=== PATIENT | female | born 1935 | race Caucasian/White ===

== ENCOUNTER 2017-11-14 17:11 | Emergency (ER) | payer OTHER ==
[~2017-11-14] VITALS: Ht 152.4 cm; Wt 61.7 kg
[~2017-11-14 17:11] MED LIST: ACETAMINOPHEN325 M1 PO; AMBIEN 5 MG TABL5 M1 PO; AMLODIPINE; ANTACID650 MG PO; BAYER CHEWABLE81 MG PO; CALCIUM PO; CARAFATE; CARAFATE 1 GM TA1 G1 PO; CIPROFLOXACIN500 M1 PO; COLACE100 MG PO; DOCUSATE SODIU100 MG PO; DYRENIUM100 MG; FLAGYL 250 MG250 MG OR; FLEXERIL PO; GLUCOPHAGE500 MG PO; HYDRALAZINE 2525 MG PO; HYDROCODON-ACE1 EACH PO; HYDROCODONE-AP1 EAC6 PO; IRON PO; IRON325 PO; LIPITOR10 MG PO; LISINOPRIL20 MG PO; METFORMIN; NORCO 5-325 TA1 EACH PO; NORVASC10 MG PO; ONDANSETRON HCL4 M2 PO; PERCOCET PO; PHENERGAN; PHENERGAN 25 MG25 M1 PO; PROTONIX; PROTONIX40 M2 PO; RESTORIL15 MG PO; SENNA PO; TEMAZEPAM; TRIAMTERENE-HC1 EAC1 PO; TYLENOL325 MG PO; VERAPAMIL HCL360 MG PO; VITAMIN D1000 UNI1 PO; ZOFRAN ODT4 MG PO; ZOFRAN4 MG PO
[2017-11-14 17:44] VITALS: BP 128/51
[2017-11-14 20:00] LABS: ABSOLUTE NEUTROPHILS 9.1 thou/uL (1.4-8.2); BASOPHILS 0.4 % (0.0-2.0); EOSINOPHILS 1.4 % (0.0-3.0); HEMATOCRIT 37.8 % (37.0-47.0); HEMOGLOBIN 12.8 gm/dL (12.0-15.0); LYMPHOCYTES 8.3 % (24.0-44.0); MCH 29.3 pg (26.0-34.0); MCHC 33.8 g/dL (28.0-37.0); MCV 86.5 fL (80.0-100.0); MONOCYTES 3.5 % (1.0-8.0); PLATELET COUNT 269 thou/uL (150-400); POLYS 86.4 % (36.0-66.0); RBC 4.37 mil/uL (4.20-5.00); RDW 13.9 % (10.5-14.5); WBC 10.6 thou/uL (4.0-11.0)
[2017-11-14 20:12] LABS: CALCIUM 9.4 mg/dL (8.5-10.1); CREATININE 1.2 mg/dL (0.6-1.0); POTASSIUM 4.1 mmol/L (3.5-5.1)
[2017-11-14 20:17] LABS: ALBUMIN 3.6 g/dL (3.4-5.0); TOTAL BILIRUBIN 1.1 mg/dL (<0.1-1.0); TOTAL PROTEIN 7.8 g/dL (6.4-8.2)
[2017-11-14] MEDS ORDERED: NORCO 10-325 T1 EACH PO (22:35)
[2017-11-14] MEDS ORDERED: LIPITOR10 MG PO (22:35)
[2017-11-14] MEDS ORDERED: MULTIVITAMINS1 EAC6 PO (22:35)
[2017-11-14 23:04] LABS: URINE BILIRUBIN NEGATIVE (Negative); URINE BLOOD TRACE (Negative); URINE CLARITY CLEAR; URINE GLUCOSE-RANDOM* NEGATIVE (Negative); URINE KETONES NEGATIVE (Negative); URINE NITRITE-REFLEX NEGATIVE (Negative); URINE PROTEIN (DIPSTICK) NEGATIVE (Negative); URINE SPECIFIC GRAVITY <= 1.005 (1.005-1.035)
[2017-11-14 23:11] LABS: URINE COLOR YELLOW; URINE LEUKOCYTES-REFLEX 2+ (Negative)
[2017-11-14 23:12] LABS: CASTS None Seen /LPF (None Seen); MUCUS None Seen strn/LPF (None Seen); SQUAMOUS 0-3 Few /LPF (0-3)
[2017-11-14 23:13] LABS: BACTERIA-REFLEX 1-9 Few /HPF (None Seen); CRYSTALS None Seen /LPF (None Seen); URINE RBC 0-2 Rare /HPF (0-2); WBC CLUMPS Occasional (None Seen)
[2017-11-15 01:00] VITALS: BP 102/46
[2017-11-15 04:00] VITALS: BP 106/52
[2017-11-15 05:41] LABS: ANION GAP 9 mmol/L (7-16); BUN 18 mg/dL (7-18); CALCIUM 8.6 mg/dL (8.5-10.1); CHLORIDE 104 mmol/L (98-107); CHOLESTEROL 94 mg/dL (<200); CO2 26 mmol/L (21-32); CREATININE 0.9 mg/dL (0.6-1.0); GLUCOSE 93 mg/dL (74-106); HDL CHOLESTEROL 50 mg/dL (>40); LDL CHOLESTEROL 36 mg/dL (<100); SODIUM 139 mmol/L (136-145); TC:HDL 1.9 Ratio (Not establshd); TRIGLYCERIDE 40 mg/dL (<150); VLDL 8 mg/dL (<40)
[2017-11-15 05:48] LABS: SERUM ASSESSMENT Clear
[2017-11-15 11:12] LABS: ALBUMIN 2.9 g/dL (3.4-5.0); DIRECT BILIRUBIN 0.3 mg/dL (<0.1-0.3); TOTAL BILIRUBIN 0.5 mg/dL (<0.1-1.0); TOTAL PROTEIN 5.9 g/dL (6.4-8.2)
[2017-11-15] MEDS ORDERED: CEFUROXIME250 MG PO (11:16)
[2017-11-15 11:31] VITALS: BP 127/64
[2017-11-15 12:00] VITALS: BP 127/64
[2017-11-15 14:10] LABS: HAV IgM AB (ANTI-HAV IgM) Negative (Negative); HEPATITIS B SURFACE AG Negative (Negative); HEPATITIS C VIRUS AB 0.2 (0.0-0.9)
== END 2017-11-15 12:01 | disposition still patient (30) ==
LOC: ER 17:11 → EROBS 23:12
PROVIDERS: Hospitalist; Nurse Practitioner Family; Physician Assistant
DX: K83.8 Other specified diseases of biliary tract (principal); R74.0 Nonspecific elevation of levels of transaminase and lactic acid dehydrogenase [LDH]; R11.2 Nausea with vomiting, unspecified; I10 Essential (primary) hypertension; E11.9 Type 2 diabetes mellitus without complications; E78.00 Pure hypercholesterolemia, unspecified; K21.9 Gastro-esophageal reflux disease without esophagitis; Z79.899 Other long term (current) drug therapy; Z79.82 Long term (current) use of aspirin

== ENCOUNTER → 2018-02-06 | Outpatient (CLI) | payer OTHER ==
[~2018-02-06] VITALS: Ht 152.4 cm; Wt 62.1 kg
[~2018-02-06] MED LIST changes: +CEFUROXIME250 MG PO; +MULTIVITAMINS1 EAC6 PO; +NORCO 10-325 T1 EACH PO; +TOLTERODINE TART4 MG PO
--- NOTE | ~2018-02-06 | P ---
[facility] [place] [address] PROCEDURE REPORT Name: BAILEY LEIVA [facility] [id number] Admission: 02/06/18 Attend Phys: Gurmeet Carlisle Discharge: Date of : 34 Report #: [id number] THIS REPORT FOR: //name// CC: Gurmeet Gooden MD DATE OF SERVICE: 02/06/2018 PROCEDURE PERFORMED: Upper endoscopy with esophageal dilation. HISTORY OF PRESENT ILLNESS: The patient is an 82-year-old female with history of gastroesophageal reflux disease with severe grade D erosive esophagitis on her last upper endoscopy. This was despite being on Protonix b.i.d. and Carafate twice a day. She is now on Protonix b.i.d. and Carafate 4 times a day, continues to have dysphagia. I did not proceed with dilation last time due to severe esophagitis. Biopsies of the esophagus were negative for intestinal metaplasia or dysplasia. Plan is for repeat upper endoscopy. DESCRIPTION OF PROCEDURE: The risks and benefits of the procedure were explained to the patient, those risks including but not limited to bleeding, perforation, the risk of sedation. She understood these risks and gave informed consent. Sedation was given using propofol per anesthesia. Next, using a standard Olympus upper endoscope, the scope was placed in the patient's mouth and advanced under direct vision through the esophagus, stomach and into the second portion of the duodenum. The upper esophagus was normal. Again, in the mid to distal esophagus severe grade D erosive esophagitis with ulcerations were noted. There was a stricture at the GE junction again noted. Upon entering the stomach, a small to medium sized hiatal hernia was again noted. Overall, the gastric mucosa was normal. 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 No evidence of bleeding. The pylorus was normal and patent. The duodenal bulb, first and second portion were all normal. The scope was then brought back up into the distal esophagus and I proceeded with balloon dilation of the stricture at the GE junction initially using a 12-13-15 balloon and then a 15-16-17 balloon. There was a small amount of bleeding after the 17 mm balloon was held in place for a minute. This bleeding spontaneously stopped. At this point, the scope was then withdrawn and the procedure terminated. The patient tolerated the procedure well. IMPRESSION: 1. Severe grade D erosive esophagitis despite being on b.i.d. proton pump inhibitor therapy and Carafate 4 times a day. This is similar to previous appearance. 2. Strictured gastroesophageal junction, status post balloon dilation. 3. Hiatal hernia. [address] [address] PROCEDURE REPORT Name: ABBIEBAILEY Room #: REG VAN Sood#: [id number] Admission: 02/06/18 Attend Phys: Gurmeet Carlisle Discharge: Date of : 34 Report #: [id number] RECOMMENDATIONS: 1. Observe the patient post procedure. 2. Continue current medical regimen. 3. As we have discussed in the past, options at this point are limited, but would consider Heron fundoplication. With her age and other medical problems she is an increased risk obviously. Could consider promotility agent, but there are potential side effects with Reglan and erythromycin. We will again discuss with the patient and her family. Thank you for allowing me to participate in her care. <ELECTRONICALLY SIGNED> By: Gurmeet Daniel MD 02/07/18 1139 [id number] 1110 Gurmeet Daniel MD /nt
== END | disposition home or self-care (01) ==
LOC: GI 06:17
DX: K22.10 Ulcer of esophagus without bleeding (principal); K22.2 Esophageal obstruction; K44.9 Diaphragmatic hernia without obstruction or gangrene; I10 Essential (primary) hypertension; E78.5 Hyperlipidemia, unspecified; D64.9 Anemia, unspecified; K21.9 Gastro-esophageal reflux disease without esophagitis; Z96.611 Presence of right artificial shoulder joint; Z90.49 Acquired absence of other specified parts of digestive tract; Z85.3 Personal history of malignant neoplasm of breast; Z90.5 Acquired absence of kidney; Z98.890 Other specified postprocedural states; Z79.899 Other long term (current) drug therapy; Z79.82 Long term (current) use of aspirin
CPT/HCPCS: 62110; 62900

== ENCOUNTER → 2019-02-09 | Outpatient (CLI) | payer OTHER ==
[~2019-02-09] VITALS: Ht 152.4 cm; Wt 65.8 kg
[~2019-02-09] MED LIST changes: +FEOSOL45 M1 PO; +TUMS X-STR300 MG PO
--- NOTE | 2019-02-14 08:11 | P ---
[facility] [place] [address] PROCEDURE REPORT Name: BAILEY LEIVA Room #: [facility] [id number] Admission: 02/09/19 Attend Phys: Gurmeet Carlisle Discharge: Date of : 34 Report #: [id number] THIS REPORT FOR: //name// CC: Gurmeet Gooden MD DATE OF SERVICE: 02/09/2019 PROCEDURE PERFORMED: Upper endoscopy with esophageal dilation. HISTORY OF PRESENT ILLNESS: The patient is an 83-year-old female, who is well known to me, who has recurrent dysphagia. She has gastroesophageal reflux disease with a history of severe grade D erosive esophagitis. This is despite being on b.i.d. Protonix and Carafate 4 times a day. We have discussed other possibilities including promotility agents and possible surgery in the past, but she has declined those. Last upper endoscopy was performed on 02/06/2018. Again, severe esophagitis was noted as well as a stricture at the GE junction. This was balloon dilated to a maximum of 17 mm. She did get significant improvement in her dysphagia, which lasted until recently, now having dysphagia again. Her weight has been stable. DESCRIPTION OF PROCEDURE: The risks and benefits of the procedure were explained to the patient, those risks including but not limited to bleeding, perforation and the risk of sedation. She understood these risks and gave informed consent. Sedation was given using propofol per anesthesia. Next, using a standard Olympus upper endoscope, the scope was placed in the patient's mouth and advanced under direct vision through the esophagus, stomach and into the second portion of the duodenum. Once again severe grade D erosive esophagitis was noted throughout the mid and distal esophagus, a stricture was once again noted at the GE junction. There was a similar appearance to 1 year ago. There was active reflux of liquid and semi-liquid material throughout the procedure today. Once I advanced the scope into the stomach, I decompressed and aspirated away all the liquid that was possible. She again has a medium to larger size hiatal hernia. The gastric mucosa was overall normal. Gastric antrum was normal. The pylorus was normal and patent. The duodenal bulb, first and second portion were all normal. The scope was then brought back up into the patient's distal esophagus and I proceeded with balloon dilation of the stricture at the GE junction, initially started with a 15, 16, 17 balloon and went up to 17 and this was held in place for one minute. Next ,an 18 balloon catheter was placed and I held this in place for one minute. No further dilations were performed after 18 mm. At this point, the scope was then withdrawn and the procedure was terminated. The patient tolerated the procedure well. IMPRESSION: [facility] [address] [place] [address] PROCEDURE REPORT Name: ABBIEBAILEY Room #: REG CLI Indigo#: [id number] Admission: 02/09/19 Attend Phys: Gurmeet Carlisle Discharge: Date of : 34 Report #: [id number] 1. Once again severe grade D erosive esophagitis with ulcerations. 2. Stricture gastroesophageal junction, status post balloon dilation. 3. Medium size hiatal hernia. RECOMMENDATIONS: 1. Observe the patient post-procedure. 2. We once again discuss with the patient and her family the potential options of adding Reglan or erythromycin, explained the potential for side effects or consider surgery or simply continue her current regimen and repeating dilation on a p.r.n. basis due to her age and other medical problems. Thank you for allowing me to participate in her care. <ELECTRONICALLY SIGNED> By: Gurmeet Daniel MD 02/14/19 0811 0946 1619 Gurmeet Daniel MD /nt
== END | disposition home or self-care (01) ==
LOC: GI 07:21
DX: K22.10 Ulcer of esophagus without bleeding (principal); K22.2 Esophageal obstruction; K44.9 Diaphragmatic hernia without obstruction or gangrene; K21.9 Gastro-esophageal reflux disease without esophagitis; I10 Essential (primary) hypertension; E78.00 Pure hypercholesterolemia, unspecified; D64.9 Anemia, unspecified; Z98.890 Other specified postprocedural states; Z79.899 Other long term (current) drug therapy; Z98.41 Cataract extraction status, right eye; Z90.49 Acquired absence of other specified parts of digestive tract; Z85.3 Personal history of malignant neoplasm of breast; Z98.42 Cataract extraction status, left eye; Z79.82 Long term (current) use of aspirin; Z90.5 Acquired absence of kidney
CPT/HCPCS: 62110; 62900

== ENCOUNTER 2019-03-03 11:11 | Inpatient (IN) | payer OTHER ==
[~2019-03-03] VITALS: Ht 152.4 cm; Wt 64.8 kg
[2019-03-03 11:12] VITALS: BP 128/67
[2019-03-03] MEDS ORDERED: HYDROXYZINE HCL10 M2 PO (11:52)
[2019-03-03] MEDS ORDERED: METOCLOPRAMIDE10 MG PO (11:52)
[2019-03-03 12:08] LABS: ABSOLUTE NEUTROPHILS 10.6 thou/uL (1.4-8.2); BASOPHILS 0.2 % (0.0-2.0); EOSINOPHILS 0.2 % (0.0-3.0); HEMATOCRIT 37.9 % (37.0-47.0); HEMOGLOBIN 12.4 gm/dL (12.0-15.0); LYMPHOCYTES 6.7 % (24.0-44.0); MCH 29.4 pg (26.0-34.0); MCHC 32.8 g/dL (28.0-37.0); MCV 89.7 fL (80.0-100.0); MONOCYTES 4.9 % (1.0-8.0); PLATELET COUNT 320 thou/uL (150-400); RBC 4.22 mil/uL (4.20-5.00); RDW 13.8 % (10.5-14.5); WBC 12.1 thou/uL (4.0-11.0)
[2019-03-03 12:27] LABS: ANION GAP 9 mmol/L (7-16); BUN 26 mg/dL (7-18); CALCIUM 8.6 mg/dL (8.5-10.1); CHLORIDE 100 mmol/L (98-107); CO2 23 mmol/L (21-32); CREATININE 1.2 mg/dL (0.6-1.0); GLUCOSE 120 mg/dL (74-106); POTASSIUM 4.1 mmol/L (3.5-5.1); SODIUM 132 mmol/L (136-145)
[2019-03-03 12:37] LABS: DIRECT BILIRUBIN 0.2 mg/dL (<0.1-0.2); LIPASE 44 U/L (73-393); SGOT 44 U/L (15-37); SGPT 49 U/L (30-65); TOTAL BILIRUBIN 0.5 mg/dL (<0.1-1.0); TOTAL PROTEIN 6.5 g/dL (6.4-8.2); TROPONIN-I <0.06 ng/mL (<0.06)
[2019-03-03 12:42] LABS: URINE BILIRUBIN NEGATIVE (Negative); URINE BLOOD NEGATIVE (Negative); URINE CLARITY CLEAR; URINE COLOR YELLOW; URINE GLUCOSE-RANDOM* NEGATIVE (Negative); URINE KETONES NEGATIVE (Negative); URINE NITRITE-REFLEX NEGATIVE (Negative); URINE PROTEIN (DIPSTICK) NEGATIVE (Negative); URINE SPECIFIC GRAVITY 1.015 (1.005-1.035); URINE UROBILINOGEN 0.2 E.U./dl (0.2-1.0)
[2019-03-03 12:46] LABS: URINE LEUKOCYTES-REFLEX 1+ (Negative)
[2019-03-03 12:57] LABS: BACTERIA-REFLEX >30 Many /HPF (None Seen); CASTS None Seen /LPF (None Seen); CRYSTALS None Seen /LPF (None Seen); SQUAMOUS 4-10 Moderate /LPF (0-3); URINE RBC None Seen /HPF (0-2); URINE WBC-REFLEX 6-15 Few /HPF (0-5)
[2019-03-03 14:39] VITALS: BP 114/54
[2019-03-03 15:26] VITALS: BP 110/45; BP 120/59
--- NOTE | 2019-03-03 15:32 | NUR ---
PATIENT ARRIVED VIA CART ESCORTED BY ED LIBRARIAN HEAD. PATIENT AOX4, CONSENTS SIGNED, ADMISSION EDUCATION PROVIDED. PT VERBALIZES ACCURATE UNDERSTANDING. PT REQUESTED TO URINATE, STATES SHE IS UNABLE TO GET OUT OF BED R/T WEAKNESS. ASSISTED PT WITH BED WELLS. ADMISSION COMPLETE WITH EXCEPTION OF ASSESSMENT AND PICTURES OF SKIN. REPORT TO BE GIVEN TO ONCOMING RN. FALL PRECAUTIONS IN PLACE, CALL LIGHT IN REACH.
[2019-03-03 19:00] VITALS: BP 119/48
[2019-03-04 04:34] LABS: HEMATOCRIT 32.5 % (37.0-47.0); HEMOGLOBIN 10.6 gm/dL (12.0-15.0); MCH 29.4 pg (26.0-34.0); MCHC 32.6 g/dL (28.0-37.0); RBC 3.61 mil/uL (4.20-5.00); RDW 13.5 % (10.5-14.5)
[2019-03-04 04:53] LABS: CALCIUM 8.4 mg/dL (8.5-10.1); POTASSIUM 3.7 mmol/L (3.5-5.1)
--- NOTE | 2019-03-04 05:02 | NUR ---
Pt. rested quietly at intervals during the night when checked on during frequent rounds. Pt. does have a rash on her buttocks and reports that she has had it for awhile. She reports that she has seen a Dr. about it, but does not seem to know what is causing it. Pt. also informs this nurse that it does itch. Noted to have like speratic tiny skin breakdown from scratching at it and it is red with inflammation. Consult put in for wound care nurse. She has been up to the bedside comode with one assist and gait belt. Pt. offers no c/o pain. Bed alarm is on.
[2019-03-04 08:28] VITALS: BP 153/65
--- NOTE | 2019-03-04 11:40 | EKG ---
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 : 1935 Requested By: Harris Casper Order Number: [id number] MD: Gerardo Renee Measurements Intervals [place] Rate: 96 P: 13 VT: 210 QRS: -64 QRSD: 117 T: 23 QT: 385 QTc: 487 Interpretive Statements Sinus rhythm Borderline prolonged VT interval Incomplete right bundle branch block Left anterior hemiblock Baseline wander in lead(s) V1,V6 Compared to ECG 02/05/2015 03:51:25 No significant change was found Electronically Signed On 03-04-2019 11:40:03 INVESTIGATION MANAGER by Gerardo Renee [email or web address] <ELECTRONICALLY SIGNED> By: Gerardo Renee MD, [facility] 03/04/19 1140 1215 1215 Gerardo Renee MD, [facility] /EPI
[2019-03-04 14:59] VITALS: BP 138/62
--- NOTE | 2019-03-04 17:04 | NUR ---
Assumed patient care at 0715. Vital signs have been stable. Dr Enciso here this am, he discontinued IV fluids. Patient continues on IV ABT therapy with no adverse reactions. Dr Enciso phoned this evening about lab report of "positive blood culture, gram cocci in chains." Awaiting Dr Enciso's return phone call. Dr Caraballo here this am per patient's bilateral knee pain. He is to give patient Steroid Injection in each knee tomorrow. Everything needed for this except Lidocaine is in patient's bin. Dr Viera here this evening. She gave orders for Vancomycin Pharmacy dose, after this nurse informed her of latest lab results. Will inform on-coming nurse and continue to monitor.
[2019-03-04 21:15] VITALS: BP 136/62
--- NOTE | 2019-03-05 04:48 | NUR ---
Pt. rested quietly at intervals during the night when checked on during frequent rounds. She has been voiding frequently and is currently being treated for urinary tract infection. Bed alarm is on.
[2019-03-05 08:00] VITALS: BP 161/66
--- NOTE | 2019-03-05 08:50 | NUR ---
WOUND CONSULT; RE; BILATERAL BUTTOCKS RASH. ERYTHEMA WITH SKIN SLOUGHING. PT STATES "ITS ITCHY" THE RIGHT ELBOW HAS FLAKY ITCHY SKIN WELL. tHE PRESENTATION IS SUSPICIOUS OF A FUNGAL RASH. PT ALERT AND ORIENTED AND CAN TURN HERSELF EASILY. RECOMMENDATION; ANTIFUNGAL BARRIER CREAM TO THE BUTTOCKS BILATERALLY AND THE RIGHT ELBOW, BID RN PRESENT
[2019-03-05] MEDS ORDERED: HYDROCODON-ACE1 EAC7 PO (09:52)
[2019-03-05] MEDS ORDERED: KEFLEX500 M1 PO (09:52)
--- NOTE | 2019-03-05 14:02 | NUR ---
PT ADMITTED RELATED TO UTI, WEAKNESS, BILAT KNEE OSTEOARTHRITIS. CM REVIEWED CHART AND SPOKE WITH CARE TEAM. CM MET WITH PT AT BEDSIDE THIS DAY. PT IS A&O X4. CM ROLE INTRODUCED. PT INDICATED SHE LIVES IN A HOUSE WITH HER TWO SONS AND DTR. SHE INDICATED THERE AREN'T ANY STEPS TO ENTER BUT 10 INSIDE. PT INDICATED SHE HAS TWO WALKERS FOR USE AT HOME ONE ON EACH LEVEL OF THE HOUSE. PT INDICATED SHE HAD BEEN TO A SNF IN [place] IN THE PAST BUT DIDN'T THINK SHE HAD HH. PT INDICATED SHE HOPES TO BE ABLE TO RETURN HOME ONCE MEDICALLY STABLE. CM CALLED AND LEFT FOR PT'S SON. PT HAD INJECTIONS IN BL KNEES THIS MORNING. AWAITING PT AND OT TO SEE PT. CM TO FOLLOW INDICATED WITH DC PLANNING.
[2019-03-05 15:00] VITALS: BP 164/75
--- NOTE | 2019-03-05 15:55 | NUR ---
DISCHARGE PLANNING. DISCHARGE PLANNED FOR TOMORROW. POST ACUTE RECOMMENDED AT DISCHARGE. PATIENT REFERRAL FAXED TO [facility] PER REQUEST. CALL PLACED TO [facility] ADMISSIONS, TO NOTIFY. LANDON TO REVIEW AND NOTIFY. FOLLOWING.
[2019-03-05 19:20] VITALS: BP 133/76
--- NOTE | 2019-03-05 20:04 | NUR ---
Assumed pt care this am , BP was slightly elevated this am, informed md, new medications ordered. Wound care done by wound care nurse to the buttocks and right elbow. Bilateral knees were injecteed by Dr. Caraballo for the pain and swelling. Pt is able to turn from side to side and sit and transfer to the recliner with min help. POC followed, no signs or verbalizations of distress have been noted. IV line was out from endorsement, IV team called and was replaced. When IV for the late pm abx, IV infiltrated, endorsed to the night nurse.
--- NOTE | 2019-03-06 02:28 | NUR ---
PT IS A/O X4.PT IS UP WITH X1 ASSIST WITH WALKER TO BATHROOM OR BSC.PT HAS RASHES ON ELBOW AND BUTTOCKS AND HAS FUNGI CREAM TO APPLY ON.PT IV IS ON THE RFA.PT HAS A LT LIMB ALERT DUE TO MASTECTOMY.PT HAD A LARGE LOSS BM LAST NIGHT .PT DENIED PAIN .WILL CONTINUE TO MONITOR POC
[2019-03-06 07:25] VITALS: BP 142/71
--- NOTE | 2019-03-06 13:22 | NUR ---
ASSUMED CARE OF PT AT APPROX 0700. PT IS ALERT AND ORIENTED X4. DENIES PAIN AND SOA ANDIS ABLE TO MAINTAIN 02 SAT >90 ON RA. EVEN NON LABORED BREATHING. PT STATES THAT SHE IS FEELING SO MUCH BETTER AND IS READY TO GO HOME TO HET KIDS. PT WAS UPDATED ON POC. ASSESSMENT CHARTED. PT DENIES ANY CONCERNS OR QUESTIONS CURRENTLY. NAD NOTED. WILL CONTINUE TO MONITOR.
[2019-03-06 15:30] VITALS: BP 137/68
--- NOTE | 2019-03-08 10:45 | HC ---
[facility] [place] [address] CONSULTATION Name: BAILEY LEIVA Room #: 451-P [facility] IN M.R.#: [id number] Admission: 03/03/19 Attend Phys: Jovanny Enciso MD Discharge: 03/06/19 Date of : 34 Report #: [id number] THIS REPORT FOR: //name// CC: Jovanny Gooden HISTORY OF PRESENT ILLNESS: This frail, confused 83-year-old female lives at home with family assistance. She has had chronic progressive bilateral knee pain in the past, noting some medical and injection management at some point in the past with limited benefit. She is admitted now because of generalized weakness combined with progressive bilateral knee pain making ambulation difficult. At the time of my evaluation, she is somewhat confused. She does note chronic bilateral knee pain making ambulation difficult. She notes she has had some injections at some point in the past with limited benefit. She has been on pain medication in the past, also with some benefit. Objectively both knees demonstrate significant crepitus and mild swelling consistent with severe degenerative arthritis. There is moderate laxity with varus and valgus stress and with manipulation of the patella consistent with severe 3 compartment degenerative arthritis. There is no redness or warmth and no sign of infection. Neurologic status seems to be intact. X-rays of both knees were obtained and hip reveal severe end-stage degenerative arthritis involving all three compartments of both the right and left knee. IMPRESSION: I have discussed this at some length with the patient. She prefers to be very conservative. She notes that she would not be inclined to consider any surgery. She has had some benefit with oral medications directed by her primary care physician. She notes she had temporary improvement with the injection in the past and would like to try that option once again. I would suggest going ahead with bilateral knee injections using 80 mg of Depo-Medrol. We can proceed with discharge and family care at home. We are certainly happy to see her in the office for followup visit and repeat injections in the future if these are helpful. <ELECTRONICALLY SIGNED> By: Audi Caraballo MD 03/08/19 1045 1038 1223 Audi Caraballo MD /nt
== END 2019-03-06 17:45 | DRG 690 ==
LOC: ER 11:11 → EROBS 13:33 → 4W 13:33
PROVIDERS: Emergency Medicine; ADMIT Hospitalist
PROC: 3E0U33Z Introduction of Anti-inflammatory into Joints, Percutaneous Approach (ICD-10-PCS; principal; 2019-03-04)
DX: N39.0 Urinary tract infection, site not specified (principal); M17.0 Bilateral primary osteoarthritis of knee; R06.02 Shortness of breath; R05 Cough; R21 Rash and other nonspecific skin eruption; I35.0 Nonrheumatic aortic (valve) stenosis; E55.9 Vitamin D deficiency, unspecified; E78.00 Pure hypercholesterolemia, unspecified; K44.9 Diaphragmatic hernia without obstruction or gangrene; E11.9 Type 2 diabetes mellitus without complications; I10 Essential (primary) hypertension; K21.9 Gastro-esophageal reflux disease without esophagitis; Z90.12 Acquired absence of left breast and nipple; Z90.5 Acquired absence of kidney; Z90.49 Acquired absence of other specified parts of digestive tract; Z90.89 Acquired absence of other organs; Z98.42 Cataract extraction status, left eye; Z98.41 Cataract extraction status, right eye; Z79.82 Long term (current) use of aspirin; Z79.899 Other long term (current) drug therapy
CPT/HCPCS: 10047

== ENCOUNTER 2019-03-15 21:16 | Emergency (ER) | payer OTHER ==
[~2019-03-15] VITALS: Ht 162.6 cm; Wt 74.8 kg
[~2019-03-15 21:16] MED LIST changes: +HYDROCODON-ACE1 EAC7 PO; +HYDROXYZINE HCL10 M2 PO; +KEFLEX500 M1 PO; +METOCLOPRAMIDE10 MG PO
[2019-03-15 22:35] LABS: HEMATOCRIT 32.7 % (37.0-47.0); HEMOGLOBIN 10.3 gm/dL (12.0-15.0); MCH 28.2 pg (26.0-34.0); MCHC 31.7 g/dL (28.0-37.0); MCV 89.1 fL (80.0-100.0); PLATELET COUNT 312 thou/uL (150-400); RBC 3.67 mil/uL (4.20-5.00); RDW 13.5 % (10.5-14.5); WBC 23.4 thou/uL (4.0-11.0)
[2019-03-15 22:36] LABS: ANION GAP 13 mmol/L (7-16); BUN 32 mg/dL (7-18); CALCIUM 8.3 mg/dL (8.5-10.1); CHLORIDE 99 mmol/L (98-107); CO2 23 mmol/L (21-32); CREATININE 1.4 mg/dL (0.6-1.0); GLUCOSE 133 mg/dL (74-106); POTASSIUM 4.2 mmol/L (3.5-5.1); SODIUM 135 mmol/L (136-145)
[2019-03-15 22:47] LABS: ALBUMIN 2.9 g/dL (3.4-5.0); MAGNESIUM 1.2 mg/dL (1.8-2.4); SGOT 38 U/L (15-37); SGPT 38 U/L (30-65); TOTAL BILIRUBIN 0.6 mg/dL (<0.1-1.0); TOTAL PROTEIN 6.4 g/dL (6.4-8.2); TROPONIN-I <0.06 ng/mL (<0.06)
[2019-03-15 23:18] LABS: URINE BILIRUBIN NEGATIVE (Negative); URINE BLOOD NEGATIVE (Negative); URINE CLARITY CLEAR; URINE COLOR YELLOW; URINE GLUCOSE-RANDOM* NEGATIVE (Negative); URINE KETONES NEGATIVE (Negative); URINE LEUKOCYTES-REFLEX NEGATIVE (Negative); URINE NITRITE-REFLEX NEGATIVE (Negative); URINE PROTEIN (DIPSTICK) NEGATIVE (Negative); URINE SPECIFIC GRAVITY 1.025 (1.005-1.035); URINE UROBILINOGEN 0.2 E.U./dl (0.2-1.0)
[2019-03-15 23:22] LABS: ABSOLUTE NEUTROPHILS 22.2 thou/uL (1.4-8.2); PLATELET ESTIMATE NORMAL
[2019-03-16] MEDS ORDERED: TAMIFLU75 MG PO (02:43)
[2019-03-16 04:42] VITALS: BP 100/44
--- NOTE | 2019-03-16 13:54 | EKG ---
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
== END 2019-03-16 04:45 | disposition home or self-care (01) ==
LOC: ER 21:16
PROVIDERS: Emergency Medicine
DX: D72.829 Elevated white blood cell count, unspecified (principal); D64.9 Anemia, unspecified; N18.9 Chronic kidney disease, unspecified; J10.1 Influenza due to other identified influenza virus with other respiratory manifestations; E83.42 Hypomagnesemia; I10 Essential (primary) hypertension

== ENCOUNTER 2019-03-21 23:41 | Inpatient (IN) | payer OTHER ==
[~2019-03-21] VITALS: Ht 152.4 cm; Wt 84.6 kg
[~2019-03-21 23:41] MED LIST changes: +TAMIFLU75 MG PO
[2019-03-21 23:43] VITALS: BP 77/36
[2019-03-22] VITALS (81 sets, daily range): BP systolic 73–154; BP diastolic 19–58
[2019-03-22 00:29] LABS: BE(vivo) -11.4 mmol/L (-2 to +3); PCO2 VENOUS 30.2 mmHg (41.0-51.0)
[2019-03-22 00:31] LABS: HEMATOCRIT 31.4 % (37.0-47.0); HEMOGLOBIN 10.2 gm/dL (12.0-15.0); MCH 28.4 pg (26.0-34.0); MCHC 32.4 g/dL (28.0-37.0); MCV 87.6 fL (80.0-100.0); PLATELET COUNT 542 thou/uL (150-400); RBC 3.58 mil/uL (4.20-5.00); RDW 13.4 % (10.5-14.5); WBC 26.6 thou/uL (4.0-11.0)
[2019-03-22 00:38] LABS: CALCIUM 8.1 mg/dL (8.5-10.1); CREATININE 2.9 mg/dL (0.6-1.0); POTASSIUM 3.2 mmol/L (3.5-5.1)
[2019-03-22 00:44] LABS: ALBUMIN 2.1 g/dL (3.4-5.0); DIRECT BILIRUBIN 0.2 mg/dL (<0.1-0.2); TOTAL BILIRUBIN 0.3 mg/dL (<0.1-1.0); TOTAL PROTEIN 5.8 g/dL (6.4-8.2)
[2019-03-22 01:29] LABS: URINE BILIRUBIN NEGATIVE (Negative); URINE BLOOD NEGATIVE (Negative); URINE CLARITY CLEAR; URINE COLOR YELLOW; URINE GLUCOSE-RANDOM* NEGATIVE (Negative); URINE KETONES NEGATIVE (Negative); URINE LEUKOCYTES-REFLEX NEGATIVE (Negative); URINE NITRITE-REFLEX NEGATIVE (Negative); URINE PROTEIN (DIPSTICK) NEGATIVE (Negative); URINE SPECIFIC GRAVITY >= 1.030 (1.005-1.035); URINE UROBILINOGEN 0.2 E.U./dl (0.2-1.0)
[2019-03-22 01:31] LABS: ABSOLUTE NEUTROPHILS 24.5 thou/uL (1.4-8.2); LARGE PLATELETS FEW; PLATELET ESTIMATE INCREASED
--- NOTE | 2019-03-22 03:10 | NUR ---
Pt arrived ICU. She is being admit for Leucocytosis, hypotension and Acute renal Failure. She appears to be drowsy, follow simple commands. Denies of any pain upon arrival. NSR on monitor, BP is low. NS bolus is in progress. Skin in cj areas and buttocks are very excoriation with several stages [address] Fecal management system regarding of above. No s/sx of any complication indicates. Temp 95.7 upon arrival, warming blankets applied. Hx obtained from her NH record, continue working toward goals.
--- NOTE | 2019-03-22 11:03 | NUR ---
CONSULTED TO PLACE A PICC FOR A PATIENT NEEDING ACCESS FOR SEPSIS. ORDER AND CONSENT NOTED. THE PROCEDURE WELL RISKS AND BENIFITS DISCUSSED WITH THE PATIENT AND SHE VERBALIZED UNDERSTANDING. THE RIGHT JUGULAR WAS WIDLEY PATENT. A #6F TRIPLE LUMEN POWER INJCETABLE CENTRAL LINE WAS PLACED PER HOSPITAL POLICY AFTER A BEDSIDE TIMEOUT WAS COMPLETED. LINE LENTH WAS 25CM AND ADVANCED TO 7CM EXTERNAL. A STAT CHEST XRAY CONFIRMED BY THE RADIOLOGIST LINE IS IN GOOD POSITION IN THE LOWER SVC. LINE RELAESED FOR USE
--- NOTE | 2019-03-22 13:08 | NUR ---
WOUND CARE CONSULT; THE PATIENT HAS WOUNDS(S) RE; INCONTINENT DERMATITIS, MOSTLY ON THE BUTTOCKS AND PERINEAL AREAS. ALL THE BUTTOCKS AND SACRUM AREAS HAVE ERYTHEMA THAT ARE BLANCHABLE. RECOMMEDNATIONS; 1-2% LIDOCAINE MIXED WITH SILVADINE,COVER WITH A SACRAL FOAM, APPLY BID/PRN RN PRESENT
[2019-03-22 13:09] LABS: CALCIUM 7.1 mg/dL (8.5-10.1); CREATININE 2.2 mg/dL (0.6-1.0); MAGNESIUM 2.7 mg/dL (1.8-2.4); POTASSIUM 3.5 mmol/L (3.5-5.1)
--- NOTE | 2019-03-22 15:41 | NUR ---
CM ASSESSMENT: CASE OPENED FOR DC PLANNING. CLINICAL INFO REVIEWED. PT ADMITS FROM SK[facility] AT [facility] ADMIT WITH LEUKOCYTOSIS, DIARRHEA HYPOTENSION. C. DIFF IS PENDING. INFO OBTAINED FROM PT AND ON PHONE CALL WITH HER SON SYDNEY LEIVA. PT LIVES IN HOUSE WITH 2 SONS AND DTR. USES WALKER AT HOME. NO PREVIIOUS HH. RECENT [facility] ADMIT AND DC TO [place] [place] [facility]. PT AND SON BOTH STATE GOAL TO RETURN TO SKILLED REHAB AT [facility] ONCE MEDICALLY STABLE. SPOKE WITH LANDON IN ADMISSIONS AT FACILITY AND REQUESTED DC PROMOTIONS PRODUCER FAX H&P TO LANDON. LANDON REQUESTS UPDATED ON C. DIFF STATUS WHEN KNOWN.
[2019-03-22 16:17] LABS: POTASSIUM 3.4 mmol/L (3.5-5.1)
--- NOTE | 2019-03-22 16:18 | NUR ---
PT RESIDES AT [facility] FAXED CLINICAL UPDATE SPOKE WITH LANDON IN ADM SHE RECEIVED UPDATE. DP TO FOLLOW.
--- NOTE | 2019-03-22 17:47 | NUR ---
Assumed care at 0700. PT appears asleep and is difficult to rouse. PT is oriented to person, place, and time however she cannot remember why she was brought to the hospital and does not remember earlier conversations. PT worked with therapy this afternoon and appeared more alert afterwards. PT appears anxious and frequently asks staff why she is here and what the treatment plan is. PT has been educated several times but reinforcement is required. PT continued to use a whistle that was around her neck on a string several times in addition to pressing her call light. PT was educated that it was not safe wrapped around her neck and was not allowed in the ICU environment as the noise is disruptive to other patients and family members. PT was tearful and finally moved her whistle after much education from nursing staff. The whistle was placed in the bag with her other belongings. Dr. Champion ordered PT to be transferred [facility] of [facility] with tele. catastrophe claims supervisor and charge nurse are aware. PT's mother and daughter were educated earlier that this could be a possibility. They were agreeable to transfer if it occurred. Fall precautions in place. Call light is within reach. Nurse will continue to monitor.
--- NOTE | 2019-03-22 18:34 | NUR ---
Assumed care at 0700. PT appears drowsy and is oriented x4. Wound care was present to see PT and applied cream and dressing to her buttocks wound. Dr. Estrada on unit to see PT. He initiated sepsis protocol after nurse notified him that PT met sepsis criteria. PT currently has levophed gtt running at 6 mcgs/min. She is on room air. FMS and zeng catheter are patent and intact. Dr. Miller and Dr. Thomas were consulted per sepsis protocol. Providers were contacted. Fall precautions in place. PT is encouraged to drink ensure shakes frequently. PT obliges sometimes and seems to tolerate them well. PO medications were held because PT stated she could "not swallow those." Call light is within reach. PT appears to be resting comfortably. Nurse will continue to monitor.
[2019-03-22 21:47] LABS: CALCIUM 7.1 mg/dL (8.5-10.1); CREATININE 1.9 mg/dL (0.6-1.0)
[2019-03-23] VITALS (48 sets, daily range): BP systolic 89–132; BP diastolic 34–111
[2019-03-23 05:32] LABS: HEMATOCRIT 31.4 % (37.0-47.0); HEMOGLOBIN 10.2 gm/dL (12.0-15.0); MCH 28.6 pg (26.0-34.0); MCHC 32.4 g/dL (28.0-37.0); MCV 88.2 fL (80.0-100.0); RBC 3.55 mil/uL (4.20-5.00); RDW 14.3 % (10.5-14.5)
[2019-03-23 05:33] LABS: WBC 40.7 thou/uL (4.0-11.0)
[2019-03-23 05:49] LABS: % SATURATION 14 % (20-39); IRON 12 ug/dL (50-170); TIBC 85 ug/dL (250-450)
[2019-03-23 05:57] LABS: ALBUMIN 1.5 g/dL (3.4-5.0); CALCIUM 7.1 mg/dL (8.5-10.1); CREATININE 1.7 mg/dL (0.6-1.0); MAGNESIUM 2.3 mg/dL (1.8-2.4); POTASSIUM 3.6 mmol/L (3.5-5.1); TOTAL BILIRUBIN 0.2 mg/dL (<0.1-1.0); TOTAL PROTEIN 4.5 g/dL (6.4-8.2)
[2019-03-23 06:01] LABS: BE(vivo) -13.6 mmol/L (-2 to +3); HCO3 10.8 mmol/L (22.0-26.0); PO2 74.2 mmHg (80.0-100.0)
[2019-03-23 06:02] LABS: PCO2 22.4 mmHg (35.0-45.0); pH 7.303 (7.360-7.450)
--- NOTE | 2019-03-23 07:54 | NUR ---
Progressing toward goals. At beginning of shift levophed titrated up to 12 mcg/min to keep MAP >/= 65. By 0200 able to titrate levophed down to 10 mcg/min, MAP remains > 65. Urine output still marginal at 20-30 cc/hr toward end of shift. Pt had total of 350 cc urine for 12 hours. FMS still patent, 200 cc green-brown liquid stool. Buttocks and cj-area still very excoriated, sacral border drsg intact, surrounding area covered with Z-guard mixed with 2% lidocaine jelly for protection and to ease discomfort.
--- NOTE | 2019-03-23 16:13 | NUR ---
NOTIFIED LANDON IN ADMISSIONS AT [facility] OF PT'S C. DIFF POSITIVE STATUS. NO W/E DC PLANNED.
--- NOTE | 2019-03-23 17:58 | NUR ---
PT appears more disoriented this afternoon. She can correctly identify the year and where she is however she was observed trying to pick at her central line dressing. PT was educated that it should not be pulled out or picked out as this can cause injury and infection. PT verbalized understanding. Nurse changed the dressing on the central line using sterile technique. PT tolerated procedure well. PT is currently sitting in bed. She has refused her ensures. Education was provided. Nurse will continue to encourage supplements. Call light is within reach. Fall precautions in place. Nurse will continue to monitor.
[2019-03-24] VITALS (81 sets, daily range): BP systolic 87–173; BP diastolic 41–154
--- NOTE | 2019-03-24 04:07 | NUR ---
NO OVERNIGHT EVENTS. PT. DROWSY AND SLEEPY THROUGH MOST OF SHIFT. RESPONDS TO NAME, AND FOLLOWS COMMANDS. ONLY ORIENTED TO SELF. SMALL AMOUNT OF ORAL INTAKE THROUGHOUT THE NIGHT. ASSESSMENTS AND VITAL SIGNS CHARTED. MEDICATION TITRATION CHARTED. PT. NOT CURRENTLY PROGRESSING TOWARDS GOALS. CONTINUE TO FOLLOW POC. WILL CONTINUE TO MONITOR.
[2019-03-24 05:09] LABS: HEMOGLOBIN 10.1 gm/dL (12.0-15.0)
[2019-03-24 05:12] LABS: HEMATOCRIT 31.7 % (37.0-47.0); MCH 27.9 pg (26.0-34.0); MCHC 31.8 g/dL (28.0-37.0); MCV 87.7 fL (80.0-100.0); PLATELET COUNT 321 thou/uL (150-400); RBC 3.62 mil/uL (4.20-5.00); RDW 14.3 % (10.5-14.5)
[2019-03-24 05:28] LABS: WBC 41.9 thou/uL (4.0-11.0)
[2019-03-24 05:41] LABS: ALBUMIN 1.4 g/dL (3.4-5.0); CALCIUM 6.7 mg/dL (8.5-10.1); CREATININE 1.3 mg/dL (0.6-1.0); POTASSIUM 3.4 mmol/L (3.5-5.1); TOTAL BILIRUBIN 0.2 mg/dL (<0.1-1.0); TOTAL PROTEIN 4.1 g/dL (6.4-8.2)
[2019-03-24 10:13] LABS: ABSOLUTE NEUTROPHILS 39.8 thou/uL (1.4-8.2)
[2019-03-24 10:14] LABS: TOXIC GRANULATION 1+
[2019-03-24 10:20] LABS: ANISOCYTOSIS 1+; BURR CELLS 2+
--- NOTE | 2019-03-24 12:34 | NUR ---
NURSE TALKED WITH DR. UMANA AND UPDATED HIM IN REGARDS TO PATIENTS URINE OUTPUT 20-30ML/HOUR. BLOOD PRESSURE AND ABILITY TO LOWER RATE OF LEVOPHED. PATIENT WEAKNESS AND INABILITY TO STAND TO GET TO CHAIR. PT/OT EVALUATED PATIENT TODAY. PATIENT COUGHED AFTER SIPPING ON COFFEE, WHICH WAS INFORMED TO DR. UMANA. PLAN TO LET PATIENT REST AT THIS TIME AND GIVE A FLUID BOLUS.
[2019-03-24 12:36] LABS: PHOSPHORUS 3.3 mg/dL (2.5-4.9)
--- NOTE | 2019-03-24 18:34 | NUR ---
report received from hipolito rn at 1300. pt care assumed. ST, titrating levophed to keep map >65, ns bolus infusing 250cc/hr x 4 hrs. bilateral arms edematous, right arm greater than left. fecal management system remains patent.
[2019-03-25] VITALS (71 sets, daily range): BP systolic 91–134; BP diastolic 40–76
--- NOTE | 2019-03-25 04:14 | NUR ---
NO OVERNIGHT EVENTS. PT. REMAINS DROWSY THIS SHIFT, BUT IS MORE VOCAL. SPEECH IS STILL SLURRED. ONLY OREINTED TO SELF. ONETIME LASIX GIVEN, HELPED WITH URINARY OUTPUT. ASSESSMENTS AND VITAL SIGNS CHARTED. MEDICATION TITRATION CHARTED. PT. SLOWLY PROGRESSING TOWARDS GOALS. CONTINUE TO FOLLOW POC. WILL CONTINUE TO MONITOR.
[2019-03-25 05:32] LABS: ALBUMIN 1.3 g/dL (3.4-5.0); CALCIUM 6.8 mg/dL (8.5-10.1); CREATININE 1.1 mg/dL (0.6-1.0); POTASSIUM 3.2 mmol/L (3.5-5.1); TOTAL BILIRUBIN 0.2 mg/dL (<0.1-1.0)
[2019-03-25 05:35] LABS: PHOSPHORUS 2.7 mg/dL (2.5-4.9)
[2019-03-25 06:35] LABS: HEMOGLOBIN 9.3 gm/dL (12.0-15.0); MCH 28.3 pg (26.0-34.0); MCHC 32.3 g/dL (28.0-37.0); MCV 87.9 fL (80.0-100.0); RBC 3.3 mil/uL (4.20-5.00); RDW 14.7 % (10.5-14.5)
--- NOTE | 2019-03-25 19:30 | NUR ---
LEVOPHED TITRATED OFF. ST, ALERT/ORIENTED X 2, C/O DISCOMFORT WITH FENTANYL ADMINISTED X 1, WHEN PT TAKING A DRINK ON HER OWN, DRINKING A SMALL AMOUNT OF COFFEE, PT COUGHED AND SPUTTERED, THEN NOTED RESP RATE INCREASED INTO UPPER 20'S TO LOW 30'S. RR IMPROVED SPONTANEOUSLY BACK INTO 20'S. PT COUGHED UP THICK LEZAMA CHUNK OF SPUTUM. BROOKS WITH ADEQUATE URINE OUTPUT. PT SLOWLY PROGRESSING.
[2019-03-26] VITALS (29 sets, daily range): BP systolic 108–148; BP diastolic 54–80
--- NOTE | 2019-03-26 04:40 | NUR ---
NO OVERNIGHT EVENTS. PT. DID NOT SLEEP WELL THROUGHOUT THE NIGHT. WATCHED TV FOR MOST OF NIGHT. PT. AT TIMES HAS MORE LABORED BREATHING AND CONTIUES TO BREATH IN THE UPPER 20'S. HEART RATE CONSISTENTLY IN THE 120'S. ASSESSMENT AND VITAL SIGNS CHARTED. MEDICATION TITRATION CHARTED. PT. WILL GET SWALLOW STUDY DONE TODAY. CAN HANDLE SWALLOWING VANC IN SMALL AMOUNTS. PT. SLOWLY PROGRESSING TOWARDS GOALS. CONTINUE TO FOLLOW POC. WILL CONTINUE TO MONITOR.
[2019-03-26 05:37] LABS: CALCIUM 7.2 mg/dL (8.5-10.1); CREATININE 1.1 mg/dL (0.6-1.0); MAGNESIUM 1.9 mg/dL (1.8-2.4); PHOSPHORUS 2.4 mg/dL (2.5-4.9); POTASSIUM 3.7 mmol/L (3.5-5.1)
[2019-03-26 08:35] LABS: BE(vivo) -9.9 mmol/L (-2 to +3); HCO3 14.2 mmol/L (22.0-26.0); PCO2 25.1 mmHg (35.0-45.0); PO2 83.2 mmHg (80.0-100.0); pH 7.369 (7.360-7.450); sO2 96.2 % (92.0-98.0)
--- NOTE | 2019-03-26 10:21 | 2DMMODE ---
[facility] [place] [address] 2 D/M-MODE ECHOCARDIOGRAM Name: BAILEY LEIVA Room #: 242-P ADM IN M.R.#: [id number] Admission: 03/22/19 Attend Phys: Yvette Conde Discharge: Date of : 34 Report #: [id number] THIS REPORT FOR: //name// APPROVED REPORT Study performed: 03/26/2019 09:31:57 EXAM: Comprehensive 2D, Doppler, and color-flow Echocardiogram Patient Location: ICU Room #: 242 Status: routine BSA: 1.75 HR: 124 bpm BP: 142/63 mmHg Rhythm: Tachycardia Other Information Study Quality: Technically DifficultTechnically Limited Indications Diabetes Hypertension/HDD 2D Dimensions LVOT Diam: 20.18 (18-24mm) IVC: 21.00 mm Aortic Valve AoV Peak Robert.: 3.65 m/s AO Peak Gr.: 53.36 mmHg LVOT Max P.22 mmHg AO Mean Gr.: 29.75 mmHg LVOT Mean P.57 mmHg AO V2 Mean: 2.51 m/s LVOT Max V: 1.43 m/s AO V2 VTI: 72.56 cm LVOT Mean V: 0.98 m/s KOBY (VTI): 1.35 cm2 LVOT V1 VTI: 30.54 cm KOBY Vmax: 1.25 cm2 SV (LVOT): 97.68 mL Pulmonary Valve PV Peak Robert.: 1.32 m/s PV Peak Gr.: 6.92 mmHg Tricuspid Valve TR Peak Robert.: 3.14 m/s TR Peak Gr.: 39.38 mmHg PA Pressure: 49.00 mmHg [facility] [address] [place] [address] 2 D/M-MODE ECHOCARDIOGRAM Name: BAILEY LEIVA Room #: 242-[facility].#: [id number] Admission: 03/22/19 Attend Phys: Yvette Conde Discharge: Date of : 34 Report #: [id number] Left Ventricle The left ventricle is normal size. There is normal LV segmental wall motion. There is normal left ventricular wall thickness. Left ventricular systolic function is hyperdynamic. LVEF is 65-70%. This study is not technically sufficient to allow evaluation of the LV diastolic function. Right Ventricle The right ventricle is normal size. The right ventricular systolic function is normal. Atria Left atrium is at the upper limits of normal. Right atrium is at the upper limits of normal. Aortic Valve Aortic valve is calcified. Trace aortic regurgitation. Moderate aortic stenosis. Calculated aortic valve area is 1.3 cm2 with maximum pressure gradient of 53 mmHg and mean pressure gradient of 30 mmHg. Mitral Valve The mitral valve is normal in structure. Mild mitral regurgitation. No evidence of mitral valve stenosis. Tricuspid Valve The tricuspid valve is normal in structure. There is mild tricuspid regurgitation. Estimated PAP 50 mmHg. Pulmonic Valve The pulmonary valve is normal in structure. There is no pulmonic valvular regurgitation. Great Vessels The aortic root is normal in size. IVC is dilated and collapses <50% with inspiration. Pericardium There is no pericardial effusion. <Conclusion> Left ventricular systolic function is hyperdynamic. There is normal LV segmental wall motion. LVEF is 65-70%. Aortic valve is calcified. Moderate aortic stenosis. Trace [facility] [place] [address] [place] [address] 2 D/M-MODE ECHOCARDIOGRAM Name: BAILEY LEIVA Room #: 242-P ADM IN M.R.#: [id number] Admission: 03/22/19 Attend Phys: Yvette Conde Discharge: Date of : 34 Report #: [id number] Calculated aortic valve area is 1.3 cm2 with maximum pressure gradient of 53 mmHg and mean pressure gradient of 30 mmHg. The mitral valve is normal in structure. Mild mitral regurgitation. There is mild tricuspid regurgitation. Estimated pulmonary artery pressur of 50 mmHg. There is no pericardial effusion. <ELECTRONICALLY SIGNED> By: Gerardo Renee MD, [facility] 03/26/19 1020 1020 1020 Gerardo Renee MD, FACC /INF
[2019-03-26 10:40] LABS: HEMATOCRIT 24.8 % (37.0-47.0); HEMOGLOBIN 8.1 gm/dL (12.0-15.0); MCH 28.3 pg (26.0-34.0); MCHC 32.7 g/dL (28.0-37.0); MCV 86.8 fL (80.0-100.0); RBC 2.86 mil/uL (4.20-5.00); RDW 14.3 % (10.5-14.5)
--- NOTE | 2019-03-26 18:31 | HC ---
[facility] [address] [place] [address] CONSULTATION Name: BAILEY LEIVA Room #: 242-P [facility] IN M.R.#: [id number] Admission: 03/22/19 Attend Phys: Jefe Viera MD Discharge: Date of : 34 Report #: [id number] THIS REPORT FOR: //name// CC: Jefe Viera Jojo Rod DATE OF SERVICE: 03/22/2019 INFECTIOUS DISEASE CONSULTATION REASON FOR CONSULTATION: I was asked to evaluate concerning septic shock and diarrhea. HISTORY OF PRESENT ILLNESS: The patient is an 83-year-old who presents with acute onset of diarrhea, abdominal discomfort, hypotension, septic shock, brought in through the Emergency Room from a residential. She was hospitalized last week with influenza B and treated for group B Streptococcus urinary tract infection. The patient has no prior history of colitis or C. difficile infection. She was lethargic, but able to give a reasonable history regarding her abdominal discomfort. She was placed on fluids and has received 6 liters so far. Now on vasopressors, Levophed drip. Urine output has begun to warp picker. She still has liquid stool. There has been no vomiting. She has had no chest pain. Cough has diminished. She is on room air with oxygen saturation at 98%. She has had no headaches. She has been lethargic. REVIEW OF SYSTEMS: A 10-point review of systems was negative other than what has been described above. PAST MEDICAL HISTORY: Diabetes, left breast cancer, status post mastectomy, hypertension, gastroesophageal reflux, left nephrectomy, aortic stenosis, anemia, esophageal stricture, carotid artery stenosis, hiatal hernia, right abdominal wall ventral hernia, cholecystectomy, right total shoulder surgery, right humeral fracture with repair, right thyroid lobectomy, bilateral cataract surgery. ALLERGIES: None. MEDICATIONS: As noted on her MAR, now on meropenem, vancomycin and metronidazole. Previously on Tamiflu, finished a course of cephalexin. FAMILY HISTORY: Noncontributory. SOCIAL HISTORY: [facility] resident, nonsmoker, no significant alcohol intake. PHYSICAL EXAMINATION: [facility] [address] [place] [address] CONSULTATION Name: BAILEY LEIVA Room #: 242-P [facility] IN M.R.#: [id number] Admission: 03/22/19 Attend Phys: Jefe Viera MD Discharge: Date of : 34 Report #: [id number] VITAL SIGNS: She was afebrile. Pulse was 107, blood pressure 119/40 on Levophed drip. Right IJ central venous catheter in place. SKIN: With dermatitis to her buttock and perineal region. No palpable adenopathy. HEENT: Eyes: Without scleral icterus. Mouth: Dentition in poor repair. Mild mucositis. NECK: Supple. LUNGS: Clear. HEART: Tachycardic and regular. No appreciable murmur, gallop or rub. ABDOMEN: Mildly distended, tender in the lower abdomen, mostly on the left, she had a ventral hernia, right upper quadrant. This was reducible. No other masses or hepatosplenomegaly. GENITOURINARY: External genitalia without lesion. Indwelling Pelaez catheter. RECTAL: Not performed. EXTREMITIES: Without clubbing, cyanosis or edema. NEUROLOGIC: Cranial nerves were intact. Strength in the upper and lower extremities diffusely weak, but able to move all extremities. Sensation to touch was symmetric and within normal limits. Mood was depressed. BACK: Nontender. LABORATORY STUDIES: Reviewed. Chest x-ray reviewed. CT scan of the abdomen reviewed. Cultures reviewed. IMPRESSION: An 83-year-old, recent diagnosis of group B streptococcal urinary tract infection, influenza B with underlying diabetes, presents now with pseudomembranous colitis due to Clostridium difficile infection. She has acute on chronic kidney disease, likely due to acute tubular necrosis. Septic shock from her colitis. Encephalopathy from her sepsis. RECOMMENDATIONS: We will continue combination therapy with metronidazole intravenously and high dose oral vancomycin. Discontinue meropenem. Continue IV fluids and vasopressors as necessary to maintain appropriate MAP. Serial laboratory studies. Control blood glucose. I have discussed with nursing staff regarding overall plan of care. <ELECTRONICALLY SIGNED> By: Oz Miller MD 03/26/19 1831 56 0027 Oz Miller MD /nt
--- NOTE | 2019-03-26 19:48 | NUR ---
SPEECH THERAPY EVALUATED PT THIS MORNING FOR PO MEDS. UNABLE TO TOLERATE WELL. NEEDS FREQUENT REMINDERS, REDIRECTION, AND ADMINISTRATION IN SMALL AMOUNTS. PT REMAINS FORGETFUL AND CONFUSED. PT PAIN MANAGED WITH MEDICATION ORDERED. NG TUBE PLACED THIS SHIFT. AWAITING CONFIRMATION OF PLACEMENT WITH KUB AT SHIFT CHANGE, PREVIOUS XRAY SHOWED NEED FOR ADVANCEMENT PRIOR TO USE. FECAL MANAGEMENT SYSTEM IN PLACE, PATIENT TOLERATING WELL, MINIMAL FLUID LEAK AROUND SYSTEM. PT SACRAL AREA DRESSING REMAINED CLEAN, DRY, & INTACT THIS SHIFT. DRESSING CHANGE PERFORMED PER ORDERS. PT TOLERATING TURNS FAIRLY, PT ABLE TO VISIBLY RELAX WITH EYES CLOSED AFTER REPOSITIONING COMPLETED. PT IV FLUIDS INFUSING, REMAINS NPO, ACCUCHECKS PERFORMED. PT DID NOT NEED MEDICATION MANAGEMENT THIS SHIFT. FALL PRECAUTIONS IN PLACE, PT RESTLESS BUT NOT IMPULSIVE TO GET OUT OF BED.
[2019-03-27] VITALS (15 sets, daily range): BP systolic 98–136; BP diastolic 39–74
[2019-03-27 06:16] LABS: HEMATOCRIT 25.2 % (37.0-47.0); HEMOGLOBIN 8.1 gm/dL (12.0-15.0); MCH 28.4 pg (26.0-34.0); MCHC 32.1 g/dL (28.0-37.0); MCV 88.3 fL (80.0-100.0); RBC 2.86 mil/uL (4.20-5.00); RDW 14.8 % (10.5-14.5); WBC 9.7 thou/uL (4.0-11.0)
[2019-03-27 06:43] LABS: ALBUMIN 1.9 g/dL (3.4-5.0); CALCIUM 7.2 mg/dL (8.5-10.1); CREATININE 0.8 mg/dL (0.6-1.0); MAGNESIUM 1.6 mg/dL (1.8-2.4); PHOSPHORUS 2.7 mg/dL (2.5-4.9); POTASSIUM 3.4 mmol/L (3.5-5.1); TOTAL BILIRUBIN 0.2 mg/dL (<0.1-1.0); TOTAL PROTEIN 4.1 g/dL (6.4-8.2)
--- NOTE | 2019-03-27 07:35 | NUR ---
pt oriented to self and obeys commands. Multiple attempts of repositioning and retaping the NG tube throughout the shift. New NG tube was placed around midnight which was 68@ right nare. During the insertion of NG tube, pt had small bleeding from right nare and back of the throat. pt pulled out the second NG tube around 4:30am. Pt refused and cried in pain to have another NG inserted. Pt had only 50ml greenish output from NG tube. Abdomen soft to palpation this am. Skin- lidocaine applied, turned pt facing the buttock to the fan. Pain meds helped with tachycardia. pt not progressing towards goals. chart check. report given to JERRY BUENO.
--- NOTE | 2019-03-27 10:23 | NUR ---
WOUND CARE F/U; THE AREA(S) ARE IMPROVED TODAY. PHARMACY WILL ADD SILVADINE TO LIDOCAINE 1%. THE AREAS ARE NOT ANGRY RED AND THE PATIENT IS MUCH MORE COMFORTABLE TODAY. THE PT IS NPO AWAITING A GI STUDY.. RECOMMENDATIONS CONTINUE CURRENT ORDERS. RN PRESENT
--- NOTE | 2019-03-27 11:08 | NUR ---
ASSUMED PATIENT CARE AT 0700. ALERT SELF. ABLE TO KNOW NEEDS. FLOEY AND FMS IN PLACE. PATIENT HR 118 AND RR 22-25. PHYSICIAN AWARE.PATIENT NPO NOW WILL HAVE EGD AT NOON TIME. REPLACED K+ AND MG+. TRANSFER PATIENT TO 200 NOW.
--- NOTE | 2019-03-27 13:14 | NUR ---
CARE TEAM INDICATED THAT PT IS MEDICALLY STABLE TO TRANSFER OUT OF ICU TO CCU THIS DAY. PT TRANSFERED TO RM 200. PT TO HAVE EGD THIS DAY. UPDATE [place] [facility] [place] TO THE FACILITY SKILLED REHAB ONCE MEDICALLY STABLE. CM TO FOLLOW INDICATED WITH DC PLANNING.
[2019-03-27 16:18] LABS: MAGNESIUM 1.7 mg/dL (1.8-2.4); POTASSIUM 3.8 mmol/L (3.5-5.1)
--- NOTE | 2019-03-27 19:56 | NUR ---
PATIENT TRANSFERED FROM ICU. ALERT X2, ABLE TO CONVERSE WITH HER SONS, SPEACH IS SLURRED. NPO AT TIME OF ARRIVAL. COMPLETED EGD, DIET ADVANCE TO CLEAR LIQUID DIET. PATIENT TOLERATED SMALL DRINKS WITH MIN THROAT CLEARING. ST IN THE 120'S ON TELE. NOTIFIED DR CARPIO WITH ORDERS TO GIVE 250 BOLUS. BOLUS STARTED. DENIES SOB, DENIES CHEST PAIN. CREAM FOR BUTTOCKS BEDSIDE. STAFF TO ANTICIPATE NEEDS. CALL LIGHT IN REACH. FALL PRECATIONS IN PLACE.
--- NOTE | 2019-03-27 20:55 | NUR ---
PT WAS TRASFERRED FROM ICU AND STILL HAD MEDICATIONS ORDERED UNDER ICU PROTOCOL. CALLED [facility] SPECIAL EFFECTS PERSON METAL EXPEDITER AND MEDS D/C PER SPECIAL EFFECTS PERSON.
[2019-03-28 03:19] VITALS: BP 120/68
--- NOTE | 2019-03-28 05:21 | NUR ---
ASSUMED CARE OF PT AT 2200HRS. PT IS ALERT BUT ONLY ORIENTED TO PERSON. FALL PRECAUTION IN PLACE. BROOKS AND FMS IN PLACE AND PATIENT. ABX TREATMENT CONTINUED. PT IS ON SINUS TACH WUTH BBB. PT WAS ABLE TO GET COMFORTABLE AND SLEEP PART OF THE SHIFT. VSS AND NO S/S OF ACUTE DISTRESS. WILL CONTINUE TO MONITOR.
--- NOTE | 2019-03-28 06:06 | NUR ---
ASSUMED CARE AROUND 1914. AXOX1. KEPT UPRIGHT FOR FLUID INGESTION. ISO FOR ACTIVE C.DIFF. FLOEY,FECAL MNGT SYSTEM INTACT. NO S/S ACUTE DISTRESS NOTED OR REPORT. REPORT GIVEN TO INCOMING RN AT AROUND 2200.
[2019-03-28 07:20] VITALS: BP 123/71
[2019-03-28 07:27] LABS: CALCIUM 7.5 mg/dL (8.5-10.1); CREATININE 0.9 mg/dL (0.6-1.0); PHOSPHORUS 3.1 mg/dL (2.5-4.9); POTASSIUM 3.8 mmol/L (3.5-5.1)
--- NOTE | 2019-03-28 09:44 | NUR ---
Recommend reduce final goal rate of tpn to 65ml/hr.
[2019-03-28 10:57] VITALS: BP 120/63
--- NOTE | 2019-03-28 14:49 | NUR ---
WOUND CARE /RE-CONSULT; I WAS RE-CONSULTED RELATED TO THE PERINEAL RASH. ABSENT OF GENERALZED ERYTHMA. PIMPLE OR RAISED AREAS NOTED. WE HAVE BEEN USING INTERDRY. RECOMMENDAIONS; THE ONLY RECOMMENDATION I CAN ADD IS A FUNGAL BARRIER CREAM. I WILL F/U TOMORROW. RN PRESENT
[2019-03-28 15:42] VITALS: BP 133/69
--- NOTE | 2019-03-28 18:35 | NUR ---
ASSUMED CARE 0700. ALERT TO SELF AND PLACE. DYSPHAGIC/APHAGIC, PLACED BACK ON NPO STATUS. PATIENT SPIT UP MODERATE AMOUNT OF THICK PHLEMM. ORALCARE PROVIDED PHYSICIAN NOTIFIED. REPOSITIONED TOELRATED. DENIES CHEST PAIN. DENIES SOB. DR CARPIO NOTIFIED OF LOW FEVER. MINIMAL STOOL IN FECAL MANAGEMENT BAG. CONTINUES ON FLUIDS AND ANTIBIOTICS. FALL PRECAUTIONS IN PLACE. SOFT CALL LIGHT IN REACH AND DEMONSTRATES USE.
[2019-03-28 21:20] VITALS: BP 131/65
--- NOTE | 2019-03-29 04:56 | NUR ---
PT REPOSITIONED Q 2 HRS AND NEEDED, BROOKS AND FMS REMAIN INTACT, EXTREMITIES ELEVATED, TPN STARTED AT 40ML PER HOUR, NO C/O PAIN, REMAINS ALERT TO SELF, WILL CON'T TO MONITOR PER PPOC.
[2019-03-29 06:22] VITALS: BP 142/80
[2019-03-29 07:15] VITALS: BP 119/62
[2019-03-29 07:19] LABS: CALCIUM 7.6 mg/dL (8.5-10.1); CREATININE 0.9 mg/dL (0.6-1.0); MAGNESIUM 1.8 mg/dL (1.8-2.4); PHOSPHORUS 3.2 mg/dL (2.5-4.9); POTASSIUM 3.5 mmol/L (3.5-5.1); TOTAL BILIRUBIN 0.5 mg/dL (<0.1-1.0); TOTAL PROTEIN 4.5 g/dL (6.4-8.2)
--- NOTE | 2019-03-29 10:50 | NUR ---
VASCULAR ACCESS NURSE ROUNDING- PATIENT CONTINUES ON TPN AND CONTINUES TO NEED CENTRAL ACCESS.
[2019-03-29 11:35] VITALS: BP 116/68
[2019-03-29 13:00] LABS: HEMATOCRIT 27.4 % (37.0-47.0); HEMOGLOBIN 8.9 gm/dL (12.0-15.0); MCH 28.8 pg (26.0-34.0); MCHC 32.5 g/dL (28.0-37.0); MCV 88.6 fL (80.0-100.0); PLATELET COUNT 315 thou/uL (150-400)
[2019-03-29 13:40] LABS: ABSOLUTE NEUTROPHILS 8.6 thou/uL (1.4-8.2); ANISOCYTOSIS 1+
[2019-03-29 13:41] LABS: POLYCHROMASIA OCCASIONAL
--- NOTE | 2019-03-29 14:27 | NUR ---
Case discussed with the care team. Pt getting NG placed and CT today. Possible transfer back to ICU. Pt is on TPN due to severe cdiff colitis. [facility] updated. Dc timeframe is uncertain. PT/OT following for return to SNF rehab at pr.
[2019-03-29 15:15] VITALS: BP 128/79
--- NOTE | 2019-03-29 16:29 | NUR ---
ASSUMED CARE 0700. ALERT TO SELF, TO PLACE, TO SITUATION, COMPLAINT WITH CARES, DENIES SOB, PAIN MANAGED WITH MEDICATIONS AND REPOSTIONING. REMAINS NPO, ICE CHIPS OKAY MUST FOLLOW ASPIRATION PROTOCOL, EDUCATED PT FOR NEED OF NG PLACEMENT DUE TO NPO STATUS . NEW GRAD RN LEFT NARE #68. BROOKS AND FECAL TUBE IN PLACE. WORKED WITH THERAPY. CALL LIGHT IN REACH.
[2019-03-29 19:23] VITALS: BP 131/77
[2019-03-30 00:21] VITALS: BP 131/73
[2019-03-30 04:15] VITALS: BP 134/67
--- NOTE | 2019-03-30 06:25 | NUR ---
PATIENT CARES WERE ASSUMED AT SHIFT CHANGE. PATIENT WAS ASSESSED AND MEDS WERE PASSED. ON HOURLY ROUNDS ORAL CARE WAS GIVEN IN HOPE TO CLEAN HER MOUTH. NG RESIDUALS WERE CHECKED AT 0000 AND 0600. NO RESIDULE. PO MEDS WERE GIVEN IN THE NG AND FLUSHED WITH 60CC OF WATER. HOURLY ROUNDS WERE DONE AND THE BED IS IN A LOW AND LOCKED POSITION
[2019-03-30 07:20] VITALS: BP 130/71
[2019-03-30 07:31] LABS: HEMATOCRIT 25.9 % (37.0-47.0); HEMOGLOBIN 8.3 gm/dL (12.0-15.0); MCV 87.6 fL (80.0-100.0); RBC 2.96 mil/uL (4.20-5.00); RDW 15.3 % (10.5-14.5); WBC 7.7 thou/uL (4.0-11.0)
[2019-03-30 07:40] LABS: ALBUMIN 1.8 g/dL (3.4-5.0); ANION GAP 8 mmol/L (7-16); BUN 15 mg/dL (7-18); CALCIUM 7.4 mg/dL (8.5-10.1); CHLORIDE 116 mmol/L (98-107); CO2 21 mmol/L (21-32); CREATININE 0.8 mg/dL (0.6-1.0); GLUCOSE 154 mg/dL (74-106); MAGNESIUM 1.5 mg/dL (1.8-2.4); PHOSPHORUS 3.1 mg/dL (2.5-4.9); POTASSIUM 3.3 mmol/L (3.5-5.1); SGOT 14 U/L (15-37); SGPT 10 U/L (30-65); SODIUM 145 mmol/L (136-145); TOTAL BILIRUBIN < 0.1 mg/dL (<0.1-1.0); TOTAL PROTEIN 4.3 g/dL (6.4-8.2)
--- NOTE | 2019-03-30 10:50 | NUR ---
Pt's sons here this am and asking for cm. No family here at this time. Message left for son Papo with my contact number.
[2019-03-30 11:10] VITALS: BP 130/78
--- NOTE | 2019-03-30 11:38 | P ---
[facility] [address] [place] [address] PROCEDURE REPORT Name: BAILEY LEIVA Room #: 200-I ADM IN M.R.#: [id number] Admission: 03/22/19 Attend Phys: Jefe Viera MD Discharge: Date of : 34 Report #: [id number] THIS REPORT FOR: //name// CC: Jefe Viera MD [facility] DATE OF SERVICE: 03/27/2019 PROCEDURE PERFORMED: Upper endoscopy. HISTORY OF PRESENT ILLNESS: The patient is an 83-year-old female who is well known to me with a history of severe gastroesophageal reflux disease, previous history of esophagitis despite being on b.i.d. PPI therapy, actually underwent her last upper endoscopy by myself in 02/09 of last year. She was noted to once again have grade D erosive esophagitis with ulceration, stricture at the gastroesophageal junction, status post balloon dilation at that time, medium size hiatal hernia. The patient unfortunately is here with severe Clostridium difficile colitis, was in the ICU until today. A CT scan of the chest, abdomen and pelvis was performed for further evaluation of her C. diff and the chest portion noticed esophagus somewhat dilated with debris filling the esophagus to the upper esophagus. The patient has been somewhat confused recently. She has not been taking her p.o. vancomycin easily. We therefore discussed a possible upper GI; however, concerned that if she has a food impaction, this may be cause an aspiration. We therefore decided to proceed with an upper endoscopy. DESCRIPTION OF PROCEDURE: The risks and benefits of the procedure were explained to the patient's son, those risks including but not limited to bleeding, perforation and the risk of sedation. He understood these risks and gave informed consent. The procedure was performed under general anesthesia. Once the patient was intubated and sedated, I then proceeded with a standard Olympus upper endoscope. The scope was placed in the patient's mouth and advanced under direct vision through the esophagus, stomach and into the second portion of the duodenum. In the esophagus, there was a moderate amount of thick secretions. It took several minutes, but I was able to clear this both with suction and with flushing. Eventually, the esophagus was clear There was no food or pills or debris otherwise noted. The patient has a grade B erosive esophagitis actually much improved in her last scope in January. The esophagus is somewhat dilated. There is no stricture at this time. Again, she does have a medium-sized hiatal hernia. There was no significant food residual or liquid in her stomach. The gastric mucosa overall was normal. The pylorus was normal and patent. The duodenal bulb, first and second portion were all normal. At this point, the scope was then withdrawn and the procedure terminated. The patient tolerated the procedure well. IMPRESSION: [facility] [address] [place] [address] PROCEDURE REPORT Name: BAILEY LEIVA Room #: 200-I [facility] IN M.R.#: [id number] Admission: 03/22/19 Attend Phys: Jefe Viera MD Discharge: Date of : 34 Report #: [id number] 1. Thick secretions within the esophagus cleared as described above. 2. Grade B erosive esophagitis/this is actually improved. 3. Medium size hiatal hernia again noted. 4. Otherwise, normal upper endoscopy. RECOMMENDATIONS: We will start clear liquids as tolerated. If the patient is having difficulty, may require speech pathology evaluation at that point. Thank you for allowing me to participate in her care. <ELECTRONICALLY SIGNED> By: Gurmeet Daniel MD 03/30/19 1138 [id number] Gurmeet Daniel MD /nt
[2019-03-30 15:45] VITALS: BP 130/73
[2019-03-30 15:50] LABS: POTASSIUM 3.9 mmol/L (3.5-5.1)
--- NOTE | 2019-03-30 19:08 | NUR ---
ASSUMMED PT CARE AT APPROXIMATELY 0700. PT AWAKE AND ORIENTED TO PERSON, PLACE, AND SITUATION. FREQUENT REORITENTATION PROVIDED. PT DENIES HAVING CHEST PAIN. PT DENIES HAVING SOB. PT STATED HER LEGS FELT UNCOMFORTABLE. REPOSITIONED. PT STATED LEGS WERE IN A MORE COMFORTABLE POSITION. ELECTROLYTE PROTOCOL FOLLOWED. PT TRIED HAVING THICKENED LIQUIDS. PT BECAME NAUSEATED. GAVE PT ANTI-EMETIC. PT STATED NAUSEA RESOLVED. NOTICED R ARM AND R HAND EDEMA. NOTIFIED DR. ROQUE ORDERED VENOUS ULTRASOUND. AWAITING RESULTS. VITAL SIGNS STABLE. BLOOD SUGARS STABLE. PT COMFORTABLE IN BED. PT DENIES HAVING FURTHER CONCERNS.
[2019-03-30 19:19] VITALS: BP 122/68
[2019-03-31 03:10] VITALS: BP 109/43
--- NOTE | 2019-03-31 04:58 | NUR ---
ASSUMED PT CARE AT 1900. PT IS LAYING IN BED WITH NO SIGN OF DISTRESS NOTED IN PT. BROOKS CATH, FECAL MANAGEMENT SYSTEM IS IN PLACE. PT IS ALERT. NO FAMILY AT BEDSIDE. FALL PRECAUTION IN PLACE. ASSESSMENT COMPLETED AND DOCUMENTED. SCHEDULED MEDS ADMINISTERED TO PT VIA NGT. PT IS STABLE. CONTINUE TO MONITOR PT. DENIES ANY PAIN, NO FURTHER NEEDS AT THIS TIME.
[2019-03-31 06:52] LABS: MAGNESIUM 1.7 mg/dL (1.8-2.4); PHOSPHORUS 2.8 mg/dL (2.5-4.9)
[2019-03-31 06:55] LABS: ALBUMIN 1.7 g/dL (3.4-5.0); CALCIUM 7.6 mg/dL (8.5-10.1); CREATININE 0.9 mg/dL (0.6-1.0); POTASSIUM 3.9 mmol/L (3.5-5.1); TOTAL BILIRUBIN 0.1 mg/dL (<0.1-1.0); TOTAL PROTEIN 4.3 g/dL (6.4-8.2)
[2019-03-31 07:20] VITALS: BP 115/61
[2019-03-31 11:25] VITALS: BP 120/55
--- NOTE | 2019-03-31 14:59 | NUR ---
VASCULAR TEAM NOTIFIED BY WILIAN EDWARDS THAT CXR STATED LINE TOO DEEP. DOCUMENTED THAT EXTERNAL WAS AT 7, BUT UPON ASSESSMENT EXTERNAL WAS AT 4CM SO WITHDREW ADDITIONAL 3CM TO TOTAL 7CM EXTERNAL. DRG/STATLOCK CHANGED
[2019-03-31 15:55] VITALS: BP 137/74
[2019-03-31 19:19] VITALS: BP 132/75
[2019-04-01 03:20] VITALS: BP 144/88
--- NOTE | 2019-04-01 05:19 | NUR ---
ASSUMED PT CARE AT 1900. PT IS ALERT BUT CONFUSED. PATIENT IS LAYING IN BED. HEART RATE ELEVATED TRACKWALKER NOTIFIED. ASSESSMENT COMPLETED AND DOCUMETED. SCHDULED MEDS ADMINISTERED TO PT. NGT IN PLACE. BROOKS AND FECAL MANAGEMENT SYSTEM IN PLACE. DENIES ANY PAIN. MONITOR HEART RATE. DENIES ANY FURTHER NEED AT THIS TIME.
[2019-04-01 07:15] VITALS: BP 130/80
[2019-04-01 07:28] LABS: CALCIUM 7.7 mg/dL (8.5-10.1); CREATININE 0.9 mg/dL (0.6-1.0); MAGNESIUM 1.5 mg/dL (1.8-2.4); PHOSPHORUS 2.6 mg/dL (2.5-4.9); POTASSIUM 3.9 mmol/L (3.5-5.1)
[2019-04-01 11:20] VITALS: BP 121/63
--- NOTE | 2019-04-01 17:36 | NUR ---
ASSUMED CARE OF PT AT SHIFT CHANGE. ASSESSMENTS CHARTED. MEDS GIVEN PER APR. PT TACHYPNEIC WITH ELEVATED HR. ABX CONTINUE. NO C/O PAIN. ACIDOPHILUS WAS ORDERED BUT UNABLE TO ADMINISTER D/T IT CLOGGING THE NG TUBE. ADJUSTED BROOKS BUT IT CONTINUES TO LEAK. WILL CONTINUE TO MONITOR AND FOLLOW POC.
[2019-04-01 20:37] VITALS: BP 116/54
[2019-04-02 05:08] VITALS: BP 130/68
--- NOTE | 2019-04-02 05:17 | NUR ---
ASSUMED PT CARE AT 1900. PT IS DROWSY. PT IS STABLE LAYING IN BED. ASSESSMENT COMPLETED AND DOCUMENTED. BROOKS IN PLACE. FECAL MANAGEMENT IN PLACE. VITAL SIGNS STABLE BUT HEART RATE ELEVATED. SCHEDULED MED ADMINISTERED VIA NGT. TURNS COMPLETED. CONTINUE TO MONITOR PATIENT.
[2019-04-02 07:10] VITALS: BP 133/79
[2019-04-02 11:10] VITALS: BP 124/73
--- NOTE | 2019-04-02 13:49 | NUR ---
WOUND CARE F/U; ASSESSMENT COMPLETED. THE HEELS SEEM TO BE BOGGY TODAY. THEY ARE OFFLOADED CURRENTLY WITH PILLOWS. THE BUTTOCKS ARE MUCH IMPROVED TODAY. PICTURES TAKEN. CONTINUE CURRENT TREATMENT
[2019-04-02 16:30] VITALS: BP 124/79
--- NOTE | 2019-04-02 17:49 | NUR ---
ASSUMMED PT CARE AT APPROXIMATELY 0700. PT A&O X4. ASSESSMENT CHARTED. FALL PRECAUTIONS IN PLACE. PT DENIES HAVING CHEST PAIN. PT DENIES HAVING SOB. PT DENIES HAVING ACUTE PAIN. PT STATED SHE HAD NAUSEA. PT RECEIVED ANTI-EMETIC. PT STATED ANTI-EMETIC HELPED RELIEVE NAUSEA. ELECTROLYE PROTOCOL FOLLOWED. NG TUBE C/D/I. NOTIFIED GI SUPERVISOR [employer] WORK[employer] JANET ROWLEY OF PT HR BEING ELEVATED SINUS TACHY. CARDIOLOGY CONSULTED. CARDIO STATED NO NEW ORDERS. PT VITAL SIGNS STABLE. PT BLOOD SUGARS STABLE. PT COMFORTABLE IN BED. PT DENIES HAVING FURTHER CONCERNS. APPLIED HEAL PROTECTANT BOOTS TO PT,
[2019-04-02 20:30] VITALS: BP 134/79
[2019-04-03 00:05] VITALS: BP 144/84
[2019-04-03 04:21] VITALS: BP 143/85
[2019-04-03 07:14] LABS: HEMATOCRIT 24.8 % (37.0-47.0); HEMOGLOBIN 8.1 gm/dL (12.0-15.0); MCH 28.8 pg (26.0-34.0); MCHC 32.5 g/dL (28.0-37.0); MCV 88.4 fL (80.0-100.0); RBC 2.8 mil/uL (4.20-5.00); RDW 15.2 % (10.5-14.5); WBC 9.6 thou/uL (4.0-11.0)
[2019-04-03 07:17] LABS: ALBUMIN 1.8 g/dL (3.4-5.0); CALCIUM 7.6 mg/dL (8.5-10.1); CREATININE 0.8 mg/dL (0.6-1.0); MAGNESIUM 1.7 mg/dL (1.8-2.4); TOTAL BILIRUBIN 0.2 mg/dL (<0.1-1.0); TOTAL PROTEIN 4.7 g/dL (6.4-8.2)
--- NOTE | 2019-04-03 07:21 | NUR ---
PATIENTS CARES WERE ASSUMED AT SHIFT CHANGE. PATIENT WAS ASSESSED AND MEDS WERE PASSED. SOME MEDS THAT WERE INTENDED TO BE ADMINISTERED THROUGH THE NG TUBE WERE PARKED DUE TO NG BEING CLOGGED BICARB PROTOCAL WAS UTALISED SINCE MIDNIGHT STILL AT 0600 NOT WORKING. NG MY NEED REPLACED. WILL PUT COLA IN WITH THE BYCARB AT MY DEPART. HOURLY ROUNDS WERE DONE. PASSED IN REPORT THAT VEHICLE MONITOR TECHNICIAN NEED TO BE CONTACTED TO MOVE THIS PATIENT TO A DNR. NO PROGRESS HAS BEEN SEEN BY NURSING THIS WEEK. WILL CONTINUE TO DO HOULY ROUNDS TURN PATIENT LEFT TO RIGHT
[2019-04-03 08:49] VITALS: BP 129/73
[2019-04-03 12:57] VITALS: BP 135/83
--- NOTE | 2019-04-03 13:56 | NUR ---
Recommend trial of enteral feeding Vital AF 1.2 to start 25ml/hr with goal of 60ml/hr. Taper off tpn as tube feed reaches goal. Ensure adequate total fluid as output remains high.
[2019-04-03 18:36] VITALS: BP 129/88
[2019-04-03 19:54] VITALS: BP 139/78
--- NOTE | 2019-04-03 20:16 | NUR ---
ASSUMMED PT CARE AT APPROXIMATELY 0700. PT AWAKE AND ORIENTED TO PERSON, PLACE, AND SITUATION. FREQUENT REORIENTATION PROVIDED. FALL PRECAUTIONS IN PLACE. PT DENIES HAVING CHEST PAIN. PT DENIES HAVING SOB. PT DENIES HAVING ACUTE PAIN. PT'S NG TUBE UN-CLOGGED. NOTIFIED DR. KEANE OF [employer]BI[employer] FREQUENTLY CLOGGING NG TUBE. MED DC. TUBE FEEDINGS ORDERED THROUGH GI. TUBE FEED BAG RECIEVED. LOOKED ON CCU FOR TUBE FEEDING MACHINE. NO TUBE FEEDING MACHINE. CALLED ALL OF THE OTHER UNITS IN HOSPITAL TO SEE IF THEY HAD TUBE FEEDING MACHINE. ALL UNITS STATED "NO." INFORMED PSYCHOLOGY PHYSICIAN JOSE DE JESUS MULTIPLE TIMES OF NOT FINDING TUBE FEEDING MACHINE. WALKED TO ICU. ICU DID NOT HAVE TUBE FEEDING MACHINE. CALLED JANET ROWLEY NP OF NOT BEING ABLE TO LOCATE A TUBE FEEDING MACHINE. JANET STATED UNDERSTANDING. ELECTROLYTE PROTOCOL FOLLOWED. PT PROVIDED PASSIVE ROM ACTIVITIES C PT. PT COMFORTABLE IN BED. PT DENIES HAVING FURTHER CONCERNS. VITAL SIGNS STABLE. BLOOD SUGARS STABLE.
[2019-04-04 04:09] VITALS: BP 134/75
[2019-04-04 09:23] VITALS: BP 130/69
[2019-04-04 13:17] VITALS: BP 120/66
--- NOTE | 2019-04-04 15:15 | NUR ---
spoke with son Papo and Juanita in admissions at [facility]. Patient cont with NG tube and not stable for dc to skilled care. Goal at dc is to dc to skilled care. Papo reports plan for [facility] skilled then hopefully return home. He was at bedside today watching sarath zee. casemgt following.
--- NOTE | 2019-04-04 16:18 | NUR ---
ASSUMED CARE 0700, ALERT AND ORIENTED X3 WITH FORGETFULNESS. DROWSY AND SLEEPY, PT WAS AWAKE WITH SON VISITED DURING THE CHIEFS PARADE. DENIES SOB, MOANS OUT WITH REPOSITIONING. FECAL TUBE REMOVED THIS AFTERNOON. CONTINUE TO APPLY BARRIER CREAMS, TUBE FEEDING STARTED AT 11AM AND TPN RATE REDUCED TO 40ML/HR. TPN TO BE STOPPED TONIGHT. RATE ON FEEDING 25ML AND TO INCREASE PER ORDERS EVER 8 HOURS UNTIL GOAL RATE IS REACHED. HOB ELEVATED. CALL LIGHT IN REACH. STAFF TO ANTICIPATE NEEDS. CONTINUES ON ISOLATION FOR C-DIFF. REMAIN NPO. CONTINUE TO MONITOR.
--- NOTE | 2019-04-04 17:11 | NUR ---
PT IS FROM [facility] FAXED CLINICAL UPDATE TO FACILITY RECEIVED CONFIRMATION AND LEFT MSG WITH LANDON IN ADM. DP TO FOLLOW.
[2019-04-04 19:06] VITALS: BP 126/61
[2019-04-05 03:55] VITALS: BP 128/63
--- NOTE | 2019-04-05 04:36 | NUR ---
ASSUMED CARE AT 1900. PT A0 2-3. INTERMITTENT CONFUSION. VSS. PT FECAL MANAGEMENT HAS DC'D YESTERDAY, PT CONTINUE TO HAVE LOOSE STOOL. Q2 TURNS AND WATER FLUSHES FOR NG TUBE. BG CHECKS Q4. DENIES PAIN, BUT REPORTS GENERALIZED BODY ITCHING. A CHLOROHEXIDENE BATH GIVEN. BROOKS CATHETER IN PLACE WITH GOOD URINE OUTPUT. REMAINS MOSTLY TACHY ON THE MONITOR. ISOLATION MAINTAINED. NO FURTHER CONCERNS AT THIS TIME. WILL CONTINUE TO FOLLLOW POC.
[2019-04-05 06:06] LABS: HEMATOCRIT 24.4 % (37.0-47.0); HEMOGLOBIN 7.8 gm/dL (12.0-15.0); MCH 28.2 pg (26.0-34.0); MCV 88.2 fL (80.0-100.0); RBC 2.77 mil/uL (4.20-5.00); RDW 15.7 % (10.5-14.5); WBC 9.1 thou/uL (4.0-11.0)
[2019-04-05 07:53] VITALS: BP 119/61
--- NOTE | 2019-04-05 10:29 | NUR ---
WOUND CARE F/U; THE HEELS ARE BEING OFFLOADED WELL WITH PRAFO BOOTS, NO S/S OF PRESSURE INJURY TO THE HEELS. THE BUTTOCKS IS REDDENED FROM MOISTURE AND INCONTINENCE. BUTTOCKS WOUNDS ARE HEALED. RECOMMEDNATIONS; CONTINUE ALL CURRENT WOUND CARE ORDERS. DISCUSSED WITH STAFF
[2019-04-05 11:00] VITALS: BP 132/66
--- NOTE | 2019-04-05 14:29 | NUR ---
Case discussed with the care team. Possible ltac referral d/t level of care needs. TPN dc'd and pt getting enteral feedings via ng. Continuing on po vanco and still have lots of loose stools. Pt remains weak and is being seen by PT/OT. Will send referral to Rupinder to review and update her sons.
[2019-04-05 17:00] VITALS: BP 135/65
--- NOTE | 2019-04-05 17:50 | NUR ---
ASSUMED CARE PT SHIFT CHANGE. ASSESSMENTS CHARTED. MEDS GIVEN PER APR. VSS. PT ALERT, ORIENTED X2, FORGETFUL. DROWSY THIS AM. HR IN 170S THIS AM. CARDIOLOGY NOTIFIED. PT STARTED ON METOPROLOL. PT HR STABLE THROUGHOUT PSYCHIATRIC. PT WORKED WITH PHYS THERAPY THIS SHIFT, TOELRATED FAIR--SEE PHYS THERAPY NOTES. WOUND CARE COMPLETED PER ORDERS. Q2 TURNS ENFORCED. PT CONTINUES TO HAVE BOWEL MOVEMENTS OF LIQUID CONSISTENCY. ISOLATION PRECAUTIONS MAINTAINED. TUBE FEEDS CONTINUE, PT TOLERATING. ADVANCED RATE PER ORDERS. CURRENTLY 45ML/HR. PT DENIES NEEDS AT THIS TIME. CONTINUING TO MONITOR.
[2019-04-05 20:26] VITALS: BP 122/76
--- NOTE | 2019-04-06 03:23 | NUR ---
PT HAS BEEN ASLEEP MOST OF THE NIGHT. AOX 2. TF RATE ADVANCED TO 55ML/HR. PT TOLERATING WELL . VITALS STABLE. PAUSE MORE CONTROLLED. PT CONTINUES TO HAVE LOOSE CONTINOUS STOOL. Q2 TURNS IMPLEMENTED. NO FURTHER CONCERNS AT THIS TIME. WILL CONTINUE WITH POC.
[2019-04-06 08:36] VITALS: BP 138/66
--- NOTE | 2019-04-06 10:22 | NUR ---
ORIENTED TO SELF. SOMNOLENT. DENIES PAIN. SR/ST PER TELE; BETA SWATI INCREASED. CDT ISOLATION. WILL CONTINUE TO MONITOR CLOSELY.
--- NOTE | 2019-04-06 11:00 | NUR ---
PT CARE ASSUMED APPROXIMATELY 0700. PT ASSESSMENT CHARTED. PT MEDICATIONS CHARTED. PT DENIES PAIN. SPOUSE IS AT THE BEDSIDE. PT READY FOR DISCHARGE.
[2019-04-06 12:10] VITALS: BP 132/63
--- NOTE | 2019-04-06 12:48 | NUR ---
Son Papo here this am. Rupinder ltac brochure provided and encouraged him to review with pt and tour with his brother Maksim. Rupinder hurdellen will be here this afternoon for bedside visit, clinical update and will f/u with her sons for questions. Therapy is seeing pt but she is very weak. Care team updated.
[2019-04-06 16:17] VITALS: BP 123/61
--- NOTE | 2019-04-06 18:25 | NUR ---
INCONTINENT OF THREE LIQUID STOOLS THIS 12-HOUR SHIFT.
[2019-04-06 19:19] VITALS: BP 134/59
--- NOTE | 2019-04-07 03:17 | NUR ---
ASSUMED CARE AT 1900. PT ALERT AND ORIENTED X2. VITALS STABLE WITH HR BEING ELEVATED RATE 10-120. PT ON METOPROLOL . NGTUBE FEEDING IN PLACE. Q2 TURNS MAINTAINED. BARRIER CREAM TO THE BUTTOCK EXCORIATION. ORAL CARE DONE. PT HAD A LOT OF CHUNKY SPUTUM LIKE IN HIS MOUTH. BG Q6, NO COVERAGE INDICATED BOTH TIMES. IT ON HALF NS AT 25CC/HR. WILL CONTINUE WITH CURRENT POC.
[2019-04-07 07:10] VITALS: BP 120/71
--- NOTE | 2019-04-07 08:09 | NUR ---
report received from JERRY Anderson. pt assessed with Justin at 0730, incontinent of stool. cj-care given, barrier cream applied, pt c/o pain and itching in her buttocks. rectal tube inserted with JERRY Light, at 0800. placement confirmed by poop inside tube. will monitor
[2019-04-07 11:00] LABS: ABSOLUTE NEUTROPHILS 5.5 thou/uL (1.4-8.2); BASOPHILS 0.8 % (0.0-2.0); EOSINOPHILS 1.4 % (0.0-3.0); HEMATOCRIT 23.2 % (37.0-47.0); HEMOGLOBIN 7.5 gm/dL (12.0-15.0); LYMPHOCYTES 9.8 % (24.0-44.0); MCH 28.4 pg (26.0-34.0); MCHC 32.5 g/dL (28.0-37.0); MCV 87.4 fL (80.0-100.0); MONOCYTES 8.5 % (1.0-8.0); PLATELET COUNT 235 thou/uL (150-400); POLYS 79.5 % (36.0-66.0); RBC 2.65 mil/uL (4.20-5.00); RDW 15.6 % (10.5-14.5); WBC 6.9 thou/uL (4.0-11.0)
[2019-04-07 11:10] VITALS: BP 111/54
[2019-04-07 15:46] VITALS: BP 127/69
[2019-04-07 18:40] VITALS: BP 96/44
[2019-04-07 19:25] VITALS: BP 97/37
[2019-04-07 19:29] LABS: CALCIUM 7.5 mg/dL (8.5-10.1); CREATININE 0.6 mg/dL (0.6-1.0); POTASSIUM 3.4 mmol/L (3.5-5.1)
[2019-04-07 19:33] LABS: MAGNESIUM 0.9 mg/dL (1.8-2.4)
--- NOTE | 2019-04-07 19:43 | NUR ---
PT STARTED HAVE 5 AND 6 BEAT RUNS OF VT AROUND 1835, HR WENT UP HIGH 170'S. DR CASSIDY CALLED, "START AMIODARONE GTT WITH BOLUS, DRAW BMP AND MAG AND REPLACE PER PROTOCOL." PT'S MAG CAME BACK 0.9, BEING REPLACED PER IV PROTOCOL.
[2019-04-07 20:34] VITALS: BP 108/49
[2019-04-08 00:55] VITALS: BP 128/52
[2019-04-08 05:00] VITALS: BP 112/49
--- NOTE | 2019-04-08 06:53 | NUR ---
ASSUMED PT CARE AT 1900. VSS. PT A&0 TO PERSON & SITUATION. ELYTES REPLACED TO BE RECHECKED THIS AM. BARRIER CREAM ON BOTTOM A ND MISAEL AREA. PT STARTED ON AMIO BOLUS AND AMIO DRIP LAST NOC BECAUSE HR WAS IN THE 170S AND SUSTAINING. PT'S HR IS STABLE NOW. PAIN MANAGED WITH RX MED IN APR. ASSESSMENTS ARE CHARTED. WILL CONTINUE TO CLOSELY MONITOR.
[2019-04-08 07:32] VITALS: BP 112/50
[2019-04-08 11:09] VITALS: BP 118/46
[2019-04-08 15:47] VITALS: BP 131/61
--- NOTE | 2019-04-08 17:54 | NUR ---
ASSUMED CARE 0700. PT RECOGNIZED PRIMARY NURSE. ALERT TO SELF, PLACE, AND SITUATION. DENIES SOB, DENIES CHEST PAIN, PATIENT MOANS WITH PAIN WITH TURNS. BARRIER CREAM TO BUTTOCKS AND ANTIFUNGLE MISAEL. 650 FROM BROOKS AND FECAL MANAGAMENT TUBE IN PLACE WITH LOOSE STOOL. R NARE NG TUBE AT #69 WITH FEEDING RATE AT 60. NO RESIDUAL. FLUSHED WITH WATER PER ORDER. FLUIDS AND AMLODIPINE RUNNING IN PICC TO RIGHT JUGULAR. MAG TREATED PER PROTOCAL. EDEMA IN RIGHT ARM AND LOW EXTREMITEIS. HAS PRAVO BOOTS ON. ISO FOR CDIFF. 2L NASAL CANNULA. SOFT TOUCH CALL LIGHT IN REACH. HOB ELEVATED TO 30 DEGREES. FALL PRECAUTIONS IN PLACE STAFF TO ANTICIPATE NEEDS.
[2019-04-08 19:26] VITALS: BP 124/51
[2019-04-09] VITALS (19 sets, daily range): BP systolic 113–174; BP diastolic 48–73
--- NOTE | 2019-04-09 04:41 | NUR ---
ASSESSMENT DOCUMENTED.PT BEEN RESTING IN NO ACUTE DISTRESS.A/O.SLEEPING MOST OF THE TIME BUT EASY TO AROUSE.CONT TO HAVE LIQUID STOOLS,FECAL MANAGEMENT IN PLACE.ISOLATION FOR C-DIFF MAINTAINED.TUBE FEEDING VIA NG TUBE.CECILIA HARRINGTON.TURNED AND REPOSITIONED Q2H.ON AMIODARONE DRIP PER PROTOCOL.SR ON MONITOR.NO CONCERNS VOICED AT THIS TIME.WILL CONT TO MONITOR PER POC.
[2019-04-09 10:51] LABS: CALCIUM 7.6 mg/dL (8.5-10.1); CREATININE 0.7 mg/dL (0.6-1.0); POTASSIUM 4.7 mmol/L (3.5-5.1)
--- NOTE | 2019-04-09 11:26 | NUR ---
WOUND CARE F/U; THE PATIENTS WOUNDS FROM ADMISSION ARE RESOLVED. NO NEED TO FOLLOW THIS PATIENT. CONTINUE ALL INTERVENTIONS. DISCUSSED WITH STAFF
[2019-04-09 13:42] LABS: BE(vivo) -0.7 mmol/L (-2 to +3); HCO3 24.2 mmol/L (22.0-26.0); PCO2 40.8 mmHg (35.0-45.0); PO2 70.3 mmHg (80.0-100.0); pH 7.391 (7.360-7.450)
--- NOTE | 2019-04-09 13:46 | NUR ---
RAPID RESPONSE CALLED ON PATIENT AT 1300. DECREASED O2 SATS. SEE FLOWSHEET
[2019-04-09 14:09] LABS: BASOPHILS 0.9 % (0.0-2.0); EOSINOPHILS 0.5 % (0.0-3.0); HEMOGLOBIN 7.6 gm/dL (12.0-15.0); LYMPHOCYTES 3.5 % (24.0-44.0); MCH 27.9 pg (26.0-34.0); MCHC 31.7 g/dL (28.0-37.0); MONOCYTES 4.8 % (1.0-8.0); POLYS 90.3 % (36.0-66.0); RBC 2.73 mil/uL (4.20-5.00); RDW 16.3 % (10.5-14.5); WBC 8.8 thou/uL (4.0-11.0)
[2019-04-09 14:21] LABS: PLATELET COUNT 338 thou/uL (150-400)
--- NOTE | 2019-04-09 15:13 | NUR ---
patient RAT team today. Dr Champion sp with son regarding event and plans of care. plan transfer to ICU. Updated promise and [facility]CO[facility].
[2019-04-09 15:42] LABS: BE(vivo) -0.7 mmol/L (-2 to +3); HCO3 24.3 mmol/L (22.0-26.0); PCO2 41.4 mmHg (35.0-45.0); PO2 299.5 mmHg (80.0-100.0); pH 7.386 (7.360-7.450); sO2 99.7 % (92.0-98.0)
--- NOTE | 2019-04-09 16:16 | NUR ---
PT TRANSFERED TO ROOM 239 ICU. PT ON 15LNRB, AMIODARONE GTT AND IVF. TELE AND APPLIED. BED LOW AND LOCKED, SIDE RAILS UPX3, CALL LIGHT IN REACH. BROOKS AND FECAL MAMAGEMENT SYSTEM IN PLACE. CALLED CONSULT TO DR. UMANA. WILL CONTINUE TO ASSESS.
--- NOTE | 2019-04-09 16:47 | NUR ---
FAXED CLINICAL UPDATE TO [facility] SPOKE WITH MULU IN ADM SHE RECEIVED UPDATE. DP TO FOLLOW.
--- NOTE | 2019-04-09 17:50 | NUR ---
ASSESS PT WITH DR. UMANA AND PT NOW OFF NRB AND ON NC AT 5L. WILL CONTINUE TO ASSESS.
[2019-04-09 18:36] LABS: URINE BILIRUBIN NEGATIVE (Negative); URINE BLOOD TRACE (Negative); URINE CLARITY SL CLOUDY; URINE COLOR YELLOW; URINE GLUCOSE-RANDOM* NEGATIVE (Negative); URINE KETONES NEGATIVE (Negative); URINE NITRITE-REFLEX NEGATIVE (Negative); URINE PROTEIN (DIPSTICK) 2+ (Negative); URINE SPECIFIC GRAVITY 1.025 (1.005-1.035); URINE UROBILINOGEN 0.2 E.U./dl (0.2-1.0)
[2019-04-09 18:37] LABS: URINE LEUKOCYTES-REFLEX 1+ (Negative)
[2019-04-09 18:44] LABS: BACTERIA-REFLEX >30 Many /HPF (None Seen); CASTS None Seen /LPF (None Seen); CRYSTALS None Seen /LPF (None Seen); SQUAMOUS 0-3 Few /LPF (0-3); URINE RBC 0-2 Rare /HPF (0-2); URINE WBC-REFLEX 0-5 Rare /HPF (0-5)
--- NOTE | 2019-04-09 18:46 | NUR ---
RAPID CALLED FOR THIS PATIENT APPROXIMATELY 1330. OS SATES 48%, nasal cannula was not on patient.PLACE NS ON 6L AND CALLED A RAPID, PT DIAPHORETIC, SATURATIONS IMPROVED TO 100% ON WITH FACEMASK THEN PLACED ON 4L NASAL CANULA ONCE STABLE. PHYSICAN NOTIFIED.PT TRANSFERED TO ICU. REPORTED OFF TO ICU NURSE.
[2019-04-10] VITALS (42 sets, daily range): BP systolic 102–171; BP diastolic 41–86
[2019-04-10 05:57] LABS: CALCIUM 8.1 mg/dL (8.5-10.1); CREATININE 0.6 mg/dL (0.6-1.0); POTASSIUM 4.6 mmol/L (3.5-5.1); TOTAL BILIRUBIN 0.5 mg/dL (<0.1-1.0); TOTAL PROTEIN 6.4 g/dL (6.4-8.2)
--- NOTE | 2019-04-10 05:57 | NUR ---
Pt care assumed 04/09 @ 1900. Pt initially difficult to arouse and lethargic. She has become increasingly interactive, following commands this morning, assisting to turn, and aware that she is at [facility]. Upon initial oral care found a hardened, large amount of sputum in oral airway. Once this was cleared and extensive oral care was done, pt seemed to be able to pulmonary toilet well with prompting. Lung sounds have gone from coarse/congested to fine crackles in BL bases, however pt still requires 6L NC to maintain adequate SPO2. Adequate UOP, + stool to FMS. Buttocks put open to air with fan on it, resolving some of the redness. Has remained in NSR w/ Amio gtt infusing at 0.5 mg/min. TF restarted at 2100. At midnight repositioning it was noted that pt had pulled NG tube out. Rachel POLICY WRITER SALES made aware and asked that GI be made aware this morning. Pt slowly progressing towards goals.
[2019-04-10 06:01] LABS: ABSOLUTE NEUTROPHILS 7.3 thou/uL (1.4-8.2); BASOPHILS 0.9 % (0.0-2.0); EOSINOPHILS 2.3 % (0.0-3.0); HEMATOCRIT 25.3 % (37.0-47.0); MCH 28.4 pg (26.0-34.0); MCHC 31.7 g/dL (28.0-37.0); MCV 89.7 fL (80.0-100.0); MONOCYTES 5.6 % (1.0-8.0); PLATELET COUNT 365 thou/uL (150-400); POLYS 83.2 % (36.0-66.0); RBC 2.82 mil/uL (4.20-5.00); WBC 8.7 thou/uL (4.0-11.0)
--- NOTE | 2019-04-10 07:19 | NUR ---
PATIENT TRANSFERRED TO ICU. DUE TO CHANGE IN STATUS NEED NEW OCCUPATIONAL THERAPY ORDERS WHEN/IF APPROPRIATE.
--- NOTE | 2019-04-10 08:11 | NUR ---
Pt TRANSFERRED TO ICU. WILL PLACE ON HOLD AND AWAIT NEW ORDERS RESUME
[2019-04-10 12:26] LABS: BE(vivo) -1.7 mmol/L (-2 to +3); HCO3 22.3 mmol/L (22.0-26.0); PCO2 34.3 mmHg (35.0-45.0); PO2 69.8 mmHg (80.0-100.0); sO2 94.6 % (92.0-98.0)
--- NOTE | 2019-04-10 18:30 | NUR ---
ALERT TO PERSON, PLACE, SR, 6L/NC WITH RESP EVEN AND UNLABORED, TAKING DEEP BREATHS/COUGH WHEN ASKED, TOLERATING PUREED, HONEY THICK LIQUIDS AND CRUSHED MEDS WITH APPLESAUCE OR YOGURT, NO COUGHING OR CHOKING. RESPONDED WELL TO LASIX WITH TOTAL 2,625CC URINE OUTPUT, FLEXISEAL PATENT DRAINING BROWN LOOSE STOOL. PT STATES, THIS IS THE FIRST TIME SHE HAS EATEN IN A LONG TIME AND NOT HAD HER STOMACH HURT. SON(S) PRESENT PROVIDING SUPPORT. PT PROGRESSING.
[2019-04-11] VITALS (24 sets, daily range): BP systolic 110–146; BP diastolic 47–76
[2019-04-11 06:59] LABS: CALCIUM 8.1 mg/dL (8.5-10.1); CREATININE 0.6 mg/dL (0.6-1.0); POTASSIUM 3.8 mmol/L (3.5-5.1)
--- NOTE | 2019-04-11 11:58 | NUR ---
WOUND CARE F/U ASSESSED SACRAL/BUTTOCKS AREA W/ DECORATOR INSPECTOR JOSE SEPULVEDA STOOL, FECAL MANAGEMENT SYSTEM IN PLACE, R BUTTOCKS AREA EXCORIATED, OPEN AREA 10.5CM X 2CM, DECORATOR INSPECTOR STATES PT WAS SCRATCHING AREA LAST PIEDAD, CHELSIE, NO S/S INFECTION, PHOTO TAKEN RECOMMENDATIONS CONT PROTECTIVE CREAM TO SACRAL AREA, IE ZGUARD, ANTIFUNGAL PRN MISAEL AREA, PRESSURE RELIEF, TURN AT LEAST Q2 HOURS, OFF LOADING DECORATOR INSPECTOR AWARE
--- NOTE | 2019-04-11 12:57 | NUR ---
Possible transfer out of ICU later today. Per GI, peg tube placement is being scheduled for tomorrow. Pt and her sons are aware and have talked with GI. Talon aguirre here and updated on poc. They will reeval post peg for possible transfer to LTAC Tuesday or Tuesday pending the pt's progress. Will follow.
--- NOTE | 2019-04-11 19:30 | NUR ---
WEAK COUGH WHEN TAKING CRUSHED PILLS WITH APPLESAUCE EVEN WHEN SITTING UP. NOTIFIED DR. LEDESMA. SHE SPOKE GIVING OPTION FOR PEG TUBE PLACEMENT. RN CALLED SON DISCUSSED RISKS/BENEFITS AND TELEPHONE CONSENT RECEIVED FOR PEG TUBE PLACEMENT IN AM. ALERT TO PERSON, SOMETIMES PLACE, MORE CONFUSING THIS EVENING. SR, DOWN TO 1L/NC, SOFT COUGH, URINE OUTPUT RESPONDED WELL TO LASIX. SLIGHTLY PROGRESSING.
[2019-04-12] VITALS (7 sets, daily range): BP systolic 121–142; BP diastolic 46–83
--- NOTE | 2019-04-12 02:00 | NUR ---
ASSUMED CARE OF PT AT 1900 YESTERDAY. PT TX'd TO STEP DOWN UNIT AT 0145, REPORT GIVEN TO AMY AT 0115. WHILE CARING FOR PT, NO CHANGES. PT TOLERATED TAKING PILLS IN APPLESAUCE. HAS BEEN NPO [place]INCE [place] FOR PEG TUBE PLACEMENT IN THE MORNING.
--- NOTE | 2019-04-12 09:47 | NUR ---
Pt care taken over at 0700. pt alert and oriented to person and place. pt denies any pain. Assessment completed. Pt NPO, AM meds on hold. Pt in contact isolation. Desnies any needs. Call light in reach, bed at lowest level with alarm on.
--- NOTE | 2019-04-12 11:21 | EKG ---
[facility] [place] [address] ELECTROCARDIOGRAM REPORT Name: BAILEY LEIVA Room #: 356-P ADM IN M.R.#: [id number] Admission: 03/22/19 Attend Phys: Jefe Viera MD Discharge: Date of : 33 Report #: [id number] THIS REPORT FOR: cc: Jojo Rod,Jojo Lagos,Richard Daniels MD ~ THIS REPORT FOR: //name// [facility] Test Date: 2019-04-02 Test Time: 10:30:05 Pat Name: BAILEY LEIVA Department: Room: 200 I Gender: F Landscape Designer: Elliott ELDER : 1935 Requested By: Imelda Akhtar Order Number: [id number] MD: Richard Huber Measurements Intervals [place] Rate: 119 P: 67 MA: 114 QRS: -69 QRSD: 97 T: 7 QT: 327 QTc: 461 Interpretive Statements Sinus tachycardia Left anterior fascicular block RBBB Compared to ECG 03/15/2019 22:01:23 Electronically Signed On 04-02-2019 13:01:18 CARD CLOTHIER by Richard Huber [email or web address] <ELECTRONICALLY SIGNED> By: Richard Huber MD 04/02/19 1301 1030 1030 Richard Huber MD /EPI
--- NOTE | 2019-04-12 11:22 | EKG ---
[facility] [place] [address] ELECTROCARDIOGRAM REPORT Name: BAILEY LEIVA Room #: 356-P ADM IN M.R.#: [id number] Admission: 03/22/19 Attend Phys: Jefe Viera MD Discharge: Date of : 33 Report #: [id number] THIS REPORT FOR: cc: Jojo Rod,Jojo Lagos,Richard Daniels MD ~ THIS REPORT FOR: //name// [facility] Test Date: 2019-04-09 Test Time: 16:09:23 Pat Name: BAILEY LEIVA Department: Room: [facility] Gender: F Crawler Tractor Operator: Yvette POTTS : 1935 Requested By: Juan Pablo Champion Order Number: [id number] MD: Richard Huber Measurements Intervals [place] Rate: 89 P: 26 MA: 187 QRS: -71 QRSD: 119 T: 22 QT: 411 QTc: 501 Interpretive Statements Sinus rhythm Incomplete RBBB and LAFB Baseline wander in lead(s) V2 Compared to ECG 04/05/2019 08:21:24 Incomplete right bundle-branch block now present Sinus tachycardia no longer present Ventricular premature complex(es) no longer present Electronically Signed On 04-09-2019 16:55:21 ANTISQUEAK CHALKER by Richard Huber [email or web address] <ELECTRONICALLY SIGNED> By: Richard Huber MD 04/09/19 1655 08 08 Richard Huber MD /EPI
--- NOTE | 2019-04-12 11:22 | EKG ---
[facility] [place] [address] ELECTROCARDIOGRAM REPORT Name: BAILEY LEIVA Room #: 356-P ADM IN M.R.#: [id number] Admission: 03/22/19 Attend Phys: Jefe Viera MD Discharge: Date of : 33 Report #: [id number] THIS REPORT FOR: cc: Jojo Rod,Jojo Lagos,Richard Daniels MD ~ THIS REPORT FOR: //name// [facility] Test Date: 2019-04-05 Test Time: 08:21:24 Pat Name: BAILEY LEIVA Department: Room: 200 I Gender: F Gardening Manager: TAY : 1935 Requested By: Lihca Hollingsworth Order Number: [id number] MD: Richard Huber Measurements Intervals [place] Rate: 121 P: 4 OR: 109 QRS: -71 QRSD: 115 T: 13 QT: 331 QTc: 470 Interpretive Statements Sinus tachycardia vs atrial tachycardia Ventricular premature complex RBBB and LAFB Compared to ECG 04/02/2019 10:30:05 Ventricular premature complex(es) now present Electronically Signed On 04-05-2019 11:41:[address] ENG[address]ERING TEACHER by Richard Huber [email or web address] <ELECTRONICALLY SIGNED> By: Richard Huber MD 04/05/19 1141 0 0 Richard Huber MD /EPI
--- NOTE | 2019-04-12 11:59 | NUR ---
1140 pt taken down for Peg tube placement.
--- NOTE | 2019-04-12 13:39 | NUR ---
ASKED DC SECOND SHIFT SUPERVISOR TO FAX CLINICAL UPDATES TO [facility] & NOTIFIED HIM PT TO GET PEG TUBE TODAY AND MAY BE READY FOR TRANSFER BACK ON FRI OR SAT PENDING MEDICAL STABILITY.
--- NOTE | 2019-04-12 14:39 | NUR ---
PEG TUBE FEEDING RECS: 1) When safe to feed via new PEG, recommend Osmolite 1.5 at starting rate of 20 ml/hr. *Chose non fiber formula to start to not worsen bowels given c diff. 2) Slowly advance by ~15 ml q 8-12 hrs as tolerated to Goal Rate 45 ml/hr. 3) Recommend 150 ml water flushes q 4 hrs, plus 30 ml before/after any meds to basic hydration needs. 4) If bolus regimen desired upon return to care center, pt will need 4.5 cartons per day. Bolus Option 1: 360 ml (1.5 cartons) at 3 bolus feeds/day Bolus Option 2: 240 ml (1 carton) at 3 feeds/day + 360 ml at 1 feed/day.
--- NOTE | 2019-04-12 15:35 | NUR ---
1430 PT BACK FROM PEGTUBE PLACEMENT. PT ALERT AND ORIENTED x4. DENIES PAIN. PEG TUBE CLAMPED, DRESSING ON PEGTUBE SITE DRY, CLEAN AND INTACT. WILL CONTINUE TO MONITOR.
[2019-04-13 03:55] VITALS: BP 102/47
[2019-04-13 05:44] LABS: CALCIUM 7.7 mg/dL (8.5-10.1); CREATININE 0.8 mg/dL (0.6-1.0)
[2019-04-13 07:43] VITALS: BP 121/58
--- NOTE | 2019-04-13 07:59 | NUR ---
PT MAKING SLOW PROGRESS TOWARDS GOALS. HAS DENIED ANY SOA WHILE AT REST. LUNGS DIMINISHED THROUGHOUT. NO COUGH NOTED. SEE CHARTING.
--- NOTE | 2019-04-13 09:23 | NUR ---
FAXED CLINICAL UPDATE TO [facility] RECEIVED CONFIRMATION AND LEFT MSG WITH MULU IN ADM. DP TO FOLLOW.
--- NOTE | 2019-04-13 10:12 | NUR ---
WOUND CARE F/U ASSESSED BUTTOCKS/SACRAL AREA W/ PROTECTIVE SIGNAL REPAIRER Paulina GEORGE BUTTOCKS AREA HEALING,NOS/ INFECTION, NO DRAINAGE, FECAL MANAGEMENT SYSTEM STILL IN PLACE, PT DENIES PAIN IN AREA RECOMMENDATIONS CONT OFF LOADING PRESSURE RELIEF, LOW AIR LOSS PUMP TO BED. TURN AT LEAST Q 2HOURS, ZGUARD TO SACRAL/BUTTOCKS AREA PROTECTIVE SIGNAL REPAIRER AWARE
[2019-04-13 11:39] VITALS: BP 132/67
--- NOTE | 2019-04-13 15:34 | NUR ---
TONY reviewed chart and spoke with nursing and attending physician. Pt is progressing towards goals for discharge. Discharge to [facility] is anticipated for tomorrow. Pt had peg tube placed yesterday. Tube feedings starting today. TONY updated [facility], who confirmed they are able to accept pt over the weekend for admission. [facility] weekend liaison will need to be contacted to arrange discharge. Pt will need ambulance transportation. TONY spoke with pt's son, Papo, via phone to provide update and notify of discharge plan. Papo is aware and in agreement with plan. TONY left voice message for Juanita at [facility] to notify of pt's discharge disposition. Ambulance form placed on pt's chart. Form will need to be faxed to [facility] and then call will need to placed to coordinate. TONY is available to assist as needed. [facility]-- [facility]--Liaison-Agnes: [phone]
[2019-04-13 15:36] VITALS: BP 136/62
--- NOTE | 2019-04-13 16:23 | NUR ---
FAXED CLINICAL UPDATE TO [facility] RECEIVED CONFIRMATION AND LEFT MSG WITH MULU IN ADM. THAT PT WILL NOT DC OVER WEEKEND. DP TO FOLLOW.
[2019-04-13 19:11] VITALS: BP 135/71
[2019-04-14 00:27] VITALS: BP 141/66
[2019-04-14 05:00] VITALS: BP 1398/67
[2019-04-14 07:42] VITALS: BP 129/53
--- NOTE | 2019-04-14 09:01 | NUR ---
PT MAKING SLOW PROGRESS TOWARDS GOALS. OSMOLYTE 1.5 MIKAELA TUBE FEEDING STARTED PER DAY RN AT RATE OF 20ML/HR. PT DENIED ANY ABDOMINAL PAIN OR NAUSEA THROUGHOUT THE NIGHT. THIS AM RESIDUAL WAS 20ML. RATE INCREASED TO 30ML/HR.
[2019-04-14 12:01] VITALS: BP 140/66
[2019-04-14] MEDS ORDERED: PEPCID20 MG PER TUBE (13:32)
[2019-04-14] MEDS ORDERED: LOPRESSOR50 PO (13:32)
[2019-04-14] MEDS ORDERED: ACETAMINOPHEN325 M1 PO (13:32)
[2019-04-14] MEDS ORDERED: ZOFRAN4 MG PER TUBE (13:32)
[2019-04-14] MEDS ORDERED: DEMADEX20 MG PO (13:32)
[2019-04-14] MEDS ORDERED: FIRVANQ50 MG/1 ML PO (13:32)
[2019-04-14] MEDS ORDERED: SPIRONOLACTONE25 M1 PER TUBE (13:32)
[2019-04-14] MEDS ORDERED: PACERONE 200 M200 M1 PER TUBE (13:32)
[2019-04-14] MEDS ORDERED: CARDIZEM30 MG PO (13:32)
--- NOTE | 2019-04-14 16:34 | NUR ---
ASSUMED PATIENT CARE AT 0700. A/0 X2. TOLERATED TF AT 40ML/HR. NO RESIDUAL NOTED. FMS IRRGATED WITH WATER. Q2H TURN. RIGHT IJ CENTER LINE DC'D. WILL DC TO [facility] AT 1700.
--- NOTE | 2019-04-15 08:51 | P ---
[facility] [place] [address] PROCEDURE REPORT Name: BAILEY LEIVA Room #: 356-[facility] IN M.R.#: [id number] Admission: 03/22/19 Attend Phys: Jefe Viera MD Discharge: 04/14/19 Date of : 33 Report #: [id number] THIS REPORT FOR: cc: Jojo Rod,Ruba De Leon DO ~ CC: Jefe Werner MD DATE OF SERVICE: 04/12/2019 PROCEDURE: Esophagogastroduodenoscopy with percutaneous endoscopic gastrotomy tube placement. She is a patient of Dr. Jojo Rod, Dr. Viera, Dr. Enrrique Miller and Dr. Rishabh Thomas. INDICATION FOR PROCEDURE: This patient has been unable to tolerate medications and food orally and is unable to keep herself hydrated with oral intake because of esophageal dysmotility and dysphagia. PEG tube is being inserted and hopefully some of these difficulties will be improved. She has C. diff infection and needs to take oral vancomycin, so far she has not been responding well to the oral vancomycin and may need to resort to a fecal transplant, so PEG tube is being placed to try to be sure that she is getting adequate nutrition and adequate medication on schedule. I discussed this procedure with the patient's sons and they agree that she needs this procedure done. The patient is currently on Zosyn. No further antibiotics were ordered. Anesthesia kindly provided sedation with endotracheal intubation for patient safety as she frequently has a lot of food and debris in her esophagus. Intubation prevent aspiration into the lungs. With the patient in the supine position with her head slightly elevated, the Olympus upper videoscope was introduced through the upper esophageal sphincter and advanced under direct visualization to the third portion of the duodenum. Findings are noted on withdrawal of the scope. The visualized portion of the third portion of the duodenum appears normal. The second portion of the duodenum is normal. The duodenal bulb is mildly erythematous, but almost completely normal. Pylorus, no mucosa. Antrum, there were some erosions in the [facility] [address] [place] [address] PROCEDURE REPORT Name: BAILEY LEIVA Room #: 356-P [facility] IN M.R.#: [id number] Admission: 03/22/19 Attend Phys: Jefe Viera MD Discharge: 04/14/19 Date of : 34 Report #: [id number] antrum and the distal body of the stomach and some of these may have been from a previously placed NG tube that was removed by the patient. There was no bleeding seen. The body of the stomach appeared normal as did the cardia and fundus. The scope was withdrawn to the esophagus. The Z-line is appropriately located, but there is a lot of inflammatory debris and erythema of the esophageal wall. The esophageal wall in the mid esophagus is very nodular and looks like a small islands of squamous cell tissue floating in a background of a darker red color. The most proximal esophagus appears normal. The scope is advanced down into the stomach again and an appropriate site on the anterior gastric and anterior abdominal wall is localized. The anterior abdominal wall was then sterilely prepped with Betadine and draped with a sterile drape. Then, 5 mL of 1% Xylocaine was used as a local anesthetic to anesthetize the site of the intended PEG tube placement. A 1 cm incision was then made with a scalpel and a trocar was introduced through this incision through the anterior abdominal wall and anterior gastric wall into the gastric lumen. Then, a guidewire was advanced through this trocar and grasped endoscopically with a snare and pulled up through the patient's mouth. A #20 pull PEG was tied onto this guidewire and lubricated and then pulled down through the patient's mouth, esophagus and out through her anterior stomach wall and anterior abdominal wall until there was mild resistance felt and external bumper was then placed on the external limb of the PEG. Then, the Olympus upper videoscope was reintroduced through the upper esophageal sphincter and advanced under direct visualization again down into the stomach where the PEG tube bumper is seen lying in appropriate position on the anterior abdominal wall. There is approximately 2 mL of blood loss noted and there was good hemostasis at the time that I visualizing it. The remainder of the internal stomach appears the same. The scope was withdrawn into the esophagus and there are no changes in the esophagus even after the bumper was pulled down through the esophagus. The scope was withdrawn. The patient went to the recovery area in stable condition after she was extubated in the room and she tolerated the procedure well. IMPRESSION: 1. Nodular esophagus from acid reflux, retained secretions and material in the esophagus were pushed down into the stomach with the scope. 2. A few erosions of the antrum and body of the stomach are noted. These may be partially from NG tube suction. 3. Normal duodenum. 4. Successful placement of a #20 PEG tube as above. RECOMMENDATIONS: As follows: I think she needs to be on Pepcid 20 mg p.o. b.i.d. per PEG It is okay to use the PEG for medications today, but I would not start tube feedings until tomorrow and only if bowel sounds are positive. We will consult the dietitian for recommendations regarding tube feedings for this patient. We will need to teach the family how to use and care for the PEG as well. Meanwhile, we will cleanse the PEG site with sterile Q-tips and sterile water daily for 7 days and apply a sterile dressing and then after that 7-day [facility] [address] [address] PROCEDURE REPORT Name: BAILEY LEIVA Room #: 356-P [facility] IN M.R.#: [id number] Admission: 03/22/19 Attend Phys: Jefe Viera MD Discharge: 04/14/19 Date of : 34 Report #: [id number] period we will have the PEG open to air and only cover it if the patient tends to pull on tubes. We will continue the Zosyn IV and the vancomycin per PEG now. Thank you very much once again for allowing me to participate in her care. <ELECTRONICALLY SIGNED> By: Ruba Hawthorne DO 04/15/19 0851 1401 194 Ruba Hawthorne DO /nt
== END 2019-04-14 18:57 | DRG 871 ==
LOC: ER 23:41 → EROBS 03-22 01:47 → ICU 03-22 01:47 → 2N 03-23 09:14 → ICU 03-23 09:43 → 2N 03-27 11:42 → ENTRNSPT 03-27 13:09 → DELTRNSPT 03-27 13:40 → ENTRNSPT 03-29 11:02 → 2N 04-02 16:22 → ICU 04-09 15:52 → 3W 04-12 01:25
PROVIDERS: Emergency Medicine; Hospitalist; Internal Medicine; Internal Medicine Cardiovascular Disease; Internal Medicine Gastroenterology; Internal Medicine Pulmonary Disease; Nurse Practitioner; Nurse Practitioner Adult Health; Nurse Practitioner Family; Pediatrics; Specialist; ADMIT Hospitalist
PROC: 02HV33Z Insertion of Infusion Device into Superior Vena Cava, Percutaneous Approach (ICD-10-PCS; principal; 2019-03-22)
PROC: 0D758ZZ Dilation of Esophagus, Via Natural or Artificial Opening Endoscopic (ICD-10-PCS; 2019-03-27)
PROC: 0DH63UZ Insertion of Feeding Device into Stomach, Percutaneous Approach (ICD-10-PCS; 2019-04-12)
DX: A41.9 Sepsis, unspecified organism (principal); R65.21 Severe sepsis with septic shock; E43 Unspecified severe protein-calorie malnutrition; G93.41 Metabolic encephalopathy; R57.1 Hypovolemic shock; N17.0 Acute kidney failure with tubular necrosis; J10.00 Influenza due to other identified influenza virus with unspecified type of pneumonia; J96.01 Acute respiratory failure with hypoxia; K51.00 Ulcerative (chronic) pancolitis without complications; K22.10 Ulcer of esophagus without bleeding; E87.2 Acidosis; E87.1 Hypo-osmolality and hyponatremia; I44.2 Atrioventricular block, complete; J44.0 Chronic obstructive pulmonary disease with (acute) lower respiratory infection; A04.71 Enterocolitis due to Clostridium difficile, recurrent; I13.0 Hypertensive heart and chronic kidney disease with heart failure and stage 1 through stage 4 chronic kidney disease, or unspecified chronic kidney disease; K21.9 Gastro-esophageal reflux disease without esophagitis; E78.00 Pure hypercholesterolemia, unspecified; Z96.611 Presence of right artificial shoulder joint; E11.22 Type 2 diabetes mellitus with diabetic chronic kidney disease; N18.9 Chronic kidney disease, unspecified; K44.9 Diaphragmatic hernia without obstruction or gangrene; E03.9 Hypothyroidism, unspecified; E78.5 Hyperlipidemia, unspecified; Z96.1 Presence of intraocular lens; E83.42 Hypomagnesemia; K57.30 Diverticulosis of large intestine without perforation or abscess without bleeding; D50.9 Iron deficiency anemia, unspecified; E87.6 Hypokalemia; I35.0 Nonrheumatic aortic (valve) stenosis; R21 Rash and other nonspecific skin eruption; R13.10 Dysphagia, unspecified; I27.20 Pulmonary hypertension, unspecified; R53.81 Other malaise; B36.9 Superficial mycosis, unspecified; K22.2 Esophageal obstruction; L89.899 Pressure ulcer of other site, unspecified stage; Z85.3 Personal history of malignant neoplasm of breast; Z90.12 Acquired absence of left breast and nipple; Z90.5 Acquired absence of kidney; Z90.49 Acquired absence of other specified parts of digestive tract; Z98.41 Cataract extraction status, right eye; Z98.42 Cataract extraction status, left eye; Z79.899 Other long term (current) drug therapy; Z79.82 Long term (current) use of aspirin; Z87.440 Personal history of urinary (tract) infections
CPT/HCPCS: 10078; 10081; 10203; 10797; 10879; 62110; 62900; 70005

== ENCOUNTER 2019-07-02 18:18 | Inpatient (IN) | payer OTHER ==
[~2019-07-02] VITALS: Ht 152.4 cm; Wt 73.8 kg
[~2019-07-02 18:18] MED LIST changes: +CARDIZEM30 MG PO; +DEMADEX20 MG PO; +FIRVANQ50 MG/1 ML PO; +LOPRESSOR50 PO; +PACERONE 200 M200 M1 PER TUBE; +PEPCID20 MG PER TUBE; +SPIRONOLACTONE25 M1 PER TUBE; +ZOFRAN4 MG PER TUBE
[2019-07-02 18:45] VITALS: BP 124/50
[2019-07-02 19:07] LABS: ABSOLUTE NEUTROPHILS 5.6 thou/uL (1.4-8.2); HEMOGLOBIN 6.8 gm/dL (12.0-15.0)
[2019-07-02 19:08] LABS: BASOPHILS 1.2 % (0.0-2.0); EOSINOPHILS 3.7 % (0.0-3.0); HEMATOCRIT 21.1 % (37.0-47.0); LYMPHOCYTES 13.4 % (24.0-44.0); MCH 27.7 pg (26.0-34.0); MCV 86.6 fL (80.0-100.0); MONOCYTES 5.6 % (1.0-8.0); PLATELET COUNT 356 thou/uL (150-400); POLYS 76.1 % (36.0-66.0); RBC 2.44 mil/uL (4.20-5.00); RDW 17.7 % (10.5-14.5); WBC 7.3 thou/uL (4.0-11.0)
[2019-07-02 19:18] LABS: CALCIUM 9.6 mg/dL (8.5-10.1); CREATININE 0.8 mg/dL (0.6-1.0); POTASSIUM 3.5 mmol/L (3.5-5.1)
[2019-07-02 19:25] LABS: ALBUMIN 2.4 g/dL (3.4-5.0); TOTAL BILIRUBIN 0.1 mg/dL (<0.1-1.0)
[2019-07-02 20:20] LABS: PROTIME 10.2 Seconds (9.3-11.4)
[2019-07-02 20:37] LABS: URINE BILIRUBIN NEGATIVE (Negative); URINE BLOOD 1+ (Negative); URINE CLARITY SL CLOUDY; URINE COLOR YELLOW; URINE GLUCOSE-RANDOM* NEGATIVE (Negative); URINE KETONES NEGATIVE (Negative); URINE NITRITE-REFLEX NEGATIVE (Negative); URINE PROTEIN (DIPSTICK) NEGATIVE (Negative); URINE SPECIFIC GRAVITY 1.015 (1.005-1.035); URINE UROBILINOGEN 0.2 E.U./dl (0.2-1.0)
[2019-07-02 20:38] LABS: URINE LEUKOCYTES-REFLEX 3+ (Negative)
[2019-07-02 20:55] LABS: BACTERIA-REFLEX >30 Many /HPF (None Seen); CALCIUM OXALATE 0-3 Few /LPF (None Seen); CASTS None Seen /LPF (None Seen); SQUAMOUS 0-3 Few /LPF (0-3); URINE RBC 3-10 Few /HPF (0-2)
[2019-07-02 22:40] VITALS: BP 115/59
[2019-07-02 22:55] VITALS: BP 109/54
[2019-07-02 23:00] VITALS: BP 114/48
--- NOTE | 2019-07-03 00:45 | NUR ---
PT WAS ADMITTED TO THE UNIT FROM THE ER AT APPROX 2300 IN A STABLE CONDITION.PT DENIED PAIN,N/V SO FAR.ADMISSION HX,EDUCATION AND ASSESSMENT COMPLETED.PT'S BOTTOM WAS RED AND RAW ON ADMIT,MISAEL CARE DONE,BARRIER CREAM APPLIED.TWO LITTLE SPOT ON HER BOTTOM NOTED.PT'S L HEEL,RED AND TENDER TO TOUCH.NEPRO TUBE FEEDING STARTED AT 50CC/HR.BG MOITORED ORDERED.PT ON 2L/NC.PT HGB 6.8,WAS SUPPOSED TO GET I UNIT OF BLOOD,STILL NOT AVAILABLE AT THIS TIME.PT'S VSS.PT RESTING ON HER BED AT THIS TIME.FALL AND ISOLATION (CDIFF) PRECAUTIONS MAINTAINED.CALL LIGHT WITHIN REACH.
[2019-07-03 03:57] VITALS: BP 104/40; BP 108/51
[2019-07-03 07:38] VITALS: BP 104/40
--- NOTE | 2019-07-03 08:00 | EKG ---
[facility] [place] [address] ELECTROCARDIOGRAM REPORT Name: BAILEY LEIVA Room #: [facility]- ADM IN M.R.#: [id number] Admission: 07/02/19 Attend Phys: Jefe Viera MD Discharge: Date of : 34 Report #: [id number] THIS REPORT FOR: cc: Jojo Rod,Jojo Granados,Gerardo Clarke MD [facility] THIS REPORT FOR: //name// [facility] ED Test Date: 2019-07-02 Test Time: 20:01:12 Pat Name: BAILEY LEIVA Department: Room: [facility] Gender: F Clinical Data Specialist[facility] 1935 Requested By: Norman Rowell Order Number: [id number] MD: Gerardo Renee Measurements Intervals Waka Rate: 97 P: 55 OH: 192 QRS: -65 QRSD: 124 T: 34 QT: 375 QTc: 477 Interpretive Statements Sinus rhythm RBBB and LAFB Baseline wander in lead(s) V5 Compared to ECG 04/09/2019 16:09:23 No significant change was found Electronically Signed On 07-03-2019 7:58:39 CDT by Gerardo Renee [email or web address] <ELECTRONICALLY SIGNED> By: Gerardo Renee MD, [facility] 07/03/19 0758 00 00 Gerardo Renee MD, [facility] /EPI
--- NOTE | 2019-07-03 09:58 | NUR ---
WOUND CONSULT; THIS IS A PATIENT KNOWN TO ME. THE BUTTOCKS HAS FRICTION SHEARING INJURY THAT IS OBVIOUS WITH CLEAR LINEAR SKIN TEARING. SCANT DRAINAGE. NO ERYTHEMA OR S/S OF INFECTION. RECOMMENDATIONS; 1-ZGUARD DAILY/PRN DISCUSSED WITH JERRY
[2019-07-03] MEDS ORDERED: BENADRYL ITCH28.3 GM TOP (10:45)
[2019-07-03] MEDS ORDERED: BIOTENE MOIST44.3 ML PO (10:46)
[2019-07-03] MEDS ORDERED: CHILDREN'S ZYRT10 M1 PER TUBE (10:50)
[2019-07-03] MEDS ORDERED: FAMOTIDINE 20 M20 MG PER TUBE (10:52)
[2019-07-03] MEDS ORDERED: SLEEP AID50 MG PER TUBE (10:52)
[2019-07-03] MEDS ORDERED: LOPRESSOR50 MG PER TUBE (10:53)
[2019-07-03] MEDS ORDERED: TRAMADOL 50 MG50 MG PER TUBE (10:54)
[2019-07-03] MEDS ORDERED: VENELEX OINTMEN60 GM TOP (11:01)
[2019-07-03] MEDS ORDERED: VITAMIN C500 M1 PER TUBE (11:02)
[2019-07-03 11:19] LABS: CREATININE 0.9 mg/dL (0.6-1.0); POTASSIUM 4.3 mmol/L (3.5-5.1)
--- NOTE | 2019-07-03 12:09 | NUR ---
FAXED CLINICAL UPDATE ALEENAG SPOKE WITH LANDON IN ADM SHE RECEIVED UPDATE. DP TO FOLLOW.
--- NOTE | 2019-07-03 12:17 | NUR ---
Received awake on bed. Due medications given as prescribed. On nothing per orem- pt informed and aware. On O2 at 2lpm via nasal cannula. With PEG tube in place- no bleeding and signs of infection noted; ongoing Tube feeding of Nepro at 50cc/hr, infusing well; H20 flushes every 4 hours- 150ml given as prescribed. To check for residual and notify MD if more than 60ml. On blood sugar monitoring every 6 hours- taken and recorded. With zeng in place- draining well, output measured and recorded accordingly. With ongoing blood transfusion of RBC, infusing well at L AC- approximately less 80cc during shift change- blood transfusion completed, vital signs taken and recorded; no adverse reactions noted; H&H ordered as per protocol. With excoriation on her buttocks- wound care consult done; photo taken- Z guard applied to affected area, pt turned regularly. Assisted in ADLs. Maintained on isolation due to C.diff, protocol observed. Pt seen and examined by Dr Viera, medication reconcilation done- files from skilled nursing received- medications for review by physician; as per Dr Viera to hold tube feeding until Gastro physician sees the pt. Pt seen by Dr Lang, to hold tube feeding post midnight; for EGD tomorrow AM, consent to be signed; may resume tube feeding for now. To continue monitoring patient.
--- NOTE | 2019-07-03 13:00 | NUR ---
PT ADMITTED RELATED TO GI BLEED AND ANEMIA. CM REVIEWED CHART AND SPOKE WITH CARE TEAM. CM CALLED PT'S SON SYDNEY THIS MORNING. 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 HE INDICATED THAT THEY HAD HOPED THAT PT WOULD BE ABLE TO EVENUALY RETURN HOME. HE STATED THAT THEY HAD A CHAIR LIFT INSTALLED THE END OF LAST WEEK. SYDNEY AND SON ISABELLA INDICATED THAT PT HAD BEEN IN AND OUT OF HOSPITAL, [facility] ([facility] AND [facility] SINCE THE BEGINING OF THIS YEAR. THEY EXPRESSED CONCERN ABOUT MANAGING PT'S ENTERAL TUBE FEEDING AND HER INCONTINANCE IF SHE WERE TO RETURN HOME. THEY INDICATED THAT THEY ANTICPATED PT RETURNING TO [facility] ONCE MEDICALLY STABLE. CLINICAL UPDATE SENT TO [facility]. 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 CM TO FOLLOW INDICATED WITH DC PLANNING.
[2019-07-03 15:19] LABS: HEMATOCRIT 25.6 % (37.0-47.0); HEMOGLOBIN 8.2 gm/dL (12.0-15.0); MCH 28.1 pg (26.0-34.0); MCHC 32.1 g/dL (28.0-37.0); MCV 87.5 fL (80.0-100.0); RBC 2.92 mil/uL (4.20-5.00); RDW 16.6 % (10.5-14.5); WBC 6.4 thou/uL (4.0-11.0)
[2019-07-03 17:00] VITALS: BP 119/48
[2019-07-03 20:00] VITALS: BP 101/49
--- NOTE | 2019-07-04 03:36 | NUR ---
PROGRESS PT ALERT AND ORIENTED X 3 A LITTLE FORGETFUL OF DATES AND TIME BUT ABLE TO ANSWER ALL ORIENTATION QUESTIONS APPROPRIATELY. FOLLOWS COMMANDS FOR TURNING DURING CARE. ABLE TO PERFORM OWN ORAL CARE PT IS VERY AWARE OF HER STRICT NPO STATUS AND IS VERY CAREFUL OF WHAT GOES IN HER MOUTH. VSS. BOTH BUTTOCKS INNER THIGHS AND GENITAL AREA RED AND EXCORIATED SOME OPEN AREAS NOTED WITH FRESH BLEEDING FROM PT SCRATCHING. CLEANSED A FEW TIMES AND ZGARD AND BARRIER OINTMENT APPLIED WITH SOME EFFECT NOT SO ITCHY AND IRRITATED AFTER. TUBE FEEDING OF NEPHRO AT 50ML/HR INFUSED UNTIL NPO AT MIDNIGHT 150 CC H2O FLUSH GIVEN ORDERED, DRESSING AROUND PEG TUBE SITE CHANGED AREA IS C/D/I NO DRAINAGE NOTED, RESIDUAL CHECKED AT MIDNIGHT AND SHOWED 0 ML'S. REPOSITIONED SELF Q2 HOURS ON REQUEST FROM NURSE. NPO FOR EGD IN AM. BROOKS CATHER IN PLACE DRAINING MODERATE AMOUNT OF CLEAR YELLOW URINE. HAD A SMEAR OF BM. CONTINUE TO MONITOR. GIVEN
[2019-07-04 09:00] VITALS: BP 105/51
[2019-07-04 11:54] LABS: HEMATOCRIT 25.9 % (37.0-47.0); HEMOGLOBIN 8.4 gm/dL (12.0-15.0)
--- NOTE | 2019-07-04 15:27 | NUR ---
CARE TEAM INDICATED THAT PT WILL LIKELY BE MEDICALLY STABLE TO DISCHARGEBACK O [facility] TOMORROW. CM NOTIFIED LIAISON LANDON AND CLINICAL UPDATE PROVIDED. PT HAD EGD THIS DAY. CM TO FOLLOW INDICATED WITH DC PLANNING.
--- NOTE | 2019-07-04 15:48 | NUR ---
ASSUMED CARE OF PT AT 0700. PT IS A&OX2-3 AND FORGETFUL, VITAL SIGNS ARE STABLE. PT REPORTS ITCHING TO BACK AND BUTTOCKS, MANAGED WITH ORDERED BENADRYL. EGD IN AM, PT NPO PRIOR TO PROCEDURE. EXCORIATION TO BOTTOM, PT TURNED Q2H, LOW AIRLOSS MATTRESS IN PLACE, BARRIER CREAM APPLIED, AND PT FREQUENTLY PROVIDED WITH MISAEL-CARE. BROOKS CATHETER IN PLACE, DRAINING APPROPRIATELY. PEG TUBE IN PLACE, NO RESIDUAL NOTED, 150ML FLUSH QID, NEPRO RUNNING AT 50ML/HR. DENIE N/V, HOB ELEVATED. HEART MURMUR NOTED ON ASSESSMENT, HR REGULAR, LUNG SOUNDS CLEAR, BOWEL SOUNDS ACTIVE, ABDOMEN SOFT, BUT PT REPORTS SOME DISCOMFORT AROUND AREA OF PEG TUBE AND WITH MOVEMENT OF PEG TUBE. FALL PRECAUTIONS IN PLACE AND NURSING WILL CONTINUE TO MONITOR.
--- NOTE | 2019-07-04 16:25 | NUR ---
FAXED CLINICAL UPDATE TO [facility] RECEIVED CONFIRMATION AND LEFT MSG WITH LANDON IN ADM WILL F/U IN THE AM.
[2019-07-04 20:10] VITALS: BP 113/53
[2019-07-05 02:07] LABS: GLYCOHEMOGLOBIN (HGB A1C) 4.6 % (4.8-5.6)
[2019-07-05 03:29] VITALS: BP 106/42
--- NOTE | 2019-07-05 04:47 | NUR ---
RECIEVED CARE OF THIS PATIENT AT 1900. PATIENT ALERT AND ORIENTED X4 WITH SOME FORGETFULNESS AND CONFUSION. PATIENT NEEDING TO BE CLEANED EVERY 10 MINS OR SO. BOTTOM EXCORIATED D/T FREQUENT STOOLS AND SCRATCHING. C/O ITCHING A LOT. BENADRYL GIVEN AND HYDROXYZINE GIVEN. BOTH HELPED FOR A LITTLE WHILE. BROOKS PATENT YELLOW URINE. TUBE FEEDING OF NEPHRO AT 50ML/HR. TOLERATING WELL. HAD 0 RFESIDUAL AT 2100 AND MN. REMAINS IN ISO FOR C-DIFF. AT 0120 RECTAL TUBE PLACED. ACCUCHECK WAS 116 AT MN. DENIES PAIN. SLEPT OFF AND ON THIS SHIFT.
--- NOTE | 2019-07-05 05:08 | NUR ---
RECIEVED CARE OF THIS PATIENT AT 1900. PATIENT ALERT AND ORIENTED TO SELF. WAS MESSING WITH THE CALL LIGHT AND RANG OUT SOME, WHEN WENT TO ASK IF HE NEEDED ANYTHING HE WOULD SAY NO. MOVED THE CALL LIGHT BUT LEFT IT IN REACH. IV IN RFA WITH FLUIDS INFUSING. HAS NOT TRIED TO GET OUT OF BED THIS SHIFT. DENIES PAIN. SLEPT MOST OF THE NIGHT.
[2019-07-05 07:19] VITALS: BP 99/39
[2019-07-05 08:06] VITALS: BP 114/41
[2019-07-05 08:10] VITALS: BP 110/42
--- NOTE | 2019-07-05 09:35 | NUR ---
ASSUMED CARE AT 0700. PT ALERT AND ORIENTED AT TIMES. HAS SOME FORGETFULNESS. VSSA/RA. BP A LITTLE LOW THIS MORNING. WILL MONITOR. NO COMPLAINTS AT THIS TIME. NO PAIN. BROOKS DRAINING WELL. RECTAL TUBE IN PLACE APPEARS TO BE DRAINING. TOLERATING FULL FEEDS VIA PEG TUBE. PIV WITHOUT COMPLICATIONS. WILL CONTINUE POC AND MONITOR
[2019-07-05 10:44] LABS: HEMATOCRIT 25.8 % (37.0-47.0); HEMOGLOBIN 8.3 gm/dL (12.0-15.0)
--- NOTE | 2019-07-05 13:15 | NUR ---
WOUND CARE F/U; THE SACRAL/BUTTOCKS AREAS WERE REASSESSED TODAY. OVERALL MUCH IMPROVED TODAY. FRAGIALLY HEALED AREAS. NO S/S OF INFECTION. PATIENT D/C POSSIBLE TODAY. RECOMMENDATIONS; CONTINUE CURRENT TREATMENT WITH ZGUARD AND OFFLOADING. DISCUSSED WITH JERRY
--- NOTE | 2019-07-05 16:07 | PATH ---
[facility] [address] [place] [address] PATHOLOGY RPT PROCEDURE Name: BAILEY MENDOSA Room #: 451-P [facility] IN M.R.#: [id number] Admission: 07/02/19 Date of : 34 Discharge: Report #: [id number] Path Case #: [id number] [facility] Accession Number: [id number] . 01 Material submitted: . esophagus - BIOPSY OF ESOPHAGITIS . 01 Clinical history: . Coffee-ground emesis . 02 Diagnosis: Gastric fundic-type mucosa, esophagitis, endoscopic biopsy: - Specialized columnar epithelium with intestinal metaplasia, consistent with Ace's metaplasia. - Marked acute inflammation associated with granulation tissue in the background. - No definite dysplasia identified. LBQ 07/05/2019 1139 Local . 02 Comment: The above diagnosis of Ace's esophagus is made due to presence of intestinal metaplasia and with the assumption that the biopsies were obtained from the columnar mucosa in the distal esophagus located at least 1 cm proximal to the top of the gastric folds as per the 2016 ACG guidelines. . In addition to the Ace's mucosa there is marked acute inflammation present within the background. This limits interpretation/ assessment of dysplasia although no definite dysplasia is identified. Please correlate clinically and consider re-biopsy for assessment of dysplasia once the acute inflammation subsides. (IUV/db; 07/05/2019) . . . 02 Electronically signed: . Shantel Ford MD, Pathologist NPI- [id number] . 01 Gross description: . The specimen is received in formalin, labeled "Bailey Mendosa, biopsy of esophagitis". Received is a segment of pale ortiz soft tissue measuring 0.3 cm in maximum dimensions. The specimen is submitted entirely in cassette A1. ([facility]; 07/04/2019) QAC/QAC 07/04/2019 1344 Local . [address] [address] PATHOLOGY RPT PROCEDURE Name: BAILEY MENDOSA Room #: 451-P [facility] IN .R.#: [id number] Admission: 07/02/19 Date of : 34 Discharge: Report #: [id number] Path Case #: [id number] Pathologist provided ICD-10: K22.70 . 02 CPT . 743540 Specimen Comment: A courtesy copy of this report has been sent to [phone] Specimen Comment: Report sent to Performed at: 01 [facility] Patsy Zambrano [address] [place] [address] [address], [place], [place] [id number] MD Jose Thorne MD Phone: [phone] Performed at: [address] [id number] MD Shantel Ford MD Phone: [phone]
--- NOTE | 2019-07-05 16:11 | NUR ---
CARE TEAM INDICATED THAT PT IS HAVING ISSUE WITH INCREASED STOOLING. RECTAL TUBE WAS PLACED. CARE TEAM INDICATED PT ISN'T YET MEDICALLY STABLE TO RETURN TO [facility]. CM NOTIFIED LIASION. CM TO FOLLOW INDICATED WITH DC PLANNING.
[2019-07-05 16:20] VITALS: BP 105/47
[2019-07-05 19:05] VITALS: BP 114/47
--- NOTE | 2019-07-06 03:04 | NUR ---
RECEIVED CARE OF THIS PATIENT AT 1900. PATIENT ALERT AND ORIENTED X4 WITH PERIODS OF FORGETFULNESS AND CONFUSION. BOTTOM STILL VERY EXCORIATED. RECAL TUBE STILL IN PLACE. BROOKS PATENT YELLOW URINE. ACCUCHECK WAS 123. NO INSULIN NEEDED. TUBE FEEDING OF NEPRO AT 50ML/HR INFUSING. PATIENT CONTINUES TO C/O OF SEVERE ITCHING. BENADRYL AND HYDROXYZINE GIVEN. SLEPT VERY LITTLE THIS SHIFT.
[2019-07-06 07:57] LABS: HEMATOCRIT 26.2 % (37.0-47.0); HEMOGLOBIN 8.4 gm/dL (12.0-15.0); MCH 28.2 pg (26.0-34.0); MCHC 32.2 g/dL (28.0-37.0); MCV 87.6 fL (80.0-100.0); RBC 2.99 mil/uL (4.20-5.00); RDW 16.8 % (10.5-14.5); WBC 4.8 thou/uL (4.0-11.0)
[2019-07-06 08:35] VITALS: BP 110/37
[2019-07-06 10:13] LABS: CALCIUM 8.7 mg/dL (8.5-10.1); CREATININE 1.1 mg/dL (0.6-1.0); POTASSIUM 3.2 mmol/L (3.5-5.1)
--- NOTE | 2019-07-06 13:38 | NUR ---
CARE TEAM INDICATED PT IS PROGRESSING SLOWLY TOWARD GOAL OF DC. PT WITH RECTAL TUBE STILL IN PLACE. AWAITING RESULTS OF CDIFF TESTING. SHOULD CARE TEAM INDICATED THAT PT IS MEDICALLY STABLE TO DISCHARGE OVER THE WEEKEND CONTACT JEFFRY AT [facility] AT TO FACILITATE PT'S RETURN. FACILITY PHONE NUMBER IS FOR REPORT AND FAX FOR ORDERS IS . NOTIFY PT'S SON'S OF TIME OF DISCHARGE. CM TO FOLLOW INDICATED WITH DC PLANNING.
--- NOTE | 2019-07-06 16:22 | NUR ---
ASSUMED CARE AT 0700. PT ALERT AND ORIENTED. NO NEW COMPLAINTS AT THIS TIME. VSSA/RA. BROOKS AND RECTAL TUBE IN PLACE. LOOSE STOOL. ORDERS TO CHANGE TF, WILL MONITOR CHANGE. PEG TUB WITHOUT COMPLICATIONS. PIV IN PLACE. PRN MEDS GIVEN FOR PAIN AND ITCHING ORDERED. PT UP WITH PT TO CHAIR SOME TODAY. WILL CONTIUE TO MONITOR
[2019-07-06 17:43] VITALS: BP 100/35
[2019-07-06 19:13] VITALS: BP 94/31
[2019-07-06 21:00] VITALS: BP 110/42
--- NOTE | 2019-07-07 02:01 | NUR ---
PT CARE ASSUMED WITH PT IN BED WATCHING TV.PT IS A/O AND FORGETFUL .PT HAS A LEFT LIMB ALERT AND PT HAS A PEG TUBE IN PLACE WITH JEVITY AT 45/HR AHD Q4H FLUSH WITH 150ML OF WATER.PT IV ACCESS ON SL .PT HAS A BROOKS IN PLACE AND RECTAL TUBE FOR LOOSE STOOL.PT IS ACCUCHECK Q6H.PT C/O ITCHING AROUND MISAEL AREA AND WAS GIVEN BENADRYL.PT IS ON ISOLATION PRECAUTION FOR CDIFF.WILL CONTINUE TO MONITOR
[2019-07-07 09:11] VITALS: BP 117/52
[2019-07-07 12:58] LABS: URINE BILIRUBIN NEGATIVE (Negative); URINE BLOOD NEGATIVE (Negative); URINE CLARITY CLEAR; URINE COLOR YELLOW; URINE GLUCOSE-RANDOM* NEGATIVE (Negative); URINE KETONES NEGATIVE (Negative); URINE LEUKOCYTES-REFLEX 2+ (Negative); URINE NITRITE-REFLEX POSITIVE (Negative); URINE PROTEIN (DIPSTICK) NEGATIVE (Negative); URINE UROBILINOGEN 0.2 E.U./dl (0.2-1.0)
[2019-07-07 13:03] LABS: BACTERIA-REFLEX 1-9 Few /HPF (None Seen); CASTS None Seen /LPF (None Seen); CRYSTALS None Seen /LPF (None Seen); MUCUS 0-3 Light strn/LPF (None Seen); SQUAMOUS 0-3 Few /LPF (0-3)
[2019-07-07 13:04] LABS: URINE RBC None Seen /HPF (0-2)
[2019-07-07 17:26] VITALS: BP 102/47
[2019-07-07 19:52] VITALS: BP 112/42
[2019-07-08 05:51] VITALS: BP 103/49
[2019-07-08 06:54] LABS: ABSOLUTE NEUTROPHILS 2.5 thou/uL (1.4-8.2); BASOPHILS 1.4 % (0.0-2.0); EOSINOPHILS 9.8 % (0.0-3.0); HEMATOCRIT 26.5 % (37.0-47.0); HEMOGLOBIN 8.7 gm/dL (12.0-15.0); MCH 28.1 pg (26.0-34.0); MCHC 32.8 g/dL (28.0-37.0); MCV 85.8 fL (80.0-100.0); PLATELET COUNT 267 thou/uL (150-400); POLYS 66.8 % (36.0-66.0); RBC 3.09 mil/uL (4.20-5.00); RDW 16.5 % (10.5-14.5); WBC 3.8 thou/uL (4.0-11.0)
[2019-07-08 07:21] LABS: CALCIUM 7.6 mg/dL (8.5-10.1); CREATININE 1.3 mg/dL (0.6-1.0); MAGNESIUM 1.3 mg/dL (1.8-2.4); PHOSPHORUS 3.4 mg/dL (2.5-4.9); POTASSIUM 3.4 mmol/L (3.5-5.1)
[2019-07-08 07:59] VITALS: BP 98/38
--- NOTE | 2019-07-08 16:50 | NUR ---
Assumed pt care at 7am.Pt in bed most of the time this shift.Assessment completed.vss but low bp noted.Dr Sarmiento notified,she rounded on pt. Order noted.Pt c/o of constant body itching.Calamine lotion applied with relief. Rectal tube was found on the bed later this evening with some stool.Complete bed change and pericare done will attempt to replace it before shift change. Pt in bed sleeping at present.Will continue to monitor.
[2019-07-08 20:07] VITALS: BP 137/51
--- NOTE | 2019-07-09 05:23 | NUR ---
Assumed pt care at 1900. Pt's A/OX4,VSS.Pt persists to have diarrhea, rectal tube in place but leaking around water balloon inflated and effective. Pt's buttocks excoriated/red and sore to touch-moisture barrier applied PRN,rash on upper back/chest pt c/o itching calamine applied per EMAR with some effectiveness. TF infusing via PEG with no residual noted. Denies pain on assessment. Pelaez to DD with yellow urine. IVF infusing via RUE w/o problems. Fall precautions in place, calls approp approp.
[2019-07-09 08:01] VITALS: BP 124/50
[2019-07-09 08:16] LABS: HEMATOCRIT 23.8 % (37.0-47.0); HEMOGLOBIN 7.6 gm/dL (12.0-15.0); MCH 27.3 pg (26.0-34.0); MCHC 32.1 g/dL (28.0-37.0); MCV 85.1 fL (80.0-100.0); PLATELET COUNT 245 thou/uL (150-400); RBC 2.79 mil/uL (4.20-5.00); RDW 16.6 % (10.5-14.5); WBC 2.9 thou/uL (4.0-11.0)
[2019-07-09 09:03] LABS: CALCIUM 7.1 mg/dL (8.5-10.1); CREATININE 0.9 mg/dL (0.6-1.0); POTASSIUM 3.5 mmol/L (3.5-5.1)
[2019-07-09 10:36] LABS: ABSOLUTE NEUTROPHILS 1.9 thou/uL (1.4-8.2); ANISOCYTOSIS 1+
--- NOTE | 2019-07-09 11:24 | NUR ---
WOUND CARE F/U ASSESSED SACRAL/BUTTOCKS AREA W/ MACHINE III COREMAKER NATACHA, HEALING, MUCH IMPROVED, ONLY ONE SMALL AREA OPEN <.3CM X.2CMX .2CM, NO DRAINAGE, SOME REDDNESS REMAINS, NO S/S INFECTION, COOPERATIVE, ENCOURAGED TO CONT OFF LOADING, TURNING, RECTAL TUBE INTACT RECOMMENDATIONS CONT TX W/ ZGUARD, OFF LOADING, TURNING, LOW AIR PUMP MACHINE III COREMAKER AWARE
--- NOTE | 2019-07-09 14:15 | NUR ---
ASSUMED CARE AT 0700. PT ALERT AND ORIENTED. NO COMPLAINTS AT THIS TIME. VSSA/RA. BROOKS AND RECATAL TUBE IN PLACE. WILL SEND CDIFF SAMPLE. TOLERATING TUBE FEEDS. PIV INFUSING WITHOUT ISSUES. PRN MEDS GIVEN ORDERED. WILL CONTINUE TO MONITOR
[2019-07-09 15:29] VITALS: BP 99/40
[2019-07-09 19:43] VITALS: BP 115/41
--- NOTE | 2019-07-10 05:01 | NUR ---
Assumed pt care at 1900. Pt's A/OX4,VSS.Denied pain on assessment but later c/o BLE pain medicated per EMAR with relief reported. Pt is NPO with tube feeding infusing at 45ml/hr, no residual noted. Rectal tube in place, leaking a little at the beginning of shift readjusted and no further problems noted, buttocks with excoriation, Z-guard applied. Itching persists on upper back/chest Calamine shukri applied with relief reported. Pelaez to DD with yellow urine. IVF infusing via RUE w/o problems. Special contact isolation maintained-current sample negative for cdiff. Fall precautions in place, calls approp for help.
[2019-07-10 08:11] VITALS: BP 122/53
--- NOTE | 2019-07-10 10:09 | NUR ---
WOUND CARE F/U ASSESSED BUTTOCKS/SACRAL AREA W/ COLLEGE INTERN YAHAIRA, RECTAL TUBE IN PLACE BUT SOME LEAKAGE NOTED, WILL NEED TO BE REPLACE OR ADJUSTED, AREA STILL CHELSIE BUT IMPROVEMENT SEEN, NO S/S INFECTION, COOPERATIVE, LOW AIR LOSS PUMP REMAINS ON BED RECOMMENDATIONS; CONT ZGUARD AT LEAST BID AND PRN, REPLACE/ADJUST RECTAL TUBE, CONT LOW AIR LOSS PUMP TO BED, OFF LOADING, TURNING Q 2HOURS COLLEGE INTERN AWARE
[2019-07-10 10:41] LABS: HEMATOCRIT 26.5 % (37.0-47.0); HEMOGLOBIN 8.3 gm/dL (12.0-15.0); MCH 27.4 pg (26.0-34.0); MCHC 31.5 g/dL (28.0-37.0); MCV 87.1 fL (80.0-100.0); RBC 3.04 mil/uL (4.20-5.00); RDW 16.7 % (10.5-14.5); WBC 3.1 thou/uL (4.0-11.0)
[2019-07-10 11:03] LABS: ALBUMIN 2.4 g/dL (3.4-5.0); CALCIUM 7.2 mg/dL (8.5-10.1); CREATININE 0.7 mg/dL (0.6-1.0); MAGNESIUM 1.9 mg/dL (1.8-2.4); POTASSIUM 3.9 mmol/L (3.5-5.1); TOTAL BILIRUBIN 0.4 mg/dL (<0.1-1.0); TOTAL PROTEIN 6.4 g/dL (6.4-8.2)
--- NOTE | 2019-07-10 16:08 | NUR ---
FAXED CLINICAL UPDATE TO [facility] SPOKE WITH LANDON IN ADM SHE RECEIVED UPDATE. DP TO FOLLOW.
[2019-07-10 16:20] VITALS: BP 141/55
--- NOTE | 2019-07-10 20:19 | NUR ---
Assumed patient care at 0715. Vital signs have been stable. She continues with a urinary catheter and fecal management system. Output total from 0700 until 1999: 1200cc, output for same times from fecal management system is 500cc. Patient continues with Jevity 1.5 at 45mLs/hr per feeding tube. Placement checked, no residual noted. Flushed x's 3 with 150cc's of water during this shift. Pain to bilateral knees controlled with Diclofen Ointment as scheduled. Hydroxyzine given x's 2 prn for anxiety; medication helpful. Patient continues on C-Diff Precautions/Isolation even though lab results were Negative as of 1335 on 07/09/2019. This is due to patient's history of C-Diff. New Fecal Management placed at this time per noc shift RN and STRIP TANK TENDER due to leakage. Patient to possibly have a speech eval this week. Report given to on-coming RN.
[2019-07-10 20:29] VITALS: BP 147/61
--- NOTE | 2019-07-11 04:48 | NUR ---
Assumed pt care at 1900.A/OX4,VSS. Rectal tube reinserted at beiginning of shift w/o any difficulties,pt has small liquid output at this time. C/o pain to BLE Diclofenac/Tramadol given with relief reported. Pt persists to itch on back/upper chest, calamine applied with some relief reported. Redness on buttocks persists Zguard applied prn. Pelaez patent draining light yellow urine. Tube feeding w/o difficulties, no residual noted. IVF infusing via RUE. Fall precautions in place,calls approp.
[2019-07-11 05:18] LABS: HEMATOCRIT 23.1 % (37.0-47.0); HEMOGLOBIN 7.4 gm/dL (12.0-15.0); MCH 27.5 pg (26.0-34.0); RBC 2.69 mil/uL (4.20-5.00)
[2019-07-11 05:23] LABS: MCHC 31.9 g/dL (28.0-37.0); RDW 16.8 % (10.5-14.5); WBC 3.3 thou/uL (4.0-11.0)
[2019-07-11 05:33] LABS: CALCIUM 6.9 mg/dL (8.5-10.1); CREATININE 0.7 mg/dL (0.6-1.0); MAGNESIUM 1.6 mg/dL (1.8-2.4); POTASSIUM 3.9 mmol/L (3.5-5.1)
[2019-07-11 07:38] VITALS: BP 134/54
--- NOTE | 2019-07-11 15:24 | NUR ---
CARE TEAM INDICATED THAT PT IS PROGRESSING TOWARD GOAL OF DISHCARGE. CM NOTIFIED LAISION AT [facility] [place] THAT CARE TEAM INDICATED THAT PT WILL LIKELY BE READY TO RETURN TO FACILITY TUESDAY. CM TO FOLLOW INDICATED WITH DC PLANNING.
--- NOTE | 2019-07-11 16:35 | NUR ---
PT IS AOX4 WITH SOME FORGETFULNESS, VSS, REPORTS PAIN IN LOWER BACK AREA. PT RECEIVES PAIN ANALGESIC NEEDED. IV FLUIDS ARE RUNNING, IV LOCATED IN RUE. ZGUARD ON BOTTOM, PT REPORTS ITCHING, CALAMINE LOTION APPLIED TO BOTTOM & CHEST. FECAL TUBE AND FEEDING TUBE ARE PATENT. PT IS ABLE TO TURN IN BED WITH ASSISTANCE. FALL PRECAUTIONS IN PLACE, CALL LIGHT IN REACH. ENCOURAGED PT NOT TO SCRATCH HER SKIN. WILL CONTINUE TO MONITOR.
[2019-07-11 20:03] VITALS: BP 163/48
[2019-07-12 04:50] LABS: HEMATOCRIT 23.8 % (37.0-47.0); HEMOGLOBIN 7.6 gm/dL (12.0-15.0); MCH 27.5 pg (26.0-34.0); MCHC 31.8 g/dL (28.0-37.0); MCV 86.4 fL (80.0-100.0); RBC 2.76 mil/uL (4.20-5.00); RDW 17.3 % (10.5-14.5); WBC 3.8 thou/uL (4.0-11.0)
[2019-07-12 04:57] LABS: CALCIUM 7.6 mg/dL (8.5-10.1); CREATININE 0.7 mg/dL (0.6-1.0); MAGNESIUM 1.5 mg/dL (1.8-2.4); POTASSIUM 4.1 mmol/L (3.5-5.1)
--- NOTE | 2019-07-12 06:00 | NUR ---
Assumed pt care at 1900. Pt A/OX4. Temp 100.4 at beginning of shift medicated with Tylenol and effective 97.9. Denies pain on assessment. Peg tube infusing without problems, no residual noted. Pelaez patent to DD draining yellow urine. Rectal tube in place, readjusted as needed for leaking. Output has decreased. Wound picture taken on buttock. Bed bath completed this morning. Pt still itching on upper back,calamine applied as ordered. Fall precautions in place,calls as needed.
[2019-07-12 07:55] VITALS: BP 136/57
--- NOTE | 2019-07-12 14:02 | NUR ---
CARE TEAM INDICATD PT STILL RUNNING FEVERS BUT THAT SHE MAY STILL BE MEDICALLY STABLE FOR POSSIBLE DC BACK T [facility] TOMORROW. CM TO FOLLOW INDICATED WITH DC PLANNING.
[2019-07-12 16:38] VITALS: BP 131/51
--- NOTE | 2019-07-12 17:44 | NUR ---
Assumed pt care this am, alert and oriented x 4 with times of confusion. Pain is managed with medication, itching on the back has been noted and called out to the MD since current regiament is not working. Tube feeding done no issued with the peg tube. Fecal management and FC in place and patent. Q2 turns are done, fall precautions in place. POC followed, isolation in place. Knee pain is noted, managed with diclofenac cream.
[2019-07-12 20:04] VITALS: BP 153/63
[2019-07-13 04:27] LABS: HEMATOCRIT 22.6 % (37.0-47.0); HEMOGLOBIN 7.2 gm/dL (12.0-15.0); MCH 27.5 pg (26.0-34.0); MCV 85.9 fL (80.0-100.0); RBC 2.63 mil/uL (4.20-5.00); RDW 17.7 % (10.5-14.5); WBC 4.4 thou/uL (4.0-11.0)
[2019-07-13 04:39] LABS: CREATININE 0.8 mg/dL (0.6-1.0); MAGNESIUM 1.9 mg/dL (1.8-2.4); POTASSIUM 4.2 mmol/L (3.5-5.1)
--- NOTE | 2019-07-13 06:37 | NUR ---
PROGRESS PT A/O X4 A LITTLE FORGETFUL AND ANXIOUS AT TIMES. REPORTS PAIN TO BUTTOCKS FROM RASH SCRATCHES AND SCRATCHINGCALAMINE AND DIPHENHYDRAMINE CREAM APPLIED WITH SOME EFFECT. TUBE FEEDING INFUSING AT 45CC/HR NO RESIDUAL NOTED. MEDS GIVEN VIA PEG TUBE AND PEG FLUSHED X 2 WITH 150CC'S H2O. BROOKS INTACT DRAINING CLEAR YELLOW URINE. FECAL MANAGEMENT SYSTEM IN PLACE 500 CC'S OF STOOL IN BAG AT START OF SHIFT AND NO INCREASE IN VOLUME THIS AM STILL MEASURING AT 500 CC'S. TRAMADOL GIVEN X 1 FOR PAIN HELPED SOMEWHAT PT SLEPT FOR AWHILE AFTER. RASH TO TORSO BACK AND ARMS DISSIPATING NOT RED AND RAISED AREAS GONE. CONTINUE PLAN OF CARE.
--- NOTE | 2019-07-13 10:48 | NUR ---
WOUND CARE F/U ASSESSED SACRAL/BUTTOCKS AREA W/ REAL ESTATE OFFICER CRISTO, AREA LESS CHELSIE FROM ASSSESSMENT 3 DAYS AGO, HEALING, NO S/S INFECTION, PT COOPERATIVE, RECTAL TUBE REMAINS IN PLACE W/ NO LEAKAGE SEEN, LOW AIR LOSS PUMP REMAINS ON BED RECOMMENDATIONS CONT ZGUARD TO AREA, CONT OFF LOADING PRESSURE RELIEF, CONT LOW AIR LOSS PUMP REAL ESTATE OFFICER AWARE
[2019-07-13 14:29] VITALS: BP 132/57
[2019-07-13 15:32] LABS: % SATURATION 17 % (20-39); IRON 39 ug/dL (50-170); TIBC 228 ug/dL (250-450)
--- NOTE | 2019-07-13 16:04 | NUR ---
FECAL TUBE REMOVED. ANTIPATED THAT PT MAY BE MEDICALLY STABLE TO DC TO [facility] BEGINING OF NEXT WEEK. CM FOLLOWING INDICATED WITH DC PLANNING.
--- NOTE | 2019-07-13 16:55 | NUR ---
PT A&OX4. UP WITH ASSIST OF PT TODAY. IV INTACT IN R FA. PEG TUBE IN PLACE WITH NO RESIDUAL TODAY. TOLERATING TUBE FEEDS AND FLUSHES. PT C/O ITCHING TO CHEST AND BACK. BENADRYL AND CALAMINE OINTMENT AND CREAM BEING USED . FECAL MANAGEMENT INTACT. BROOKS CATH IN PLACE. WILL CONT POC.
[2019-07-13 20:40] VITALS: BP 127/53
--- NOTE | 2019-07-14 03:08 | NUR ---
patient aox4 makes needs known. pain controlled this shift. patient turned q 2 hours. patient c/o of itching anti itch cream applied as needed. patient in bed asleep at this time breathing regular and unlaboured.
[2019-07-14 03:20] VITALS: BP 119/49
[2019-07-14 05:11] LABS: MCH 27.7 pg (26.0-34.0); MCHC 31.8 g/dL (28.0-37.0); MCV 87.1 fL (80.0-100.0); RBC 2.53 mil/uL (4.20-5.00); RDW 18.4 % (10.5-14.5); WBC 4.5 thou/uL (4.0-11.0)
[2019-07-14 05:18] LABS: CALCIUM 8.3 mg/dL (8.5-10.1); CREATININE 0.7 mg/dL (0.6-1.0); MAGNESIUM 1.5 mg/dL (1.8-2.4); POTASSIUM 4.3 mmol/L (3.5-5.1)
[2019-07-14 07:07] VITALS: BP 110/54
--- NOTE | 2019-07-14 12:44 | NUR ---
Received awake on bed. Due medications given as prescribed, crushed and given through PEG tube. On nothing per orem- mouth care rendered. On room air. With PEG tube in place- dressing C/D/I; ongoing tube feeding of Jevity at 45ml/hr, H2o flushes of 150ml every 4 hours. On blood sugar monitoring every 6 hours- taken and recorded accordingly. With zeng in place- output measured and recorded accordingly. Incontinent of bowels- fecal management removed by night warehouse selector nurse as reported; pt checked frequently and changed as needed. With excoriation on her buttocks- Z guard applied as ordered; pt turned frequently- refuses to be turned to her left side, only on her back and to right side. With NS at 75cc/hr, infusing well at R upper arm- wrapped in coban; dressing C/D/I. Maintained on isolation due to Cdiff, on PO Vancomycin. Assisted in ADLs. Vital signs stable. Complained of itchiness and pain- due PRN medications given as prescribed. waitress nurse reported that when IV nurse was inserting the IV at R upper arm using ultrasound she found a clot, no orders made afterwards- Informed Dr Ferro this AM- ultrasound on bilateral arms ordered- done, results relayed to physician. With orders to discontinue IVF as well- saline locked. To continue monitoring patient.
[2019-07-14 14:48] VITALS: BP 128/43
[2019-07-14 20:03] VITALS: BP 127/51
--- NOTE | 2019-07-15 02:51 | NUR ---
PATIENT AOX3 CONFUSED AND FORGETFUL THIS SHIFT. ITCHING AND PAIN CONTROLLED THIS SHIFT.PATIENT HAD LOOSE STOOLS THIS SHIFT, PERICARE AND BARRIER CREAM APPLIED NEEDED. REDNESS NOTED ON PERIARRE.NO BLEEDING NOTED THIS SHIFT. FALL PRECAUTION IN PLACE. PATIENT IN BED ASLEEP AT THIS TIME BREATHING REGULAR AND UNLABOURED.
[2019-07-15 05:04] VITALS: BP 125/49
[2019-07-15 07:08] VITALS: BP 136/55
--- NOTE | 2019-07-15 11:02 | NUR ---
WOULD LIKE TO KEEP PATIENT ON CONTACT PRECAUTIONS D/T MULTIPLE LOOSE STOOLS.
[2019-07-15 12:19] LABS: HEMATOCRIT 25.2 % (37.0-47.0); HEMOGLOBIN 8.1 gm/dL (12.0-15.0); MCH 27.8 pg (26.0-34.0); MCV 86.7 fL (80.0-100.0); RBC 2.91 mil/uL (4.20-5.00); RDW 19.1 % (10.5-14.5); WBC 4.4 thou/uL (4.0-11.0)
[2019-07-15 12:31] LABS: CALCIUM 8.9 mg/dL (8.5-10.1); CREATININE 0.8 mg/dL (0.6-1.0); MAGNESIUM 1.4 mg/dL (1.8-2.4); POTASSIUM 5.2 mmol/L (3.5-5.1)
[2019-07-15 15:53] VITALS: BP 120/48
--- NOTE | 2019-07-15 19:25 | NUR ---
Assumed patient care at 0715. Vital signs stable, abdomen soft and non-tender,BS x's 4, LSCTA. Skin on upper anterior and posterior body is raised and causes pruritus. Calamine Lotion applied as scheduled with noted relief. Hydroxyzine given x's two during this shift for both pruritus and anxiety; effective. Z-Guard applied to buttocks without noted effectiveness. Patient has been having loose bowel movements every time pericare has been given (stools are thick, but loose). There is no strong odor with these bowel movements. Blood sugars were 100 at both noon and 1800. Jevity 1.5 continues at 45mLs/hr. IV in left forearm is Saline Locked. Loperamide given x's 1 for diarrhea; this was not effective. Report given to on-coming nurse.
[2019-07-15 19:37] VITALS: BP 122/43
--- NOTE | 2019-07-16 03:14 | NUR ---
PATIENT AOX3 CONFUSED AND FORGETFUL. PAIN CONTROLLED THIS SHIFT. ANTI ITCHING CREAM APPLIED. PATIENT PERIAREA IS EXCROTIATED PERICARE AND Z GUARD APPLIED AT THIS TIME. PATIENT HAD 1 SMALL BOWEL MOVEMENT THIS SHIFT. PATIENT ON ISOLATION FOR HX. C DIFF. PATIENT IN BED ASLEEP AT THIS TIME BREATHING REGULAR AND UNLABOURED.
[2019-07-16 05:15] VITALS: BP 132/46
[2019-07-16 05:43] LABS: HEMATOCRIT 22.5 % (37.0-47.0); HEMOGLOBIN 7.3 gm/dL (12.0-15.0); MCH 27.5 pg (26.0-34.0); MCHC 32.3 g/dL (28.0-37.0); MCV 85.2 fL (80.0-100.0); RBC 2.65 mil/uL (4.20-5.00); RDW 18.8 % (10.5-14.5); WBC 4.4 thou/uL (4.0-11.0)
[2019-07-16 06:00] LABS: CALCIUM 8.9 mg/dL (8.5-10.1); CREATININE 0.9 mg/dL (0.6-1.0); MAGNESIUM 1.4 mg/dL (1.8-2.4); POTASSIUM 4.5 mmol/L (3.5-5.1)
[2019-07-16 07:12] VITALS: BP 107/47
--- NOTE | 2019-07-16 11:03 | NUR ---
WOUND CARE F/U; TODAY THERE IS EVIDENCE OF SHEARING TO THE SACRUM. THE PATIENT IS INCONTINENT OF STOOL. NO S/S OF INFECTION ARE EVIDENT AT THIS TIME. RECOMENDATIONS; D/C ZGUARD AND CHANGE TO BARRIER CREAM BID. DISCUSSED WITH JERRY
[2019-07-16 14:05] VITALS: BP 103/40
--- NOTE | 2019-07-16 14:10 | NUR ---
FAXED CLINICAL UPDATE TO [facility] [place] SPOKE WITH LANDON IN ADM SHE RECEIVED UPDATE. DP TO FOLLOW.
--- NOTE | 2019-07-16 18:35 | NUR ---
Assumed patient care at 0715. Vital signs stable, LSCTA (diminished), abdomen soft and non-tender, BS x's 4. Patient complained of "nausea" later in am. Feeding stopped for a few hours as she had 35cc residual. Feeding started again after nausea ceased and there was no residual. Patient has been given a prn dose of Hydroxyzine for anxiety and pruritus, and, prn Acetaminophen for generalized pain "level eight" pain. Medication was effective. Patient continues on C-Diff Precautions with loose stools upon every position change. Wound Care Nurse put in orders to use Barrier Cream instead of Z-Guard to cj area and buttocks. Patient continues to have pain with each cj-area cleanse. Blood Clot in Right Basilic Vein is "Superficial" per Dr Ferro, therefore, no treatment is necessary at this time. Warm compresses can be used for comfort if needed. Will report to on-coming nurse.
[2019-07-16 19:07] VITALS: BP 127/45
--- NOTE | 2019-07-17 07:00 | NUR ---
Pt. rested quietly at intervals during the night when checked on during frequent rounds. She c/o nausea and Imelda SHEILA called and notified and new orders for prn zofran given (see cpoe). Zofran given with some relief of nausea. Tube feeding was checked for residual late pm and it was 250 mls. and tube feeding was held. No c/o abdominal pain. This am residual checked from g-tube and it was greater than 100 mls. Upon aspiration the contents was like a wine color. Tube feeding was held all shift as pt. c/o nausea. Dr. Montes graduation coach for Dr. Lang and was notified. He wants tube feeding held for now. Pt. buttocks still excortiated and barrier cream applied. She continues to ooze stool when cleaning pt. up.
--- NOTE | 2019-07-17 09:47 | NUR ---
Nutrition: Tube feeding presently on hold due to pt c/o nausea then high residual. RECommend: 1.consider start reglan. 2.Obtain new weight, no weight since 07/01 3.Change tube feed formula to Vital AF (semi elemental) at 55 mL/hr
--- NOTE | 2019-07-17 09:59 | NUR ---
Nutrition: REC obtain new weight as no weight since 07/01. CT abdomen/pelvis pending today due to 250 mL residual last noc/wine colored. If able to resume tube feeds, suggest change to Vital AF at 55 mL/hr (semi elemental/GI tolerance)
--- NOTE | 2019-07-17 13:55 | NUR ---
ON-GOING ASSESSMENT: CM REVIEWED CHART AND SPOKE WITH ATTENDING. PT IS STILL HAVING ALOT OF STOOLS. PT IS ALSO HAVING RESIDUAL FROM TUBE FEEDS AND WILL CONTINUE TO BE MONITORED. PT NEEDING A CT SCAN AND PENDING RESULTS COULD POSSIBLE DISCHARGE BACK TO [facility] [place] TOMORROW PER ATTENDING. CM UPDATED LANDON IN ADMISSION [facility] [place]. CM ALSO FAXED HER UPDATED CLINICAL ON PATIENT. CM ATTEMPTED TO REACH PATIENTS EULA GRIMES TO UPDATE BUT NO ANSWER AT THIS TIME.
[2019-07-17 14:33] LABS: HEMATOCRIT 24.1 % (37.0-47.0); HEMOGLOBIN 7.6 gm/dL (12.0-15.0); MCH 26.9 pg (26.0-34.0); MCHC 31.4 g/dL (28.0-37.0); MCV 85.8 fL (80.0-100.0); RBC 2.81 mil/uL (4.20-5.00); RDW 18.4 % (10.5-14.5); WBC 5.2 thou/uL (4.0-11.0)
[2019-07-17 16:05] VITALS: BP 105/40
[2019-07-17 18:25] VITALS: BP 129/48
[2019-07-17 19:48] VITALS: BP 119/48
--- NOTE | 2019-07-17 20:28 | NUR ---
Assumed patient at 0715. Vital signs stable, LSCTA, abdomen non-tender with distention. Patient continues to complain of bilateral knee pain which is controlled with Diclofenac Sodium. Skin to buttocks continues to be red, excoriated and painful. Barrier cream applied in thick layer as ordered. Patient complained of nausea, was given Zofran IV push with effectiveness. Patient started back on tube feedings early evening, as she no longer had residuals. She had a CAT Scan of abdomen and pelvis with contrast today. She is to have an EGD and Colonoscopy on morning. Loose stools continue upon movement. Urinary Catheter is patent. Report given to on-coming RN.
[2019-07-18 04:52] VITALS: BP 105/80
--- NOTE | 2019-07-18 04:58 | NUR ---
ASSUMED PT CARE AROUND 1930. AXOX3. FREQUENTLY CHECKED FOR NEEDS. NO S/S ACUTE DISTRESS NOTED OR REPORTED AT THIS TIME. WILL CONT TO MONITOR FOR ANY CHANGES IN CONDITION.
[2019-07-18 06:12] LABS: CALCIUM 8.7 mg/dL (8.5-10.1); CREATININE 1.1 mg/dL (0.6-1.0); MAGNESIUM 1.7 mg/dL (1.8-2.4); POTASSIUM 5.1 mmol/L (3.5-5.1)
[2019-07-18 07:52] VITALS: BP 106/42
[2019-07-18 08:13] LABS: HEMATOCRIT 24.4 % (37.0-47.0); HEMOGLOBIN 7.7 gm/dL (12.0-15.0); MCHC 31.8 g/dL (28.0-37.0); RBC 2.87 mil/uL (4.20-5.00); RDW 18.3 % (10.5-14.5); WBC 4.5 thou/uL (4.0-11.0)
--- NOTE | 2019-07-18 15:05 | NUR ---
CARE TEAM INDICATED THAT PT IS HAVING AN EGD AND FLEX SIG TOMORROW. STATING THAT PT MIGHT NEED A J TUBE. CM UPDATED LANDON [place] [facility] [place] INDICATED THAT THEY WOULD PREFER THAT PT HAVE POSSIBLE FECAL TRANSPLANT AN INPATIENT IF POSSIBLE SHE HAS LIMITED SKILLED DAYS AND THEY WOULD LIKELY HAVE TO RECONSIDER TAKING HAND IRONER UPON DC IF IT'S TO BE DONE AN OUTPATIENT. CM NOTIFIED HOSPITALIST. CM TO FOLLOW INDICATED WITH DC PLANNING.
[2019-07-18 16:00] VITALS: BP 108/37
--- NOTE | 2019-07-18 19:29 | NUR ---
Assumed pt care this am, isolation maintained. Tube feeding sustained and on going, water flushes os 150 cc every 4 hours completed. All medications given via peg tube, maintained NPO. Q2 turns done, barrier cream placed on the buttocks. Had 2 bm's that are brown and pasty for the whole shift. EGD and flex xsig scheduled for tomorrow, to stop tube feeding at midnight tonight, no bowel prep required as per GI. VS stable, blood sugar checks done. No residuals have been noted today. POC followed with no signs or verbalizations of distess have been noted. Endorsed to the night nurse.
[2019-07-18 19:56] VITALS: BP 123/44
--- NOTE | 2019-07-18 23:33 | NUR ---
RECEIVED PT IN BED AROUND 1929. AXOX3. CALLS FOR ASSISTANCE. AROUND 2129, PT C/O NAUSEA. GAVE A DOSE OF ZOFRAN AND CHECKED PEG RESIDUAL. NOTED 450CC COFFEE COLOR WITH WHITE SPECS. CALLED GI , PRODUCT SAFETY OFFICER FOR . PER , 1. STOP TF NOW INSTEAD OF MN. 2. DO NOT PUT RESIDUAL BACK. 3.GIVE PT ALL KEIKO MEDS UNLESS IT'S BLOOD THINNERS. CARRIED OUT.
[2019-07-19 04:49] VITALS: BP 125/46
[2019-07-19 05:58] LABS: HEMATOCRIT 25.1 % (37.0-47.0); HEMOGLOBIN 8.1 gm/dL (12.0-15.0); MCH 27.4 pg (26.0-34.0); MCHC 32.4 g/dL (28.0-37.0); MCV 84.4 fL (80.0-100.0); RBC 2.98 mil/uL (4.20-5.00); RDW 17.4 % (10.5-14.5); WBC 6.5 thou/uL (4.0-11.0)
[2019-07-19 06:25] LABS: CALCIUM 8.7 mg/dL (8.5-10.1); CREATININE 1.1 mg/dL (0.6-1.0); MAGNESIUM 1.6 mg/dL (1.8-2.4); POTASSIUM 5.1 mmol/L (3.5-5.1)
[2019-07-19 09:09] VITALS: BP 106/42
--- NOTE | 2019-07-19 15:21 | NUR ---
PT HAD FLEX SIG AND EGD THIS DAY. IT IS ANTIPCATED THAT PT WILL HAVE PEG CHANGED TO PEG J TOMORROW IN IR. CM [facility] THAT PT MAY BE READY FOR DC TOMORROW. CM TO FOLLOW INDICATED WITH DC PLANNING.
[2019-07-19 16:08] VITALS: BP 105/41
--- NOTE | 2019-07-19 19:46 | NUR ---
Assumed pt care this am, tube feeding stopped for the EGD and Felx sig. GJ tube scheduled for tomorrow to be donne with IR, tube feeding started at running at 20cc then to be stopped mindnight onwards. Pericare and barreind cream placed on bottom. Q2 turns done, pain managed with medications. POC followed, no signs or verbalizations of distress noted. Medications given residual at 60cc.
[2019-07-19 19:50] VITALS: BP 106/31
[2019-07-20] VITALS (7 sets, daily range): BP systolic 114–125; BP diastolic 39–77
--- NOTE | 2019-07-20 06:14 | NUR ---
ASSESSMENT; PT REMAIN ALERT AND ORIENT TIMES THREE. DENIES PAIN, SOB AND N/V. NPO SINCE MN, TUBE FEEDING OFF AT MN. NO RESIDUALS. CONTACT ISOLATION MAINTAINED. VSS, AFEBRILE. WILL CONTINUE TO MONITOR.
--- NOTE | 2019-07-20 08:24 | NUR ---
If TF to be changed to feeding through new Jejunostomy route, strongly REC change to NO/LOW FIBER formula. REC new formula of Vital AF 1.2 at goal rate 55 ml/hr to minimize fiber being fed directly into Jejunum OR alternatively a standard formula of Osmolite 1.5 could be used at goal rate 50 ml/hr.
[2019-07-20 08:26] LABS: HEMATOCRIT 23.6 % (37.0-47.0); HEMOGLOBIN 7.5 gm/dL (12.0-15.0); MCH 26.5 pg (26.0-34.0); MCHC 31.8 g/dL (28.0-37.0); MCV 83.3 fL (80.0-100.0); RBC 2.83 mil/uL (4.20-5.00); RDW 17.1 % (10.5-14.5); WBC 3.3 thou/uL (4.0-11.0)
--- NOTE | 2019-07-20 08:27 | P ---
[facility] [place] [address] PROCEDURE REPORT Name: BAILEY LEIVA Room #: 451-[facility] IN M.R.#: [id number] Admission: 07/02/19 Attend Phys: Jefe Viera MD Discharge: Date of : 34 Report #: [id number] THIS REPORT FOR: cc: Jojo Rod,Gurmeet Romero MD ~ CC: Jefe Rod DATE OF SERVICE: 07/19/2019 PROCEDURE PERFORMED: Upper endoscopy. HISTORY OF PRESENT ILLNESS: The patient is an 83-year-old female with a long history of gastroesophageal reflux disease as well as esophagitis. The patient underwent an EGD with PEG tube placement on 04/12/2019 due to decreased oral intake and malnutrition. She also unfortunately has a history of recurrent C. diff diarrhea. Recently, the patient has had higher residuals from her PEG tube as well as noted some blood within the aspirate. She is anemic. She has been on aggressive PPI therapy as well as Carafate in the past. Her most recent hemoglobin was 8.1 today. She remains in the 7-8 range historically. The patient also is being followed by Dr. Oz Miller for recurrent C. diff. Her most recent C. diff study was negative; however, she has been treated with vancomycin suspecting that this may be ongoing C. diff, even though it was a negative result. She has had minimal improvement in her diarrhea. Therefore, the plan is also to proceed with a flexible sigmoidoscopy today to rule out ongoing colitis. DESCRIPTION OF PROCEDURE: The risks and benefits of the procedure were explained to the patient's durable power of criminal attorney, those risks including but not limited to bleeding, perforation, and the risk of sedation. She understood these risks and gave informed consent. Sedation was given using propofol per anesthesia. Next, using a standard Olympus upper endoscope, the scope was placed in the patient's mouth and advanced under direct vision through the esophagus, stomach and into the second portion of the duodenum. The upper esophagus was normal. In the mid and distal esophagus; however, there was severe erosive esophagitis grade D. There was also a moderate amount of liquid just sitting in her esophagus. I aspirated this away, the liquid in her stomach was refluxing into the esophagus. Eventually, I was able to aspirate all the liquid away from her esophagus and her stomach. Overall, the gastric mucosa was normal. The PEG tube bumper was noted to be in good position in the mid body in the stomach. The pylorus was normal and patent. The duodenal bulb, first and second portion were all normal. The scope was then withdrawn and the procedure terminated. The patient tolerated the procedure well. [facility] [address] [place] [address] PROCEDURE REPORT Name: BAILEY LEIVA Room #: 451-[facility] IN M.R.#: [id number] Admission: 07/02/19 Attend Phys: Jefe Viera MD Discharge: Date of : 34 Report #: [id number] IMPRESSION: 1. Severe grade D erosive esophagitis. No active bleeding; however, recent blood noted in aspirate likely from esophagitis. 2. Hiatal hernia. 3. Otherwise, normal upper endoscopy. RECOMMENDATIONS: 1. I suspect the patient is refluxing tube feeds and has continued severe esophagitis because of this, therefore recommend replacing a G-tube with a PEG J-tube tomorrow in IR. 2. We will proceed with flexible sigmoidoscopy next day. Thank you for allowing me to participate in her care. <ELECTRONICALLY SIGNED> By: Gurmeet Daniel MD 07/20/19 0827 [id number] Gurmeet Daniel MD /nt
--- NOTE | 2019-07-20 08:27 | P ---
[facility] [place] [address] PROCEDURE REPORT Name: BAILEY LEIVA Room #: 451-[facility] IN M.R.#: [id number] Admission: 07/02/19 Attend Phys: Jefe Viera MD Discharge: Date of : 34 Report #: [id number] THIS REPORT FOR: cc: Jojo Rod,Gurmeet Romero MD ~ CC: Jefe Rod DATE OF SERVICE: 07/19/2019 PROCEDURE PERFORMED: Flexible sigmoidoscopy with biopsies. HISTORY OF PRESENT ILLNESS: The patient is an 83-year-old female with a history of recurrent Clostridium difficile diarrhea, most recently was having significant diarrhea; however, stool studies were negative for C. diff. She is followed by Dr. Jonas Miller and myself. She remains on vancomycin in case C. diff testing was false negative. She has had minimal improvement in her diarrhea. Plan therefore is to proceed with flexible sigmoidoscopy. DESCRIPTION OF PROCEDURE: The risks and benefits of the procedure were explained to the patient's durable power of shelving supervisor, those risks including but not limited to bleeding, perforation and the risk of sedation. He understood these risks and gave informed consent. Sedation was given using propofol per Anesthesia. Next, a digital rectal exam showed skin excoriation around the anus, but otherwise normal. Next, using a standard Olympus colonoscope, the scope was placed in the patient's anus and advanced under direct vision to approximately the transverse colon. This was a non-prepped flexible sigmoidoscopy. There was semi-liquid stool, brown throughout. Multiple washings and aspirations were performed. All areas of the transverse and descending, sigmoid colon and rectum mucosa were normal. There was no colitis noted. No evidence of pseudomembranes. Multiple diverticula were noted in the sigmoid colon. No evidence of inflammation or diverticulum. Random biopsies were obtained today to rule out the possibility of microscopic colitis. On retroflexion, small nonbleeding internal hemorrhoids were noted. The scope was then withdrawn and the procedure terminated. The patient tolerated the procedure well. IMPRESSION: 1. Sigmoid diverticulosis. 2. No evidence of colitis or pseudomembranes on exam today. 3. Small internal hemorrhoids. RECOMMENDATIONS: [address] [address] PROCEDURE REPORT Name: BAILEY LEIVA Room #: 451-[facility] IN ..#: [id number] Admission: 07/02/19 Attend Phys: Jefe Viera MD Discharge: Date of : 34 Report #: [id number] 1. Await biopsy results. 2. Discussed with Dr. Miller today the findings. We will start Imodium or possible Lomotil in the near future to decrease motility because of her ongoing diarrhea. Thank you for allowing me to participate in her care. <ELECTRONICALLY SIGNED> By: Gurmeet Daniel MD 07/20/19 0827 1347 [id number] Gurmeet Daniel, /gemma
[2019-07-20 09:05] LABS: CALCIUM 8.6 mg/dL (8.5-10.1); CREATININE 1.1 mg/dL (0.6-1.0); MAGNESIUM 1.7 mg/dL (1.8-2.4); POTASSIUM 5.1 mmol/L (3.5-5.1)
--- NOTE | 2019-07-20 10:30 | NUR ---
WOUND CARE F/U BUTTOCKS AREA LESS CHELSIE, HEALING, SCANT OPEN AREAS, NO S/S INFECTION, PER EDGE BEADER ONLY ONE STOOL YESTERDAY, LOW AIR LOSS PUMP REMAINS ON BED, COOPERATIVE, DENIES PAIN BUTTOCKS AREA, ENCOURAGED TO TURN FREQUENTLY RECOMMENDATIONS; CONT BARRIER CREAM AT LEAST BID AND AFTER Q BM, OFF LOADING PRESSURE RELIEF, CONT LOW AIR LOSS PUMP TO BED EDGE BEADER AWARE
--- NOTE | 2019-07-20 15:20 | NUR ---
PT HAD JTUBE DONE IN IR TODAY. IT IS ANTICPATED THAT PT MAY BE MEDICALLY STABLE TO DISCHARGE TO [facility] TOMORROW. SHOULD PT BE READY FOR DC CONTACT LANDON IN ADMISSIONS AT TO SET UP TRANSPORTATION. FAX ORDERS TO . CALL REPORT TO . CHART COPY ORDERED.
--- NOTE | 2019-07-20 19:54 | NUR ---
Assumed pt care this am, was on nPO went down for GJ tube placement, kept NPO (no tube feeding) til 8 pm as per IR isntructions. VS stable, POC followed with no signs or verbalizations of distrtes noted. endorsed to the night nurse tube feeding to resume 8 pm at 45 cc / hr Jevity 1.5
[2019-07-21 04:41] VITALS: BP 103/43
[2019-07-21 05:20] LABS: HEMATOCRIT 25.2 % (37.0-47.0); MCH 26.3 pg (26.0-34.0); MCHC 31.8 g/dL (28.0-37.0); MCV 82.6 fL (80.0-100.0); RBC 3.04 mil/uL (4.20-5.00); RDW 17.1 % (10.5-14.5); WBC 4.3 thou/uL (4.0-11.0)
[2019-07-21 05:52] LABS: CALCIUM 8.6 mg/dL (8.5-10.1); CREATININE 1.1 mg/dL (0.6-1.0); MAGNESIUM 1.7 mg/dL (1.8-2.4); POTASSIUM 4.7 mmol/L (3.5-5.1)
--- NOTE | 2019-07-21 07:46 | NUR ---
PROGRESS PT ALERT ORIENTED TO SELF, PLACE, STAFF. HAD J TUBE PLACED TODAY WITH ORDERS TO INITIATE TUBE FEEDINGS. JEVITY 1.5 AT 45CC/HR INITIATED BOWELS SOUNDS HYPOACTIVE TO ALMOST ABSENT. DENIES NAUSEA AND DENIES FLATUS. SKIN C/D/I WAS INCONTNENT IF BOWEL AND HAS AN BROOKS IN PLACE. PT REPORTED NAUSEA AFTER TUBE FEEDING RUNNING FOR A COUPLE HOURS SMALL AMOUNT OF CLEAR EMESIS NOTED, 30 CC RESIDUAL NOTED FROM J TUBE. TUBE FEEDING STOPPED ZOFRAN GIVEN AWAITING EFFECT. CONTINUE POC.
[2019-07-21 08:00] VITALS: BP 107/51
--- NOTE | 2019-07-21 11:08 | NUR ---
Received awake on bed. Due medications given as prescribed, crushed and given thru her J tube. On room air. Vital signs stable. On nothing per orem- pt informed and aware; mouth care rendered. Maintained on isolation due to history of Cdiff. Tube feeding on hold- night stocker nurse said patient vomited and felt nauseated this morning upon restarting of tube feeding- Dr Raya and Dr Sandhu informed; may restart tube feeding at slower rate, and increase by 10ml every 12 hours. On blood sugar monitoring- taken and recorded accordingly. With zeng in place- draining well; output measured and recorded accordingly. Incontinent of bowels; checked regularly and changed as needed. Assisted in ADLs. Turned regularly on her sides. With excoriation on her buttocks- on low airloss mattress; barrier cream applied to area. Complained of pain, due PRN pain meds given as prescribed. Assisted in ADLs. Pt seen by Dr Raya this morning- informed re: TF on hold and re: nausea episode last night- to inform GI- Dr Sandhu informed; may restart TF, starting rate and goal rate; no residual noted- physician informed. To continue monitoring patient.
[2019-07-21 15:00] VITALS: BP 105/43
[2019-07-21 19:25] VITALS: BP 106/50
--- NOTE | 2019-07-22 02:21 | NUR ---
PROGRESS PT A/O X3 TO 4 USES CALL LIGHT APPROPRIATELY. VSS. TUBE FEEDING INFUSING ORDERED INCREASED TO 20CC/HR AT 2300. TO BE INCREASED BY 100CC'S Q12H UNTIL TARGET RATE OF 45CC/HR IS REACHED AND TOLERATED. BED BATH GIVEN PT STILL SCRATCHING AND CAUSING BLEEDING CALAMINE APPLIED ALLOWED TO DRY WITH EFFECT PT STATED SHE FELT LESS ITCHY AND SLEPT FOR AWHILE AFTER. BROOKS INTACT DRAINING CLEAR YELLOW URINE. H20 FLUSH 250CC'S ORDERED. PT REPOSITIONED SELF IN BED INDEPENDENTLY AND WHEN REQUESTED. VSS, CONTINUE POC.
[2019-07-22 09:45] VITALS: BP 121/54
--- NOTE | 2019-07-22 15:22 | NUR ---
Assumed patient care at 0715. Vital signs stable. Patient has been complaining of nausea. She has been spitting out some yellowish phlegm into facial tissues. Received orders from Dr Raya for Reglan IV push; medication not effective.
[2019-07-22 20:18] VITALS: BP 121/50
--- NOTE | 2019-07-23 03:25 | NUR ---
RECIEVED CARE OF THIS PATIENT AT 1900. PATIENT ALERT AND ORIENTED X4 WITH SOME CONFUSION. G-J TUBE PATENT WITH JEVITY 1.5. PATIENT HAS 10CC RESIDUAL AT 2149. BROOKS PATENT. C/O ITHCING, MED GIVEN AND CREAM APPLIED. REMAINS IN ISO FOR C-DIFF. SLEPT OFF AND ON DURING NIGHT.
[2019-07-23 08:00] VITALS: BP 105/45
[2019-07-23 15:00] VITALS: BP 138/53
--- NOTE | 2019-07-23 18:39 | NUR ---
Assumed patient care at 0715. Vital signs stable, LSCTA (diminished), BS x's 4, abdomen is distended and tender to touch. She continues to have barrier cream applied to buttocks with no noticeable healing. Patient has had both nausea and vomiting throughout the day. KUB ordered per Dr Raya. Tube feedings have been stopped, medications have not. Patient has a bowel ileus, to have surgery within the next day or so. Nausea medication given IV push as often as possible; this only helps minimally.
[2019-07-23 19:51] VITALS: BP 138/54
--- NOTE | 2019-07-24 01:44 | NUR ---
PROGRESS PT ALERT BUT CONFUSED AT TIMES YELLING OUT ALL NIGHT, REPORTS ITCHING AND SCRATCHING UNTIL SHE BLEEDS, SKIN CARE CLEANSED AND CALAMINE AND BARRIER CREAM APPLIED. RASH HAS DISSIPATED BUT SKIN IS DRY AND TOP LAYER IS DARK AND SLOUGHING OFF. GASTRIC TUBE PLACED TO LIWS WITH A RETURN OF DARK GREEN BILE. BS ABSENT ABDOMEN DISTENDED AND SLIGHTLY TENDER. BROOKS INTACT DRAINING CLEAR YELLOW URINE. IV INFILTRATED RESTARTED IVF'S INITIATED D/T NPO STATUS. CONTINUE POC.
[2019-07-24 06:00] LABS: HEMATOCRIT 25.1 % (37.0-47.0); HEMOGLOBIN 8.3 gm/dL (12.0-15.0); MCH 26.4 pg (26.0-34.0); MCHC 33.2 g/dL (28.0-37.0); MCV 79.4 fL (80.0-100.0); RBC 3.16 mil/uL (4.20-5.00); RDW 16.8 % (10.5-14.5); WBC 6.5 thou/uL (4.0-11.0)
[2019-07-24 06:07] LABS: CALCIUM 8.1 mg/dL (8.5-10.1); CREATININE 1.2 mg/dL (0.6-1.0); POTASSIUM 4.8 mmol/L (3.5-5.1)
[2019-07-24 07:54] VITALS: BP 99/52
--- NOTE | 2019-07-24 10:35 | NUR ---
WOUND CARE F/U ASSESSED BUTTOCKS/SACRAL AREA W/ DATA COMPILER YAHAIRA, SOME HEALING PRESENT SACRAL AREA, SCRATCH VELIZ NOTED ON HIPS OUTER THIGHS, STILL C/O ITCHING, STAFF APPLYING CALAMINE LOTION ORDERED, NO RECENT STOOLS, SUGGEST CONT BARRIER CREAM BID AND PRN, SUGGEST MITTENS TO PREVENT SCRATCHING SKIN RECOMMENDATIONS CONT BARRIER CREAM BID AND PRN, CONT LOW AIR LOSS PUMP TO BED, ENCOURAGE OFF LOADING, TURNING, MITTENS IF OK W/ MD DATA COMPILER AWARE
--- NOTE | 2019-07-24 13:38 | NUR ---
FAXED CLINICAL UPDATE TO [facility] RECEIVED CONFIRMATION AND LEFT MSG WITH LANDON IN ADM THAT PT IS NOT DISCHARGING TODAY. DP TO FOLLOW.
[2019-07-24 15:12] VITALS: BP 105/54
--- NOTE | 2019-07-24 18:07 | PATH ---
[facility] [address] [place] [address] PATHOLOGY RPT PROCEDURE Name: BAILEY MENDOSA Room #: 451-P ADM IN M.R.#: [id number] Admission: 07/02/19 Date of : 33 Discharge: Report #: [id number] Path Case #: [id number] [facility] Accession Number: [id number] . 01 Material submitted: . colon - RANDOM BX . 01 Clinical history: . R/O microscopic colitis . 02 Diagnosis: Large intestinal mucosa, random colon, rule out microscopic colitis, endoscopic biopsy: - Mild active colitis. - Negative for dysplasia or malignancy. (IUV:pit 07/24/2019) QTP 07/24/2019 1708 Local . 02 Comment: Sections of the colonic mucosa designated "random colon, rule out microscopic colitis" show focal cryptitis, and a moderately cellular lamina propria composed predominantly of lymphocytes and plasma cells and occasional eosinophils. Surface ulceration is not identified. There are no crypt abscesses, granulomas or viral inclusions. The process affects all the fragments with a similar intensity. Given the description, the differential diagnosis includes mild infectious-type colitis, focal mild self-limited episode of colitis, early inflammatory bowel disease, acute diverticulitis, as well as medication/drug induced colitis. Please correlate with clinical as well as endoscopic findings. (IUV:pit 07/24/2019) . 02 Electronically signed: . Shantel Ford MD, Pathologist NPI- [id number] . 01 Gross description: . The specimen is received in formalin, labeled "Bailey Mendosafara " and consists of multiple fragments of ortiz tissue measuring 1.4 x 0.6 x 0.2 cm in aggregate which are entirely submitted in A1. (SDY; 07/20/2019) SYU/SYU 07/20/2019 1410 Local . 02 Pathologist provided ICD-10: K52.9 . 02 CPT . [id number] [address] [address] PATHOLOGY RPT PROCEDURE Name: BAILEY MENDOSA Room #: 451-P [facility] IN .R.#: [id number] Admission: 07/02/19 Date of : 34 Discharge: Report #: [id number] Path Case #: [id number] Specimen Comment: A courtesy copy of this report has been sent to [phone] Specimen Comment: [phone], Specimen Comment: Report sent to ,DR EUCEDA / DR THAPA Performed at: [address], [place], [place] [id number] MD Jose Thorne MD Phone: [phone] Performed at: [address] [id number] MD Shantel Ford MD Phone: [phone]
[2019-07-24 19:30] VITALS: BP 117/56
--- NOTE | 2019-07-24 19:43 | NUR ---
Assumed patient care at 0715. Vital signs stable, LSCTA, BS x's 4, abdomen is soft and non-tender. Skin continues to "itch", she has scratched open areas on her buttocks. She has not had any bowel movements. Patient continues on Low Intermittent Suctioning through her GJ Tube. She is getting Normal Saline at 75cc's per hour. Patient has pulled out two IV's in the last 24hours. Patient has been pleasantly confused, talking to unseen others while using her call light as a telephone. She has asked for her "momma" and has been singing her "ABC's." Patient has required a lot of time and attention throughout this shift. Patient has also been trying to get out of bed. Report given to on-coming RN.
--- NOTE | 2019-07-25 04:26 | NUR ---
Pt. rested quietly during the night when checked on during frequent rounds. She can get easily anxious at times. Pt. denies pain. Gj tube is patent to low intermittent suction. Bed alarm is on.
[2019-07-25 05:53] LABS: HEMATOCRIT 25.3 % (37.0-47.0); HEMOGLOBIN 8.1 gm/dL (12.0-15.0); MCH 25.9 pg (26.0-34.0); MCV 80.8 fL (80.0-100.0); RBC 3.13 mil/uL (4.20-5.00); RDW 17.2 % (10.5-14.5); WBC 4.7 thou/uL (4.0-11.0)
[2019-07-25 05:58] LABS: CALCIUM 7.9 mg/dL (8.5-10.1); CREATININE 1.1 mg/dL (0.6-1.0); POTASSIUM 4.5 mmol/L (3.5-5.1)
[2019-07-25 07:42] VITALS: BP 136/62
--- NOTE | 2019-07-25 14:39 | NUR ---
PT HAD EGD WITH A BIOPSY PERFORMED THIS DAY. CM FOLLOWING REGARDING DC PLANNING.
[2019-07-25 16:24] LABS: HEMATOCRIT 27.3 % (37.0-47.0); HEMOGLOBIN 8.3 gm/dL (12.0-15.0); MCH 25.8 pg (26.0-34.0); MCHC 30.3 g/dL (28.0-37.0); MCV 85.2 fL (80.0-100.0); RBC 3.21 mil/uL (4.20-5.00); RDW 17.1 % (10.5-14.5)
[2019-07-25 16:26] LABS: WBC 18.4 thou/uL (4.0-11.0)
[2019-07-25 16:31] LABS: CALCIUM 7.8 mg/dL (8.5-10.1); CREATININE 1.1 mg/dL (0.6-1.0)
[2019-07-25 16:32] LABS: POTASSIUM 5.5 mmol/L (3.5-5.1)
[2019-07-25 16:33] LABS: BE(vivo) -12.8 mmol/L (-2 to +3); HCO3 15.4 mmol/L (22.0-26.0); PCO2 45.3 mmHg (35.0-45.0); PO2 391.4 mmHg (80.0-100.0); sO2 99.7 % (92.0-98.0)
[2019-07-25 16:38] LABS: pH 7.149 (7.360-7.450)
[2019-07-25 16:45] LABS: ALBUMIN 2.3 g/dL (3.4-5.0); TOTAL BILIRUBIN 0.1 mg/dL (0.2-1.0); TOTAL PROTEIN 5.9 g/dL (6.4-8.2)
--- NOTE | 2019-07-25 17:36 | NUR ---
1610 RESPOND TO CODE IN PACU. PT WITH PULSE, INTUBATED. PLAN FOR TX TO ICU WHEN ROOM AVAILABLE. STAYED WITH PT IN PACU. 1645 ART LINE PLACED BY DR AMADO. DR CHISHOLM AT THE BEDSIDE. LR BOLUS GIVEN. 1730 IV TEAM AT BEDSIDE TO PLACE CENTRAL LINE, PHONE CONSENT FROM EULA GRIMES. DR MENESES ROUNDED AND SPOKE WITH EULA.
--- NOTE | 2019-07-25 18:47 | NUR ---
VASCULAR ACCESS NOTE PATIENT SEEN IN PACU POST CODE. CENTRAL LINE ORDERED. PHYSICIAN COMPLETED CONSENT FORM. L IJ WIDELY PATENT ON U.S ASSESSMENT. PATIENT PREPPED AND DRAPED UNDER STERILE CONDITIONS. 3ML 1% LIDOCAINE INJ GIVEN. VEIN CANNULATED WITH ONE ATTEMPT. GUIDEWIRE ADVANCED EASILY. VEIN DILATED. GUIDEWIRE REMOVED INTACT. 25CM CATHETER ADVANCED EASILY TO 22CM INTERNAL 3CM EXTERNAL. DISTAL PORT FLUSHES EASILY BUT WONT DRAW. OTHER TWO PORTS FLUSH AND DRAW EASILY. CXR SHOWS LINE CROSSING MIDLINE AND LOOPING BACK UP. ATTEMPTED REPOSITION NOT SUCCESSFUL. LINE BEING REPLACED.
[2019-07-25 18:57] LABS: PCO2 28.4 mmHg (35.0-45.0); PO2 85.8 mmHg (80.0-100.0); sO2 95.9 % (92.0-98.0)
[2019-07-25 18:58] LABS: pH 7.312 (7.360-7.450)
[2019-07-25 19:00] VITALS: BP 111/52
--- NOTE | 2019-07-25 19:26 | NUR ---
Assumed pt care this am, VS stable, maintained NPO tube feeding on hold. Pt slep for nost of the am til she was take down to surgery mid morning. Alert and oriented x 3, FC in place draining yellow urine. POC followed witn no signs or verbalizations of distress have been noted. WAs informed in the pm pt was transferring to 247 (ICU) from post op. [facility]. medications and chart were sent to ICU as well. REport given to ICU nurse.
--- NOTE | 2019-07-25 19:29 | NUR ---
PATIENT ARRIVED TO THE UNIT AT 1825. PATIENT ALERT AND FOLLOWING COMMANDS. PATIENT ATTEMPTING TO REMOVE ET TUBE AND RESTRAINTS APPLIED. FAMILY NOTFIED BY MITA EDWARDS AND THEY ARE AWARE OF PATIENT'S CURRENT STATUS.
[2019-07-25 20:00] VITALS: BP 118/51
--- NOTE | 2019-07-25 20:05 | NUR ---
VAT CONSULTED TO REPLACE LT IJ, RT IJ PLACED WITH TIP JUST INFERIOR TO THE CAJ, LT IJ REMOVED AFTER CXR AND LINE RELEASED TO RN FOR USE. PLEASE SEE INSERTION NOTE FOR DETAILS
[2019-07-26] VITALS (24 sets, daily range): BP systolic 73–131; BP diastolic 34–70
[2019-07-26 05:34] LABS: BE(vivo) -9.8 mmol/L (-2 to +3); HCO3 14.2 mmol/L (22.0-26.0); PO2 194.3 mmHg (80.0-100.0); pH 7.372 (7.360-7.450); sO2 99.3 % (92.0-98.0)
[2019-07-26 05:49] LABS: HEMATOCRIT 25.1 % (37.0-47.0); HEMOGLOBIN 7.9 gm/dL (12.0-15.0); MCH 25.4 pg (26.0-34.0); MCHC 31.6 g/dL (28.0-37.0); RBC 3.13 mil/uL (4.20-5.00); RDW 16.8 % (10.5-14.5); WBC 12.1 thou/uL (4.0-11.0)
[2019-07-26 05:52] LABS: MCV 80.2 fL (80.0-100.0)
[2019-07-26 06:04] LABS: CALCIUM 7.4 mg/dL (8.5-10.1); MAGNESIUM 1.6 mg/dL (1.8-2.4); POTASSIUM 4.6 mmol/L (3.5-5.1); TROPONIN-I 0.13 ng/mL (<0.06)
--- NOTE | 2019-07-26 07:33 | NUR ---
07/25 1999: DR. UMANA WAS CALLED REGARDING THE IVF.ORDER RECEIVED FOR 0.45% NS.DR. UMANA ASKED ABOUT RESTARTING PT MEDS AND USING PEG TUBE AFTER SUGRERY 07/24 2129: DR. FIELDS () CALLED AND VERIRFIED TO USE THE PEG TUBE AFTER LAPROSCOPY YESTERDAY. HE GAVE PERMISSION TO USE THE PEG TUBE FOR MEDS. 07/25 99: DR UMANA CALLED AGAIN PT BP DROPPED DUE TO PROPFOL AT LOW DOSE AND PT WAS NOT SEDATED ENOUGH TO REST ON THE VENT. ORDER FOR VERSED AND LEVOPHED GTT GIVEN. 07/25 554: CRITICAL LAB VALUES CALLED TO [facility]. NO ORDERS AND INTERVENTIONS AT THIS MOMENT.
--- NOTE | 2019-07-26 07:42 | NUR ---
PT FOLLOWING COMMANDS AND MOUTHING THINGS ON SEDATION VACATION. PT ON VERSED AND LEVOPHED DRIP. URINE OUTPUT LOW. DAY RN PHILL NOTIFIED ABOUT THE LOW URINE OUTPUT. FIO2 DECREASED TO 30% THIS AM. CHART CHECK. CONTINUE TO MONITOR.
--- NOTE | 2019-07-26 07:59 | NUR ---
Pt CODED AND TRANSFERRED TO ICU. Pt NOW INTUBATED. AUTOMATIC STANDING ORDERS FOR P.T. RECEIVED BUT WILL PLACE ON HOLD AND AWAIT NEW ORDERS FOR THERAPY TO RESUME WHEN APPROPRIATE.
--- NOTE | 2019-07-26 08:51 | EKG ---
[facility] [place] [address] ELECTROCARDIOGRAM REPORT Name: BAILEY LEIVA Room #: 247-P ADM IN M.R.#: [id number] Admission: 07/02/19 Attend Phys: Jefe Viera MD Discharge: Date of : 34 Report #: [id number] THIS REPORT FOR: cc: Jojo Rod,Jojo Granados,Gerardo Clarke MD [facility] ~ THIS REPORT FOR: //name// [facility] Test Date: 2019-07-25 Test Time: 15:58:03 Pat Name: BAILEY LEIVA Department: Room: [facility] Gender: F Chief Librarian Circulation Department: JJ : 1935 Requested By: Sherin Rivera Order Number: [id number] MD: Gerardo Renee Measurements Intervals [place] Rate: 42 P: 93 ME: 282 QRS: 108 QRSD: 163 T: -34 QT: 506 QTc: 423 Interpretive Statements Sinus bradycardia Prolonged ME interval RBBB and LPFB Compared to ECG 07/02/2019 20:01:12 Heart rate has slowed Electronically Signed On 07-26-2019 8:50:01 CDT by Gerardo Renee [email or web address] <ELECTRONICALLY SIGNED> By: Gerardo Renee MD, [facility] 07/26/19 0850 1558 1558 Gerardo Renee MD, [facility] /EPI
--- NOTE | 2019-07-26 08:53 | EKG ---
[facility] [place] [address] ELECTROCARDIOGRAM REPORT Name: BAILEY LEIVA Room #: 247-P ADM IN M.R.#: [id number] Admission: 07/02/19 Attend Phys: Jefe Viera MD Discharge: Date of : 34 Report #: [id number] THIS REPORT FOR: cc: Jojo Rod,Jojo Granados,Gerardo Clarke MD [facility] ~ THIS REPORT FOR: //name// [facility] Test Date: 2019-07-25 Test Time: 16:19:31 Pat Name: BAILEY LEIVA Department: Room: [facility] Gender: F Drum Builder: JJ : 1935 Requested By: Order Number: [id number] MD: Gerardo Renee Measurements Intervals [place] Rate: 118 P: [place]: QRS: 116 QRSD: 163 T: -35 QT: 367 QTc: 515 Interpretive Statements Atrial fibrillation Multiple ventricular premature complexes Right bundle branch block Abnormal lateral Q waves No previous ECG available for comparison Electronically Signed On 07-26-2019 8:51:29 CDT by Gerardo Renee [email or web address] <ELECTRONICALLY SIGNED> By: Gerardo Renee MD, [facility] 07/26/19 0851 1619 1619 Gerardo Renee MD, [facility] /EPI
--- NOTE | 2019-07-26 08:57 | EKG ---
[facility] [place] [address] ELECTROCARDIOGRAM REPORT Name: BAILEY LEIVA Room #: 247-P ADM IN M.R.#: [id number] Admission: 07/02/19 Attend Phys: Jefe Viera MD Discharge: Date of : 34 Report #: [id number] THIS REPORT FOR: cc: Jojo Rod,Jojo Granados,Gerardo Clarke MD [facility] THIS REPORT FOR: //name// [facility] Test Date: 2019-07-25 Test Time: 17:06:13 Pat Name: BAILEY LEIVA Department: Room: [facility] Gender: F Underwriter: JJ : 1935 Requested By: Sherin Rivera Order Number: [id number] MD: Gerardo Renee Measurements Intervals [place] Rate: 91 P: 262 DE: 123 QRS: -66 QRSD: 144 T: 36 QT: 449 QTc: 553 Interpretive Statements Sinus or ectopic atrial rhythm RBBB and LAFB Compared to ECG 07/02/2019 20:01:12 Sinus rhythm has replaced atrial fibrillation Intraventricular conduction delay is no longer present Electronically Signed On 07-26-2019 8:55:17 CDT by Gerardo Renee [email or web address] <ELECTRONICALLY SIGNED> By: Gerardo Renee MD, [facility] 07/26/19 0855 1706 1706 Gerardo Renee MD, [facility] /EPI
--- NOTE | 2019-07-26 09:01 | NUR ---
PATIENT CODED AND INTUBATED IN ICU. RECEIVED STANDING ORDERS TO EVALUATE BUT SINCE INTUBATED WILL AWAIT NEW ORDERS ONCE MEDICALLY APPROPRIATE.
--- NOTE | 2019-07-26 10:12 | NUR ---
WOUND CARE F/U IN ICU NOW, SEDATED, ASSESSED BUTTOCKS AREA W/ OUTDOOR LANDSCAPE ARCHITECT PHILL. AREA STILL CHELSIE AND EXCORIATED, FEW SMALL OPEN AREAS OPEN, BUT LESSEN FROM EARLIER IN WEEK, DRY CALAMINE LOTION PRESENT, HIP SCRATCH AREAS HEALING, NO S/S INFECTION, NO STOOL, PHOTO TAKEN RECOMMENDATIONS CONT OFF LOADING, TURNING, BARRIER CREAM BID AND PRN BUTTOCKS AREA OUTDOOR LANDSCAPE ARCHITECT AWARE
--- NOTE | 2019-07-26 10:59 | 2DMMODE ---
[facility] [place] [address] 2 D/M-MODE ECHOCARDIOGRAM Name: BAILEY LEIVA Room #: 247-P ADM IN M.R.#: [id number] Admission: 07/02/19 Attend Phys: Jefe Viera MD Discharge: Date of : 34 Report #: [id number] THIS REPORT FOR: cc: Jojo Rod,Jojo Granados,Gerardo Clarke MD [facility] ~ APPROVED REPORT Study performed: 07/26/2019 10:13:57 EXAM: Limited 2D, Doppler, and color-flow Echocardiogram Patient Location: ICU Room #: [facility] Status: routine BSA: 1.55 HR: 84 bpm BP: 117/49 mmHg Other Information Study Quality: Adequate Technically limited study due to patient on ventilator. Indications Status post asystole. Limited echo. Afib, LV function (Complete done 03/26/19) Hx: Aortic stenosis, DM, HLP. 2D Dimensions LVOT Diam: 20.10 (18-24mm) Aortic Valve AoV Peak Robert.: 3.63 m/s AO Peak Gr.: 52.75 mmHg LVOT Max P.66 mmHg AO Mean Gr.: 32.38 mmHg AO V2 Mean: 2.71 m/s LVOT Max V: 1.19 m/s AO V2 VTI: 74.89 cm KOBY Vmax: 1.04 cm2 Tricuspid Valve TR Peak Robert.: 2.68 m/s RAP Estimate: 10.00 mmHg TR Peak Gr.: 29.00 mmHg PA Pressure: 39.00 mmHg Left Ventricle [facility] [address] [place] [address] 2 D/M-MODE ECHOCARDIOGRAM Name: BAILEY LEIVA Room #: 247-P ADM IN M.R.#: [id number] Admission: 07/02/19 Attend Phys: Yvette Conde Discharge: Date of : 34 Report #: [id number] The left ventricle is normal size. There is normal LV segmental wall motion. Left ventricular systolic function is normal. LVEF is 65%. Right Ventricle The right ventricle is normal size. The right ventricular systolic function is normal. Atria The left atrium size is normal. The right atrium size is normal. Aortic Valve Aortic valve is calcified. Mild aortic regurgitation. There is moderate to severe valvular aortic stenosis. Calculated aortic valve area is 1.0 cm2 (Peak gradient of 53 mmHg, mean pressure gradient of 32 mmHg). Mitral Valve The mitral valve is normal in structure. Moderate mitral regurgitation. Tricuspid Valve The tricuspid valve is normal in structure. Mild to moderate tricuspid regurgitation. Estimated PAP is 40mmHg. Great Vessels IVC is normal in size and collapses <50% with inspiration. Pericardium There is no pericardial effusion. <Conclusion> Left ventricular systolic function is normal. LVEF is 65%. There is normal LV segmental wall motion. Aortic valve is calcified. Moderate to moderately severe valvular aortic stenosis. Calculated aortic valve area is 1.0 cm2 (Peak gradient of 53 mmHg, mean pressure gradient of 32 mmHg). The mitral valve is normal in structure. Moderate mitral regurgitation. Mild to moderate tricuspid regurgitation. Estimated pulmonary artery pressure of 40mmHg. There is no pericardial effusion. [facility] [address] [place] [address] 2 D/M-MODE ECHOCARDIOGRAM Name: BAILEY LEIVA Room #: 247-P [facility] IN ..#: [id number] Admission: 07/02/19 Attend Phys: Yvette Conde Discharge: Date of : 34 Report #: [id number] Similar to a study dated March 26, 2019 <ELECTRONICALLY SIGNED> By: Gerardo Renee MD, [facility] 07/26/19 1057 56 56 Gerardo Renee MD, [facility] /INF
[2019-07-26 11:38] LABS: CALCIUM 7.4 mg/dL (8.5-10.1); POTASSIUM 3.8 mmol/L (3.5-5.1)
--- NOTE | 2019-07-26 14:53 | NUR ---
TONY reviewed chart and spoke with attending physician. Pt was transferred to ICU from 4W after surgical procedure yesterday. Pt coded in PACU and intubated. Update provided to Juanita at [facility] regarding change in condition. Juanita is following to admission to their skilled unit when medically stable. Skilled bed given away today. [facility] will have beds become available within the next few days for when pt is getting closer to discharge. TONY is following to assist as needed with discharge planning.
--- NOTE | 2019-07-26 17:16 | NUR ---
ASSUMED CARE @ 0700 07/26/19, PT ASSESSMENTS AND VSS COMPLETE PER ICU PROTOCOL AND DOCUMENTED. PT ABLE TO FOLLOW COMMANDS DURING SEDATION VACATION. DR UMANA HERE TO ROUND, NEW ORDERS RECIEVED, SEDATION OFF @ 1315, CPAP @ 1512 -1517, PT FAILED AEB HR 120'S, RR 30'S. SEDATION SWITCHED BACK ON. PT SR-ST, ON LEVOPHED FOR BP SUPPORT. POC- CONT TO MONITOR.
[2019-07-27] VITALS (13 sets, daily range): BP systolic 72–141; BP diastolic 32–48
[2019-07-27 05:47] LABS: HEMATOCRIT 22.9 % (37.0-47.0); HEMOGLOBIN 7.3 gm/dL (12.0-15.0); MCH 25.3 pg (26.0-34.0); MCHC 31.9 g/dL (28.0-37.0); MCV 79.2 fL (80.0-100.0); RBC 2.89 mil/uL (4.20-5.00); RDW 17.4 % (10.5-14.5); WBC 11.8 thou/uL (4.0-11.0)
[2019-07-27 06:02] LABS: CALCIUM 6.7 mg/dL (8.5-10.1); CREATININE 0.9 mg/dL (0.6-1.0); MAGNESIUM 1.4 mg/dL (1.8-2.4); POTASSIUM 3.4 mmol/L (3.5-5.1)
--- NOTE | 2019-07-27 06:42 | NUR ---
Rested during the night. Repositioned q2 hrs for comfort. Keith. soft wrist restraints to protect lines.Cont. on versed and levophed. Maintaining O2 sat up to 100 % on current vent settings at 30% FIO2. Kept NPO per order. Adequate urine output per zeng. Complete bed bath given. Protective barrier applied to excoriated buttocks. Lap sites x 3 with dermabond. Will continue to monitor.
--- NOTE | 2019-07-27 08:06 | EKG ---
[facility] [place] [address] ELECTROCARDIOGRAM REPORT Name: BAILEY LEIVA Room #: 241-P ADM IN M.R.#: [id number] Admission: 07/02/19 Attend Phys: Jefe Viera MD Discharge: Date of : 34 Report #: [id number] THIS REPORT FOR: cc: Jojo Rod,Jojo Granados,Gerardo Clarke MD [facility] ~ THIS REPORT FOR: //name// [facility] Test Date: 2019-07-26 Test Time: 09:39:30 Pat Name: BAILEY LEIVA Department: Room: [facility] Gender: F Vocational Services Specialist: Paulina BRAXTON : 1935 Requested By: Licha Hollingsworth Order Number: [id number] MD: Gerardo Renee Measurements Intervals [place] Rate: 87 P: 260 VT: 143 QRS: -71 QRSD: 137 T: 56 QT: 461 QTc: 555 Interpretive Statements Sinus or ectopic atrial rhythm Atrial premature complex Right bundle branch block Left anterior hemiblock Compared to ECG 07/25/2019 17:06:13 Atrial premature complex(es) now present Electronically Signed On 07-27-2019 8:04:22 CDT by Gerardo Renee [email or web address] <ELECTRONICALLY SIGNED> By: Gerardo Renee MD, [facility] 07/27/19 0804 Gerardo Renee MD, [facility] /EPI
--- NOTE | 2019-07-27 08:34 | NUR ---
NURSE TALKED WITH DR. CHISHOLM IN REGARDS TO PATIENT STATUS. HR 120'S-130'S ARTERIAL SBP 80'S-170'S VARIFIED WITH CUFF PRESSURE. URINE OUTPUT NOTED TO PHYSICIAN WELL IT APPEARS YEST URINE OUTPUT WAS GREATER THAN 100ML/HR LAST NIGHT URINE OUTPUT APPEARS TO BE 25-45ML/HR PHYSICIAN EXPRSSED TO START PROPOFOL AND ADJUST LEVOPHED PER CLINICAL PARAMETERS NURSE TO PERFORM BLADDER SCAN TO EVALUATE ACURACY OF URINE OUTPUT. PHYSICIAN ORDERED 500ML BOLUS.
--- NOTE | 2019-07-27 08:47 | NUR ---
TF rate minimal/turned off since 07/20 (6 days). Recommend start of trickle feed 10ml/hr of vital AF 1.2 and increase towards 55ml/hr goal if approval from physician. Otherwise, consider change to tpn if bowel function has not returned.
--- NOTE | 2019-07-27 14:06 | EKG ---
[facility] [place] [address] ELECTROCARDIOGRAM REPORT Name: BAILEY LEIVA Room #: 241-P ADM IN M.R.#: [id number] Admission: 07/02/19 Attend Phys: Jefe Viera MD Discharge: Date of : 34 Report #: [id number] THIS REPORT FOR: cc: Jojo Rod,Jojo Lagos,Richard Daniels MD ~ THIS REPORT FOR: //name// [facility] Test Date: 2019-07-27 Test Time: 09:25:52 Pat Name: BAILEY LEIVA Department: Room: 241 P Gender: F Software Engineering Manager: [facility] : 1935 Requested By: Imelda Akhtar Order Number: [id number] MD: Richard Huber Measurements Intervals [place] Rate: 127 P: [place]: QRS: -69 QRSD: 132 T: 67 QT: 419 QTc: 610 Interpretive Statements Sinus tachycardia vs atrial tachycardia. Compared to ECG 07/26/2019 09:39:30 Electronically Signed On 07-27-2019 14:04:10 CDT by Richard Huber [email or web address] <ELECTRONICALLY SIGNED> By: Richard Huber MD 07/27/19 1404 Richard Huber MD /CAROL ANN
--- NOTE | 2019-07-27 15:32 | NUR ---
1525- Nurse talked with DR. Ferro in regards to sedatives, per understanding, Dr. Han would prefer her not to be on sedatives. Dr. Ferro expressed it is ok to titrate to 5mcg/kg/min on the propofol if vital signs and ventilator/patient management tolerates it. 1530- Nurse talked with Dr. Han about clarification of titration of sedatives. Physician expressed he prefered patient to be off of versed, however, may titrate propofol at preferred lowest dose as patient tolerates for ventilator management.
[2019-07-27 15:40] LABS: CALCIUM 6.6 mg/dL (8.5-10.1); CREATININE 0.8 mg/dL (0.6-1.0); MAGNESIUM 2.3 mg/dL (1.8-2.4); POTASSIUM 3.3 mmol/L (3.5-5.1)
--- NOTE | 2019-07-27 16:47 | NUR ---
SW reviewed chart and spoke with attending physician. Pt remains intubated. SW spoke with pt's son, Papo, via phone to provide update. No weekend discharge planned. TONY is following to assist as needed with discharge planning.
--- NOTE | 2019-07-27 18:49 | NUR ---
ASSESSMENT CHARTED. NEW ORDERS NOTED. PT STILL INTUBATED. TUBE FEEDING INFUSING @ 10CC/HR. DR. CHISHOLM UPDATED ON PT'S PROGRESS. MEDICATION TITRATED PER PROTOCAL. WILL CONTINUE TO MONITOR.
[2019-07-27 22:32] LABS: CALCIUM 6.3 mg/dL (8.5-10.1); CREATININE 0.7 mg/dL (0.6-1.0); POTASSIUM 3.8 mmol/L (3.5-5.1)
[2019-07-28] VITALS (47 sets, daily range): BP systolic 85–128; BP diastolic 35–67
[2019-07-28 04:38] LABS: HEMATOCRIT 24.9 % (37.0-47.0); HEMOGLOBIN 7.6 gm/dL (12.0-15.0); MCH 24.7 pg (26.0-34.0); MCHC 30.6 g/dL (28.0-37.0); MCV 80.9 fL (80.0-100.0); RBC 3.07 mil/uL (4.20-5.00); RDW 17.4 % (10.5-14.5); WBC 19.1 thou/uL (4.0-11.0)
[2019-07-28 05:15] LABS: CALCIUM 6.7 mg/dL (8.5-10.1); CREATININE 0.8 mg/dL (0.6-1.0); POTASSIUM 3.9 mmol/L (3.5-5.1)
[2019-07-28 05:42] LABS: BE(vivo) -10.3 mmol/L (-2 to +3); PCO2 25.7 mmHg (35.0-45.0); PO2 112.5 mmHg (80.0-100.0); pH 7.355 (7.360-7.450)
--- NOTE | 2019-07-28 07:14 | NUR ---
PT FOLLOWING COMMANDS. PT ON PROPOFOL GTT FOR VENT MANAGEMENT . PT ON LEVOPHED GTT. PT'S A LINE NOT FUNCTIONING. CUFF PRESSURE HAS BETTER READINGS. PT TOLERAING TRICKLE FEEDING. BOTTOM WOUNDS ARE BLEEDING AND MOIST. URINE OUTPUT IS MINIMALLY ADEQUATE. CONTINUE TO MONITOR.
--- NOTE | 2019-07-28 09:49 | NUR ---
ASSESSMENTS AND INTERVENTIONS DOCCUMENTED. PATIENT RESTING AT SHIFT CHANGE. RN ASSUMED CARE AT 0700. PATIENT ALERT AND FOLLOWING COMMANDS. PATIENT ATTEMPTING TO REMOVE ET TUBE. RN EDUCATED PATIENT ON ITS INDICATION. RN ASKING PATIENT IF SHE IS UNCOMFORTABLE PATIENT SHAKING HEAD NO. PATIENT ON LEVOPHED AND PROPFOL GTT. ART LINE IN PLACE BUT NOT READING PROPERLY. MANUAL BP RESUMED AT Q15 MINS TO TITRATE LEVOPHED PER HOSPITAL POLICY.
[2019-07-29] VITALS (36 sets, daily range): BP systolic 83–119; BP diastolic 26–51
--- NOTE | 2019-07-29 05:48 | NUR ---
Patient making slow progress towards outcome goals. Oxygenation optimal with current vent settings. Plenty of oral secretions. Vital signs and rhythm stable, Sinus with 1st Deg AVB and BBB. Amiodarone gtt at 0.5 mg/min. Propofol at 25 mcg/kg/min. Hypoactive BS, no BM. Tube feeding per J port Jevity 1.5 at 10 mlk/HR with 150 H2) flushes Q 4 Hours. G port to dependent drain, 400 ml greenish milky consistency. Pelaez catheter cloudy output 500 ml.
[2019-07-29 05:58] LABS: RBC 2.75 mil/uL (4.20-5.00)
[2019-07-29 05:59] LABS: MCH 25.6 pg (26.0-34.0); MCV 79.9 fL (80.0-100.0); RDW 17.1 % (10.5-14.5)
[2019-07-29 06:14] LABS: CALCIUM 6.1 mg/dL (8.5-10.1); CREATININE 0.6 mg/dL (0.6-1.0); MAGNESIUM 1.7 mg/dL (1.8-2.4); POTASSIUM 3.7 mmol/L (3.5-5.1)
--- NOTE | 2019-07-29 17:12 | NUR ---
PT REMAINES INTUBATED AND SEDATED. AMNIODORNE AND PROPOFOL GTTS INFUSING. PT WILL FOLLOW SIMPLE COMMANDS. DENIES PAIN. PT HYPOTENSIVE, OTHER VSS, BROOKS TO DD. PT TOLERATING TUBE FEEDING. WILL CONTINUE TO MONITOR.
[2019-07-30] VITALS (46 sets, daily range): BP systolic 66–127; BP diastolic 24–51
[2019-07-30 05:25] LABS: BE(vivo) -14.2 mmol/L (-2 to +3); HCO3 10.6 mmol/L (22.0-26.0); PCO2 21.3 mmHg (35.0-45.0); PO2 133.8 mmHg (80.0-100.0); pH 7.316 (7.360-7.450); sO2 98.5 % (92.0-98.0)
[2019-07-30 06:52] LABS: CALCIUM 6.1 mg/dL (8.5-10.1); CREATININE 0.7 mg/dL (0.6-1.0); POTASSIUM 3.2 mmol/L (3.5-5.1)
--- NOTE | 2019-07-30 07:44 | NUR ---
Pt remains sedated and intubated easy to arouse. Pt follows commands. Denies pain and discomfort. Tolerating vent well. No adverse events througout the night. Patient is stable. Javier continue to monitor.
--- NOTE | 2019-07-30 07:58 | NUR ---
DR. TALAVERA AT BEDSIDE. CPAP TRIAL INITATED BY RT. PATIENT RESTING IN BED A LITTLE RESTLESS, BUT FOLLOWING COMMANDS. NEW ORDERS RECIEVED.
--- NOTE | 2019-07-30 11:29 | NUR ---
WOUND CARE F/U; ASSESSED BUTTOCKS/SACRAL AREA W/ BOTTLE LABEL INSPECTOR KIN, AREA SLIGHTLY IMPROVED, LESS OPEN AREAS,LESS CHELSIE, HIP SCRATCHED AREAS HEALED, SOME DRY CALAMINE LOTION PRESENT, REMAINS ON VENT RECOMMENDATIONS; BARRIER CREAM TO BUTTOCKS/SACRAL AREA BID AND PRN, CONT OFF LOADING, TURN Q2 HOURS BOTTLE LABEL INSPECTOR AWARE
[2019-07-30 11:46] LABS: BE(vivo) -10.6 mmol/L (-2 to +3); HCO3 15.1 mmol/L (22.0-26.0); PCO2 32.6 mmHg (35.0-45.0); PO2 140.4 mmHg (80.0-100.0); sO2 98.5 % (92.0-98.0)
[2019-07-30 11:48] LABS: pH 7.283 (7.360-7.450)
[2019-07-30 12:20] LABS: HEMATOCRIT 22.3 % (37.0-47.0); MCH 25.4 pg (26.0-34.0); MCHC 31.7 g/dL (28.0-37.0); MCV 80.1 fL (80.0-100.0); RBC 2.78 mil/uL (4.20-5.00); RDW 17.7 % (10.5-14.5); WBC 9.3 thou/uL (4.0-11.0)
[2019-07-30 14:41] LABS: MAGNESIUM 1.6 mg/dL (1.8-2.4); PHOSPHORUS 1.6 mg/dL (2.5-4.9)
--- NOTE | 2019-07-30 16:24 | NUR ---
SW reviewed chart and spoke with attending physician. Pt remains intubated and in ICU. Pt to do CPAP trials today with goal of extubation today. SW provided update to Juanita in admissions at [facility]. [facility] [place] pt later in the week. data recovery planner to fax clinical info [place] [facility] [place]. TONY is following to assist as needed with discharge planning.
--- NOTE | 2019-07-30 16:41 | NUR ---
[facility]ED CL[facility]ICAL UPDATE TO [facility] RECEIVED CONFIRMATION AND LEFT MSG WITH LANDON IN ADM. DP TO FOLLOW.
--- NOTE | 2019-07-30 16:47 | NUR ---
5N CONSULT RECEIVED ON THIS Pt. Pt WAS SEEN BY EDSON BARRERA NP WHO RECOMMENDED SNF [facility] FOR Pt WITH POSSIBLE TRANSITION TO LTC DUE TO HER ANTICIPATED CONTINUTED NEEDS AFTER D/C. THANK YOU FOR THIS CONSULT.
[2019-07-31] VITALS (63 sets, daily range): BP systolic 77–146; BP diastolic 32–75
[2019-07-31 05:00] LABS: HEMATOCRIT 21.7 % (37.0-47.0); HEMOGLOBIN 6.8 gm/dL (12.0-15.0); MCHC 31.3 g/dL (28.0-37.0)
[2019-07-31 05:02] LABS: ABSOLUTE NEUTROPHILS 10.1 thou/uL (1.4-8.2); BASOPHILS 0.3 % (0.0-2.0); LYMPHOCYTES 4.1 % (24.0-44.0); MCV 79.9 fL (80.0-100.0); MONOCYTES 4.2 % (1.0-8.0); PLATELET COUNT 340 thou/uL (150-400); POLYS 89.4 % (36.0-66.0); RBC 2.72 mil/uL (4.20-5.00); RDW 17.4 % (10.5-14.5); WBC 11.3 thou/uL (4.0-11.0)
[2019-07-31 05:09] LABS: CALCIUM 6.5 mg/dL (8.5-10.1); CREATININE 0.7 mg/dL (0.6-1.0); MAGNESIUM 1.6 mg/dL (1.8-2.4); PHOSPHORUS 1.4 mg/dL (2.5-4.9); POTASSIUM 3.3 mmol/L (3.5-5.1)
--- NOTE | 2019-07-31 08:29 | NUR ---
Patient remains intubated. More alert and able to make needs know by gesturing to the staff with her hands. Patient received 1 unit of blood on this shift. Patient is more energenic and alert after the 1 uit. Assessment and interventions documented. Patient is stable progressing towaed goals.
--- NOTE | 2019-07-31 08:43 | NUR ---
RN ASSUMED CARE AT 0700. PATIENT ON PRECEDEX, LEVOPHED AND AMIO GTT. PATIENT ALERT AND FOLLOWING COMMANDS. FIRST UNIT OF BLOOD FINISHED TRANSFUSING. RN TO TRANFUSE [address] TALAVERA ROUNDING ON PATIENT THIS MORNING ORDERS RECIEVED.
--- NOTE | 2019-07-31 11:46 | O ---
[facility] [place] [address] OPERATIVE REPORT Name: BAILEY LEIVA Room #: 241-P ADM IN M.R.#: [id number] Admission: 07/02/19 Attend Phys: Jefe Viera MD Discharge: Date of : 34 Report #: [id number] THIS REPORT FOR: cc: Jojo Rod,Jojo Petty,Davonte Grove MD ~ CC: Jefe Rod DATE OF SERVICE: 07/25/2019 PREOPERATIVE DIAGNOSES: Small bowel obstruction, incarcerated ventral incisional hernia. POSTOPERATIVE DIAGNOSES: Small bowel obstruction, incarcerated ventral incisional hernia. OPERATION: Diagnostic laparoscopy with laparoscopic repair of incarcerated ventral incisional hernia with mesh. SURGEON: Davonte Thomas MD ANESTHESIA: General. ESTIMATED BLOOD LOSS: Minimal. SPECIMEN: None. DESCRIPTION OF PROCEDURE: After informed consent was obtained, the patient was brought to the operating room and placed supine. SCDs were placed and working, preoperative antibiotics were administered, general anesthesia was induced. The abdomen was prepped and draped in the usual sterile fashion. A 5 mm incision was made in the left upper quadrant. A 5 mm trocar was placed under direct vision. Pneumoperitoneum was established. Two left-sided 5 mm ports were placed. I ran the small bowel proximally and distally from the cecum to the ligament of Treitz. The small bowel appeared normal in caliber. In the right upper quadrant, corresponding with the CT findings, she had incarcerated ascending colon in the ventral hernia. I carefully reduced the ascending colon from the hernia defect. This was a ventral incisional hernia from a previous cholecystectomy. After the colon had been fully reduced, the hernia defect was identified. It measured approximately 2.5 x 2 cm. I therefore inserted an 11 cm Bard Ventralight mesh. It was brought to the abdominal wall. This was done with a [facility] [address] [place] [address] OPERATIVE REPORT Name: BAILEY LEIVA Room #: 241-P [facility] IN ..#: [id number] Admission: 07/02/19 Attend Phys: Jefe Viera MD Discharge: Date of : 34 Report #: [id number] Ethibond suture. I then tacked around the edges of the mesh with an absorbable tacker. This was the SorbaFix. This covered the defect widely. Approximately 25 absorbable tacks were placed. There was wide coverage of defect. The ports were then removed under direct vision. The skin was closed with 4-0 Monocryl. Incisions were sealed with Dermabond. COMPLICATIONS: None. DISPOSITION: The patient was taken to recovery in satisfactory condition. <ELECTRONICALLY SIGNED> By: Davonte Thomas MD 07/31/19 1146 [id number] Davonte Thomas MD /nt
[2019-07-31 13:25] LABS: HEMATOCRIT 28.2 % (37.0-47.0)
[2019-07-31 13:29] LABS: HEMOGLOBIN 9.1 gm/dL (12.0-15.0)
--- NOTE | 2019-07-31 15:03 | NUR ---
SW reviewed chart and spoke with attending physician. Pt remains in ICU. Vent weaning trials today. Pt received blood transfusion. Plan is for pt to discharge to [facility] when medically stable. SW is follwoing to assist as needed with discharge planning.
[2019-08-01] VITALS (35 sets, daily range): BP systolic 85–176; BP diastolic 40–78
[2019-08-01 04:35] LABS: HEMATOCRIT 28.5 % (37.0-47.0); HEMOGLOBIN 9.2 gm/dL (12.0-15.0); MCH 25.6 pg (26.0-34.0); MCHC 32.3 g/dL (28.0-37.0); MCV 79.3 fL (80.0-100.0); RBC 3.6 mil/uL (4.20-5.00); RDW 18.1 % (10.5-14.5); WBC 9.4 thou/uL (4.0-11.0)
[2019-08-01 04:49] LABS: CALCIUM 6.4 mg/dL (8.5-10.1); CREATININE 0.6 mg/dL (0.6-1.0); MAGNESIUM 1.7 mg/dL (1.8-2.4); PHOSPHORUS 2.2 mg/dL (2.5-4.9); POTASSIUM 3.9 mmol/L (3.5-5.1)
--- NOTE | 2019-08-01 07:16 | NUR ---
ASSESSMENTS CHARTED, MEDS GIVEN CHARTED. PATIENT RESTING IN BED DURING SHIFT. ON VENTILATOR DURING SHIFT. PT ON PRECIDEX, AMIO,LEVOPHED AND MAINTENANCE FLUIDS DURING SHIFT. ALERT AND ORIENTED, CAN NOT SPEAK, BUT WRITING WHAT SHE WANTS TO SAY. PATIENT ON RESTRAINTS DURING SHIFT. TURNS CHARTED. FALL PRECAUTIONS IN PLACE DURING SHIFT. DENIED PAIN.
--- NOTE | 2019-08-01 07:36 | NUR ---
RN ASSUMED CARE AT 0700. PATIENT ALERT AND FOLLOWING COMMANDS. PATIENT PLACED ON CPAP TRIAL AT [address] TALAVERA ROUNDING THIS MORNING, ORDERS TO START WEANING RECEIVED.
[2019-08-01 08:47] LABS: BE(vivo) -7.6 mmol/L (-2 to +3); HCO3 16.2 mmol/L (22.0-26.0); PCO2 27.6 mmHg (35.0-45.0); PO2 110.3 mmHg (80.0-100.0); pH 7.386 (7.360-7.450); sO2 98.1 % (92.0-98.0)
--- NOTE | 2019-08-01 13:19 | NUR ---
1315- Nurse attempted to restart tube feedings. Unable to flush J-port of tube in order to restart tube feedings. 1318- Call placed to Dr. Han Blood glucose was treated and a recheck was performed. Nurse to continue to monitor patient status.
--- NOTE | 2019-08-01 13:51 | NUR ---
Per Dr. Han, places jeremy into tube, attempt to open J-tube with this. May also use pancreatic enzymes. Nurse sara luna, has been working with it for 15 minutes. Will let it set for a bit, then call pharmacy.
--- NOTE | 2019-08-01 15:26 | NUR ---
TONY reviewed chart and spoke with nursing and attending physician. Pt remains in ICU. Pt was extubated earlier today. TONY provided update to Juanita at [facility]. Bed will be available for pt tomorrow and Tuesday. TONY left voice message for pt's son, Papo, to provide update and discuss discharge plan. TONY is following to assist as needed with discharge planning.
--- NOTE | 2019-08-01 16:24 | NUR ---
Nurse attempted to clear patients J-tube without success, using coke. However, nurse called pharmacy for pancreatic enzymes, per Dr. Han request. The hospital only carries extended release doses, not the immediate powder form. Dr. Han expressed he will be here to round on her, in regards to her J-tube. Nurse awaiting his arrival.
--- NOTE | 2019-08-01 18:05 | NUR ---
Patient expressed that she is hurting all over, her knees, her right arm, her throat, her back. Repositioning provided, without success. Nurse talked with Dr. Bolden, fentanyl ordered. Nurse to provide this medication per MD order.
--- NOTE | 2019-08-01 18:41 | NUR ---
Patient progressing towards plan of care as evidenced by patient extubated today, maintaining oxygenation on 1 L nasal cannula. She has a productive cough. Heart rate is 90's-100's, patient expresses pain, pain medication given. Respiratory rate is 20's-30's. She denies shortness of air.
[2019-08-02] VITALS (18 sets, daily range): BP systolic 137–170; BP diastolic 44–71
--- NOTE | 2019-08-02 04:45 | NUR ---
PT DID NOT REST WAS ALL NOC. SHE WAS AWAKE FOR MOST OF THE NOC. SHE IS CONSTANTLY SUCTIONING HER ORAL CAVITY OR SPITTING OUT INTO KLEENEX. SHE WENT THROUGH 2 BOXES OF KLEENEX TONIGHT. J TUBE PORT STILL CLOGGED. WAITING ON DR. CORONA TO REVISIT PT WITH NEW ORDERS ON HOW TO MOVE FORWARD WITH THE CLOGGED TUBE. GREAT U/O THIS SHIFT WITH AN AVERAGE >45ML/HR. SHE IS ON ROOM AIR, WITH SATS IN 97, HER VOICE IS BECOMING CLEARER AND NOT SO "WHISPERY" PT IS PROGRESSING WELL TOWARDS POC
[2019-08-02 06:05] LABS: HEMATOCRIT 30.3 % (37.0-47.0); HEMOGLOBIN 9.9 gm/dL (12.0-15.0); MCHC 32.9 g/dL (28.0-37.0); RBC 3.83 mil/uL (4.20-5.00); RDW 18.5 % (10.5-14.5); WBC 8.6 thou/uL (4.0-11.0)
[2019-08-02 06:19] LABS: CALCIUM 6.6 mg/dL (8.5-10.1); CREATININE 0.7 mg/dL (0.6-1.0); MAGNESIUM 1.7 mg/dL (1.8-2.4); POTASSIUM 3.2 mmol/L (3.5-5.1)
--- NOTE | 2019-08-02 09:41 | NUR ---
0740- IN TO SEE.--VW 0930- IN.CARE TURNED OVER TO JERRY BARNETT.--VW
--- NOTE | 2019-08-02 11:45 | NUR ---
per los, pt going to have feeding tube replaced or unclogged. will possible be ready for dc to [facility] tomorrow 08/03/2019. cm sent message to [facility] brenda with updates. will cont following as needed for dc needs.
[2019-08-02 12:52] LABS: INR 1.2
--- NOTE | 2019-08-02 13:45 | NUR ---
WOUND CARE F/U; THIS PATIENTS BUTTOCKS AND PERINIUM IS ESCORATED RE; DIARRHEA. FIREY RED, VERY PAINFUL. CURRENTLY USING BARRIER CREAM. RECOMMENDATIONS; PHONE CALL PLACED TO DR CHISHOLM WHO DECIDED TO CONSULT DR MOBLEY. DISCUSSED WITH JERRY
--- NOTE | 2019-08-02 14:03 | NUR ---
SPOKE W TWICE RE:MG+ REPLACEMENT-WILL PUT ORDERS IN. PT TO TRANSFER OUT OF ICU IF BED BECOMES AVAILABLE. D/W SKIN ISSUES ON BUTTOCKS.HE STATES PT FIGHTS THIS ALL THE TIME. 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
--- NOTE | 2019-08-02 17:12 | NUR ---
FAXED CLINICAL UPDATE TO [facility] RECEIVED CONFIRMATION AND SPOKE WITH LANDON IN ADM OF POSS DC TOMORROW.
[2019-08-03] VITALS (23 sets, daily range): BP systolic 137–160; BP diastolic 52–70
--- NOTE | 2019-08-03 02:01 | NUR ---
ASSUMED CARE AT 1900. WITH HELP OF OFF-GOING RN, CHANGED CHUX AND REPOSITIONED FMS, TURNED PT TO LEFT SIDE. BUTTOCKS PINK AND FLAKING, VERY EXCORIATED. PT C/O PAIN WITH ANY TURNS/MOVEMENT, REFUSED NEXT TURN AT 2200. ABD SLIGHTLY DISTENDED WITH HYPOACTIVE BOWEL SOUNDS, VITAL AF INFUSING THROUGH J-PORT OF G-J TUBE, Q4 HOUR WATER FLUSHES, NO RESIDUAL; G-PORT TO DEPENDENT DRAINAGE EXCEPT AFTER GIVING MEDS, THEN CLAMPING SITE FOR ONE HOUR, CONTENTS DARK GREEN. ABOUT 0100, PT HAD EMESIS OF VERY THICK, CLEAR CONSTISTENCY, APPROX 150 ML. PT REPORTED FEELING SLIGHTLY NAUSEATED BUT SAID SHE ACTUALLY FELT MORE HUNGRY THAN ANYTHING. GAVE DOSE OF ZOFRAN. SHE WAS ALSO COUGHING AND CLEARING THROAT, AND COUGHING UP SOME THICK, YELLOW/WHITE SPUTUM AFTERWARD. CLEANED HER UP AND CHANGED GOWN; PT NOW SUCTIONING MOUTH FREQ WITH YANKUR.
[2019-08-03 05:31] LABS: HEMATOCRIT 30.2 % (37.0-47.0); HEMOGLOBIN 9.7 gm/dL (12.0-15.0); MCH 25.6 pg (26.0-34.0); MCHC 32.2 g/dL (28.0-37.0); MCV 79.5 fL (80.0-100.0); RBC 3.8 mil/uL (4.20-5.00); RDW 18.3 % (10.5-14.5); WBC 8.3 thou/uL (4.0-11.0)
[2019-08-03 07:08] LABS: CALCIUM 6.9 mg/dL (8.5-10.1); CREATININE 0.6 mg/dL (0.6-1.0); MAGNESIUM 1.6 mg/dL (1.8-2.4); POTASSIUM 3.3 mmol/L (3.5-5.1)
--- NOTE | 2019-08-03 09:00 | NUR ---
requested chart copy rt pt going to dc to [facility] when medical stable and ordered by MD. bedside nurse to call report to [phone]. fax [phone] to send over dc orders. will cont following as needed for dc needs.
--- NOTE | 2019-08-03 16:24 | NUR ---
TONY reviewed chart and spoke with attending physician. Pt is slowly progressing towards goals for discharge. Recommendation made for LTAC evaluation. TONY spoke with pt's sons, Papo and Maksim via phone to discuss recommendation for LTAC placement. Reviewed level of care at LTAC v. SNF. Pt has been to [facility] in the past. Pt and family are agreeable with referral to [facility]. No weekend discharge anticipated. TONY faxed referral to intake (with Rev codes and COVID-19 test results) at [facility] for review. TONY updated attending physician. TONY also updated Juanita at [facility]. [facility] will have a bed available next week, if pt needs SNF level of care. TONY is following to assist as needed with discharge planning.
--- NOTE | 2019-08-03 17:47 | NUR ---
ASSUMED PATIENT CARE AT 0700. A/O X4. FORGETFUL. INCREASED TF TO GOAL RATE. PATIENT TOLERATED IT WELL. GASTRIC TUBE TO DEPENDENT DRAIN HAS 200ML OUT. ASSISTED PATIENT Q2H TURN. CREAM TO YASMEEN BUTTOCK. IRRIGATED FMS. PATIENT ABLE TO ORAL SUCTION. VSS. SLOWLY TOWARDS POC GOALS.
[2019-08-04] VITALS (8 sets, daily range): BP systolic 136–160; BP diastolic 54–82
[2019-08-04 06:23] LABS: ABSOLUTE NEUTROPHILS 5.9 thou/uL (1.4-8.2); BASOPHILS 0.6 % (0.0-2.0); EOSINOPHILS 3.3 % (0.0-3.0); HEMATOCRIT 28.5 % (37.0-47.0); HEMOGLOBIN 9.3 gm/dL (12.0-15.0); LYMPHOCYTES 8.4 % (24.0-44.0); MCHC 32.7 g/dL (28.0-37.0); MCV 79.4 fL (80.0-100.0); MONOCYTES 5.4 % (1.0-8.0); PLATELET COUNT 283 thou/uL (150-400); POLYS 82.3 % (36.0-66.0); RBC 3.59 mil/uL (4.20-5.00); RDW 18.6 % (10.5-14.5); WBC 7.2 thou/uL (4.0-11.0)
[2019-08-04 06:43] LABS: CALCIUM 6.8 mg/dL (8.5-10.1); CREATININE 0.7 mg/dL (0.6-1.0); MAGNESIUM 1.4 mg/dL (1.8-2.4); PHOSPHORUS 1.3 mg/dL (2.5-4.9); POTASSIUM 3.5 mmol/L (3.5-5.1)
--- NOTE | 2019-08-04 07:33 | NUR ---
ASSUME CARE 1900. PT/VITALS STABLE. INTERMITTENT GENERALIZED PAIN ESPECIALLY NON CARDIAC CHEST PAIN NOTED WITH COUGHING. SR ON MONITOR. PT IS A/O X 3 AND ANSWERS QUESTIONS APPROPRIATELY. PT ALSO COMMUNICATES NEEDS APPROPRIATELY. FORGETFUL AT TIMES AND WAINWRIGHT. ASSESSMENT CHARTED. PROGRESSING MODERATELY WITH POC. TUBE FEEDING WELL TOLERATED WITH LESS THAN 5ML RESIDUALS NOTED. PLAN IS TO CONTINUE WITH TUBE FEEDING TO IMPROVE NUTRITIONAL INTAKE, CONTINUE ANTIBIOTICS FOR INFECTION AND CONTINUE WITH PT/OT FOR WEAKNESS. WILL CONTINUE TO MONITOR PATIENT AND FOLLOW WIHT POC
[2019-08-05] VITALS (8 sets, daily range): BP systolic 131–176; BP diastolic 50–63
--- NOTE | 2019-08-05 02:09 | NUR ---
PT LYING IN BED. TRAMADOL PROVIDING PAIN RELIEF. CREAMS ON BUTTOCKS FOR ITCHING. RESTING COMFORTABLY. FREQUENT OBSERVATION.
--- NOTE | 2019-08-05 19:45 | NUR ---
PT CARE ASSUMED AT 0700. ASSESSMENTS CHARTED. MEDICATION CHARTED. G-TUBE FOR MEDICATIONS. J-TUBE FOR TUBE FEEDING. BROOKS AND FECAL MGT SYSTEM. FMS BECAME DISLODGED AND WAS REINSERTED. DR MAYA WANTS NYSTATIN POWDER ONLY ON BUTTOCKS. PC - FAIR; THICK EASON SPUTUM. CHEST PAIN DUE TO COUGH. PT MORE CONFUSED TODAY.
[2019-08-05 23:03] LABS: URINE BILIRUBIN NEGATIVE (Negative); URINE BLOOD 2+ (Negative); URINE CLARITY CLEAR; URINE COLOR YELLOW; URINE GLUCOSE-RANDOM* NEGATIVE (Negative); URINE KETONES NEGATIVE (Negative); URINE NITRITE-REFLEX NEGATIVE (Negative); URINE PROTEIN (DIPSTICK) 1+ (Negative); URINE SPECIFIC GRAVITY 1.015 (1.005-1.035); URINE UROBILINOGEN 0.2 E.U./dl (0.2-1.0)
[2019-08-05 23:09] LABS: URINE LEUKOCYTES-REFLEX 1+ (Negative)
[2019-08-05 23:12] LABS: CASTS None Seen /LPF (None Seen); MUCUS None Seen strn/LPF (None Seen); SQUAMOUS None Seen /LPF (0-3); YEAST-REFLEX Present (None Seen)
[2019-08-05 23:13] LABS: BACTERIA-REFLEX 1-9 Few /HPF (None Seen); CRYSTALS None Seen /LPF (None Seen); URINE RBC 3-10 Few /HPF (0-2); URINE WBC-REFLEX 6-15 Few /HPF (0-5)
[2019-08-06 00:12] VITALS: BP 124/48
--- NOTE | 2019-08-06 03:33 | NUR ---
ASSESSMENT DOCUMENTED.PT BEEN RESTING IN NO ACUTE DISTRESS.A/OX2-3 WITH FORGETFULNESS.FOLLOWS COMMANDS APPROPRIATELY.ON RA W/O RESPIRATORY DISTRESS.INCREASED ORAL SECRETION NOTED,SUCTIONED TOLERATED,ORAL CARE GIVEN FREQUENTLY.C/O PAIN THAT WAS CONTROLLED W/PAIN MEDS.FECAL MANAGEMENT IN PLACE.PT HAVING LARGE AMOUNT OF LIQUID STOOLS.FREQ PERICARE GIVEN.NYSTATIN TO BUTTOCKS PER ORDERS.BROOKS TO DD.TUBE FEEDING ORDERED.POC IS TO CONTINUES W/POC.WILL CONT TO MONITOR PER POC
[2019-08-06 05:01] VITALS: BP 155/55
[2019-08-06 06:16] LABS: ALBUMIN 1.4 g/dL (3.4-5.0); CALCIUM 7.3 mg/dL (8.5-10.1); CREATININE 0.5 mg/dL (0.6-1.0); MAGNESIUM 1.4 mg/dL (1.8-2.4); PHOSPHORUS 0.8 mg/dL (2.5-4.9); POTASSIUM 3.7 mmol/L (3.5-5.1); TOTAL BILIRUBIN 0.2 mg/dL (0.2-1.0); TOTAL PROTEIN 4.9 g/dL (6.4-8.2)
[2019-08-06 06:21] LABS: ABSOLUTE NEUTROPHILS 5.1 thou/uL (1.4-8.2); BASOPHILS 0.6 % (0.0-2.0); EOSINOPHILS 1.8 % (0.0-3.0); LYMPHOCYTES 9.3 % (24.0-44.0); MCH 25.8 pg (26.0-34.0); MCV 80.8 fL (80.0-100.0); MONOCYTES 5.2 % (1.0-8.0); POLYS 83.1 % (36.0-66.0); RBC 3.09 mil/uL (4.20-5.00); RDW 19.9 % (10.5-14.5); WBC 6.1 thou/uL (4.0-11.0)
[2019-08-06 06:25] LABS: PLATELET COUNT 167 thou/uL (150-400)
[2019-08-06 08:25] VITALS: BP 157/54
[2019-08-06 11:10] VITALS: BP 150/56
--- NOTE | 2019-08-06 15:08 | HC ---
[facility] [place] [address] CONSULTATION Name: BAILEY LEIVA Room #: 218-P ADM IN M.R.#: [id number] Admission: 07/02/19 Attend Phys: Jefe Viera MD Discharge: Date of : 34 Report #: [id number] THIS REPORT FOR: cc: Jojo Rod,Jojo Hinkle,Anirudh Parnell MD ~ CC: Jefe Rod DATE OF SERVICE: 08/02/2019 CHIEF COMPLAINT: Gluteal dermatitis. HISTORY OF PRESENT ILLNESS: This is an 83-year-old female patient who was admitted to the hospital at the beginning of June 2019. She is currently status post cardiac arrest and in an Intensive Care Unit. She was originally staying at [facility], was noted to have coffee-ground emesis and altered mental status and was admitted on 07/02/2019 with metabolic encephalopathy, urinary tract infection and hypothyroidism. She did undergo EGD with biopsy on 07/04/2019 and did undergo a laparoscopic ventral hernia repair with Dr. Thomas on 07/25/2019. [address] way, she has been noted to have some gluteal dermatitis that has been nonresponsive to a topical barrier creams and we have been asked to see her now with regard to wound care opinion regarding her skin care on her buttocks bilaterally. The patient is not able to provide much information about herself. She has significant dementia. She is pleasant, lying in bed in her room. ALLERGIES: None. MEDICATIONS: At this time include acetaminophen, albuterol, ipratropium, amiodarone, aspartame, ceftazidime, diltiazem, enoxaparin, fentanyl, hydralazine, hydroxyzine, lactobacillus, loperamide, melatonin, metoclopramide, metoprolol, minocycline, omeprazole, ondansetron, spironolactone, torsemide and tramadol. SOCIAL HISTORY: The patient normally resides in a nursing care facility. No recent history of alcohol or tobacco use. FAMILY HISTORY: Unknown. REVIEW OF SYSTEMS: Not obtainable due to the patient's alertness and her significant dementia. All pertinent items that are obtainable are already discussed in the history of present illness. PHYSICAL EXAMINATION: VITAL SIGNS: Include temperature 36.8, pulse 96, respiratory rate 30, blood [address] [address] CONSULTATION Name: BAILEY LEIVA Room #: 218-P [facility] IN M.R.#: [id number] Admission: 07/02/19 Attend Phys: Jefe Viera MD Discharge: Date of : 34 Report #: [id number] pressure 166/70. GENERAL: This is a chronically ill-appearing female patient who appears to be in no distress. HEENT: Head normocephalic. Nose and throat are clear. NECK: Supple. LUNGS: Diminished. ABDOMEN: Soft, minimally tender. EXTREMITIES: Examination of the lower extremities demonstrates trace edema. Sacral gluteal region demonstrates significant dermatitis. It has some appearance that would suggest possible fungal involvement. There is no evidence of pressure ulceration at this time. NEUROLOGIC: The patient appears to move symmetrically. She is disoriented. CLINICAL IMPRESSION: 1. Gluteal dermatitis, possibly fungal in origin. 2. Status post recent cardiac arrest. 3. Acute respiratory failure. 4. Recent ventral hernia repair. 5. History of sepsis and urinary tract infection. 6. Clostridium difficile enterocolitis. 7. Advanced dementia. 8. Severe protein-calorie malnutrition with albumin 2.3. 9. Generalized debility. RECOMMENDATIONS: At this point in time, with regard to the gluteal dermatitis, I will recommend gentle cleansing with soap and water and then pat dry and then apply terbinafine cream b.i.d. and p.r.n., otherwise being left open to air. We will consider systemic antifungal medications and will intend to discuss this with Dr. Miller. We can certainly see how she does with topicals for the short term. She will need a low air loss mattress surface ____ q. 2 hour turning and repositioning. She is currently being followed by Cardiology and Pulmonology. We will recommend maximizing her nutrition as much as possible to enhance wound healing and overall condition. Continuation of current medications as appropriate. I appreciate being asked to see her in consultation. <ELECTRONICALLY SIGNED> By: Anirudh Cohen MD 08/06/19 1508 [id number] Anirudh Cohen MD /nt
[2019-08-06 16:20] VITALS: BP 154/48
--- NOTE | 2019-08-06 18:31 | NUR ---
ASSUMED CARE AT SHIFT CHANGE, AND ASSESSMENT DOCUMENTED. TF PER ORDERS AT 50/HR +150 H2O Q6. PATIENT C/O PAIN AND ITCHIGN AND MEDICATED INDICATED. Q2 TURNS/ AND FREQ MISAEL DONE. FOELY TO DD WITH ADQUITE AMOUNT OF URINE, AND FECAL MNGT INPLACE. AND WILL CONTINUE WITH POC.
[2019-08-06 19:54] VITALS: BP 136/51
[2019-08-07 00:25] VITALS: BP 136/57
[2019-08-07 05:22] VITALS: BP 142/47
[2019-08-07 07:09] VITALS: BP 135/46
[2019-08-07 09:00] LABS: HEMATOCRIT 23.2 % (37.0-47.0); HEMOGLOBIN 7.9 gm/dL (12.0-15.0); MCH 27.5 pg (26.0-34.0); MCV 80.9 fL (80.0-100.0); RBC 2.86 mil/uL (4.20-5.00); RDW 19.8 % (10.5-14.5); WBC 5.6 thou/uL (4.0-11.0)
[2019-08-07] MEDS ORDERED: POTASSIUM20 MEQ/15 PER TUBE (12:05)
[2019-08-07] MEDS ORDERED: FIBERCON CHEWA625 MG PER TUBE (12:05)
[2019-08-07] MEDS ORDERED: OMEPRAZOLE 20 M20 M1 PER TUBE (12:05)
[2019-08-07] MEDS ORDERED: METOPROLOL TART25 MG PER TUBE (12:05)
[2019-08-07] MEDS ORDERED: LOPERAMIDE 2 MG2 M1 PO (12:05)
[2019-08-07] MEDS ORDERED: CARDIZEM30 MG PO (12:05)
[2019-08-07] MEDS ORDERED: CHOLESTYRAMINE L4 GM PER TUBE (12:05)
[2019-08-07] MEDS ORDERED: NYAMYC15 GM TOP (12:05)
--- NOTE | 2019-08-07 14:29 | NUR ---
DISCHARGE NOTE: TONY reviewed chart and spoke with nursing and attending physician. Pt transferred to CCU from ICU and is medically stable for discharge to [facility] today. TONY notified [facility] liaison, who confirms they are able to accept pt today. Request for transportation for [id number]. TONY arranged ambulance transportation at 1500 via [facility]. [facility] hurdison spoke with pt's son to provide update and notify of admission to [facility] today. Son is agreeable with plan. party planner faxed clinical updates and discharge orders to [facility] and notified pt's son of transportation time. Chart copy requested. Nursing to call report. TONY updated Juanita at [facility] to follow for when pt is ready to returned to their SNF. TONY notified [facility] liaison of transportation time. No additional SW needs identified at this time, but is available to assist should needs arise.
[2019-08-07 16:10] VITALS: BP 124/54
--- NOTE | 2019-08-07 17:34 | NUR ---
ASSUMED CARE AT SHIFT CHANGE, ASSESSMENT DOCUMENTED, VSS AND AFEBRILE. MEDICATED FOR PAIN AND ITCHING NEEDED. Q2 TURN NEEDED AND FOR COMFORT. AND PATIENT TRANSFERED TO [facility].
== END 2019-08-07 17:43 | DRG 853 ==
LOC: ER 18:18 → EROBS 20:36 → 4W 20:36 → ICU 20:36 → 4W 23:15 → ICU 07-25 17:19 → 2N 08-03 22:50
PROVIDERS: Anesthesiology; Emergency Medicine; Hospitalist; Internal Medicine; Internal Medicine Infectious Disease; Internal Medicine Pulmonary Disease; Nurse Practitioner; Nurse Practitioner Family; Pediatrics; Radiology Diagnostic Radiology; Specialist; ADMIT Hospitalist; ATTEND Hospitalist
PROC: 30233N1 Transfusion of Nonautologous Red Blood Cells into Peripheral Vein, Percutaneous Approach (ICD-10-PCS; principal; 2019-07-03)
PROC: 0DB38ZX Excision of Lower Esophagus, Via Natural or Artificial Opening Endoscopic, Diagnostic (ICD-10-PCS; 2019-07-04)
PROC: 0DBN8ZX Excision of Sigmoid Colon, Via Natural or Artificial Opening Endoscopic, Diagnostic (ICD-10-PCS; 2019-07-19)
PROC: 0DJ08ZZ Inspection of Upper Intestinal Tract, Via Natural or Artificial Opening Endoscopic (ICD-10-PCS; 2019-07-19)
PROC: BD16ZZZ Fluoroscopy of Upper GI and Small Bowel (ICD-10-PCS; 2019-07-20)
PROC: 0DHA3UZ Insertion of Feeding Device into Jejunum, Percutaneous Approach (ICD-10-PCS; 2019-07-20)
PROC: 0BH17EZ Insertion of Endotracheal Airway into Trachea, Via Natural or Artificial Opening (ICD-10-PCS; 2019-07-25)
PROC: 0WUF4JZ Supplement Abdominal Wall with Synthetic Substitute, Percutaneous Endoscopic Approach (ICD-10-PCS; 2019-07-25)
PROC: 5A1955Z Respiratory Ventilation, Greater than 96 Consecutive Hours (ICD-10-PCS; 2019-07-25)
PROC: 02HV33Z Insertion of Infusion Device into Superior Vena Cava, Percutaneous Approach (ICD-10-PCS; 2019-07-25)
PROC: 0DHA3UZ Insertion of Feeding Device into Jejunum, Percutaneous Approach (ICD-10-PCS; 2019-08-02)
PROC: BD16YZZ Fluoroscopy of Upper GI and Small Bowel using Other Contrast (ICD-10-PCS; 2019-08-02)
DX: A41.9 Sepsis, unspecified organism (principal); K22.11 Ulcer of esophagus with bleeding; E43 Unspecified severe protein-calorie malnutrition; G93.41 Metabolic encephalopathy; I46.9 Cardiac arrest, cause unspecified; J96.01 Acute respiratory failure with hypoxia; J69.0 Pneumonitis due to inhalation of food and vomit; K57.31 Diverticulosis of large intestine without perforation or abscess with bleeding; N39.0 Urinary tract infection, site not specified; A04.71 Enterocolitis due to Clostridium difficile, recurrent; K56.7 Ileus, unspecified; K56.609 Unspecified intestinal obstruction, unspecified as to partial versus complete obstruction; I47.1 Supraventricular tachycardia; K92.0 Hematemesis; K22.10 Ulcer of esophagus without bleeding; R65.20 Severe sepsis without septic shock; D64.9 Anemia, unspecified; I35.0 Nonrheumatic aortic (valve) stenosis; R47.02 Dysphasia; L30.8 Other specified dermatitis; R13.10 Dysphagia, unspecified; F03.90 Unspecified dementia, unspecified severity, without behavioral disturbance, psychotic disturbance, mood disturbance, and anxiety; Z66 Do not resuscitate; B96.5 Pseudomonas (aeruginosa) (mallei) (pseudomallei) as the cause of diseases classified elsewhere; B96.1 Klebsiella pneumoniae [K. pneumoniae] as the cause of diseases classified elsewhere; B37.9 Candidiasis, unspecified; I95.9 Hypotension, unspecified; K43.9 Ventral hernia without obstruction or gangrene; K52.9 Noninfective gastroenteritis and colitis, unspecified; E83.42 Hypomagnesemia; E87.6 Hypokalemia; E03.9 Hypothyroidism, unspecified; R33.9 Retention of urine, unspecified; K64.8 Other hemorrhoids; Z20.828 Contact with and (suspected) exposure to other viral communicable diseases; S60.00XA Contusion of unspecified finger without damage to nail, initial encounter; X58.XXXA Exposure to other specified factors, initial encounter; Y93.89 Activity, other specified; Y92.89 Other specified places as the place of occurrence of the external cause; Z68.31 Body mass index [BMI] 31.0-31.9, adult; Y99.8 Other external cause status
CPT/HCPCS: 10040; 10045; 10078; 10081; 10203; 50010; 50101; 50249; 50411; 50555; 50687; 50980; 52265; 53307; 54022; 54118; 56525; 56526; 62110; 62900; 70005

== ENCOUNTER 2019-10-05 17:59 | Inpatient (IN) | payer MEDICARE, OTHER ==
[~2019-10-05] VITALS: Ht 170.2 cm; Wt 56.7 kg
[~2019-10-05 17:59] MED LIST changes: +BENADRYL ITCH28.3 GM TOP; +BIOTENE MOIST44.3 ML PO; +CHILDREN'S ZYRT10 M1 PER TUBE; +CHOLESTYRAMINE L4 GM PER TUBE; +FAMOTIDINE 20 M20 MG PER TUBE; +FIBERCON CHEWA625 MG PER TUBE; +LOPERAMIDE 2 MG2 M1 PO; +LOPRESSOR50 MG PER TUBE; +METOPROLOL TART25 MG PER TUBE; +NYAMYC15 GM TOP; +OMEPRAZOLE 20 M20 M1 PER TUBE; +POTASSIUM20 MEQ/15 PER TUBE; +SLEEP AID50 MG PER TUBE; +TRAMADOL 50 MG50 MG PER TUBE; +VENELEX OINTMEN60 GM TOP; +VITAMIN C500 M1 PER TUBE
[2019-10-05 18:00] VITALS: BP 126/55
[2019-10-05 18:46] LABS: HEMOGLOBIN 8.9 gm/dL (12.0-15.0)
[2019-10-05 18:47] LABS: ABSOLUTE NEUTROPHILS 5.9 thou/uL (1.4-8.2); BASOPHILS 0.6 % (0.0-2.0); EOSINOPHILS 3.5 % (0.0-3.0); HEMATOCRIT 26.9 % (37.0-47.0); LYMPHOCYTES 12.2 % (24.0-44.0); MCH 25.5 pg (26.0-34.0); MCV 77.1 fL (80.0-100.0); MONOCYTES 5.8 % (1.0-8.0); PLATELET COUNT 399 thou/uL (150-400); POLYS 77.9 % (36.0-66.0); RBC 3.48 mil/uL (4.20-5.00); RDW 18.5 % (10.5-14.5); WBC 7.5 thou/uL (4.0-11.0)
[2019-10-05 18:50] LABS: CALCIUM 8.5 mg/dL (8.5-10.1); CREATININE 0.6 mg/dL (0.6-1.0); POTASSIUM 3.9 mmol/L (3.5-5.1)
[2019-10-05 18:57] LABS: ALBUMIN 2.5 g/dL (3.4-5.0); TOTAL BILIRUBIN 0.3 mg/dL (0.2-1.0); TOTAL PROTEIN 6.8 g/dL (6.4-8.2)
[2019-10-05 19:55] LABS: URINE BILIRUBIN NEGATIVE (Negative); URINE BLOOD 2+ (Negative); URINE CLARITY CLOUDY; URINE COLOR YELLOW; URINE GLUCOSE-RANDOM* NEGATIVE (Negative); URINE KETONES NEGATIVE (Negative); URINE NITRITE-REFLEX NEGATIVE (Negative); URINE PROTEIN (DIPSTICK) 2+ (Negative); URINE SPECIFIC GRAVITY 1.015 (1.005-1.035); URINE UROBILINOGEN 0.2 E.U./dl (0.2-1.0)
[2019-10-05 19:57] LABS: URINE LEUKOCYTES-REFLEX 3+ (Negative)
[2019-10-05] MEDS ORDERED: PACERONE 200 M200 M1 PER TUBE (20:10)
[2019-10-05] MEDS ORDERED: ACETAMINOP160 MG/51 PO (20:10)
[2019-10-05] MEDS ORDERED: CLARITIN10 M3 PER TUBE (20:11)
[2019-10-05] MEDS ORDERED: ACETAMINOP160 MG/51 PER TUBE (20:11)
[2019-10-05] MEDS ORDERED: ACID CONTROLLER20 MG PER TUBE (20:12)
[2019-10-05] MEDS ORDERED: FERROUS SU220 MG/52 PER TUBE (20:12)
[2019-10-05] MEDS ORDERED: METOPROLOL TART25 MG PO (20:13)
[2019-10-05] MEDS ORDERED: HYDROCORTISONE30 GM TOP (20:13)
[2019-10-05] MEDS ORDERED: ANTI-DIARRHEAL2 M1 PER TUBE (20:13)
[2019-10-05] MEDS ORDERED: METOPROLOL TART25 MG PER TUBE (20:14)
[2019-10-05] MEDS ORDERED: MICATIN14 GM TOP (20:14)
[2019-10-05] MEDS ORDERED: MULTIVITAMINS1 EAC6 PER TUBE (20:15)
[2019-10-05] MEDS ORDERED: VITAMIN C500 M1 PER TUBE (20:17)
[2019-10-05] MEDS ORDERED: ZINC50 MG PER TUBE (20:18)
[2019-10-05] MEDS ORDERED: FIRVANQ25 MG/1 ML PER TUBE (20:19)
[2019-10-05] MEDS ORDERED: CARAFATE1 GM/10 ML PER TUBE (20:19)
[2019-10-05 20:32] LABS: BACTERIA-REFLEX >30 Many /HPF (None Seen); CASTS None Seen /LPF (None Seen); CRYSTALS None Seen /LPF (None Seen); SQUAMOUS 0-3 Few /LPF (0-3); URINE RBC 3-10 Few /HPF (0-2); URINE WBC-REFLEX >25 Many /HPF (0-5)
[2019-10-05 20:33] LABS: WBC CLUMPS Packed (None Seen)
--- NOTE | 2019-10-05 20:50 | NUR ---
This RN attempts to call facility multiple times. Placed on hold and phone continues to ring with each attempt. Unable to speak to SNF nurse. Camial notified.
[2019-10-05 20:54] LABS: ANISOCYTOSIS 2+
[2019-10-05 23:37] VITALS: BP 96/42
--- NOTE | 2019-10-05 23:38 | NUR ---
Attempted to call report to Medical floor nurse. Nurse is unable to take report and will call back.
[2019-10-06] VITALS (7 sets, daily range): BP systolic 96–109; BP diastolic 39–54
--- NOTE | 2019-10-06 07:58 | NUR ---
ASSUMED CARE OF PT FROM ED AT 0020HRS. PT IS AOX4 WITH SOME CONFUSION AND FORGETFULNESS. PT WAS ORIENTED TO THE UNIT AND HER ROOM. PT WAS ABLE TO ANSWER ALL ADMISSION RELATED QUESTIONS. ASSESSMENT CHARTED. ORDERS RECEIVED AND STARTED. TUBE FEEDING COULD NOT BE STARTED PUMPS ARE NOT AVAILABLE. SHOW JUMPING INSTRUCTOR AND HOUSE SUP INFORMED. PT DENIED PAIN, NAUSEA OR SOA. PT HAS A BROOKS FROM [facility]. CONSULTS CALLED. PT REPORTS GENERALIZED ITCH. PT WAS SEEN SCRATCHING HERSELF AND PT BROKE HER SKIN ON HER RIGHT BUTTOCK. PIC TAKEN. PT WAS ABLE TO GET COMFORTABLE AND SLEEP PART OF THE SHIFT. VSS AND NO S/S OF ACUTE DISTRESS.
--- NOTE | 2019-10-06 10:53 | NUR ---
patient covid test positive. patient already positive from group home. isolation remains in place.
[2019-10-06 11:01] LABS: ALBUMIN 2.2 g/dL (3.4-5.0); CALCIUM 8.2 mg/dL (8.5-10.1); CREATININE 0.7 mg/dL (0.6-1.0); MAGNESIUM 1.6 mg/dL (1.8-2.4); POTASSIUM 4.3 mmol/L (3.5-5.1); TOTAL BILIRUBIN 0.3 mg/dL (0.2-1.0); TOTAL PROTEIN 6.4 g/dL (6.4-8.2)
--- NOTE | 2019-10-06 15:40 | NUR ---
ASSUMED PATIENT CARE THIS AM AT APPROXIMATELY 0700. PATIENT AWAKE AND ALERT, ORIENTEDX 4 AT THIS TIME. SEEN BY GI THIS AM. INFORMED MD THAT FEEDING PUMP IS NOT WORKING AND ORDER OBTAINED FOR NUTRITION TO SEE PATIENT AND RECOMMEND BOLUS FEEDINGS. PATIENT TOLERATING MEDS WELL. NO BM NOTED YET THIS SHIFT. OUTSTANDING CDIFF SAMPLE NEEDED. ASSESSMENTS CHARTED
--- NOTE | 2019-10-06 17:57 | NUR ---
CALLED IV TEAM FOR BLOOD DRAW OR POSSIBLE MIDLINE PLACEMENT. UNABLE TO OBTAIN MIDLINE AND PATIENT STATING SHE WANTS TO BE DNR AND WANTS TO BE D/C'D SHE IS TIRED OF BEING "POKED" BY LAB. DOES NOT WANT ANY FURTHER INTERVENTIONS, CALLED SON DPOA AND LEFT MESSAGE, STILL HAVE NOT RECIEVED CALL BACK. MADE AWARE OF LABS UNABLE TO BE DRAWN AND PATIENT WISHES.
--- NOTE | 2019-10-06 18:06 | NUR ---
IV TEAM CALLED TO DRAW LABS ON PT. PT IS WELL KNOWN TO US. PT REFUSING LAB DRAWS BUT DID LET ME ASSESS VESSELS FOR POSSIBLE MIDLINE. R ARM ASSESSED UNABLE TO FIND COMPRESSABLE VESSELS OR LARGE ENOUGH VESSELS FOR MIDLINE. UNABLE TO USE L SIDE DUE TO HX MASTECTOMY. DISCUSSED POSSIBLE CENTRAL LINE WITH PT AND SHE REFUSED. STATES TIRED OF ALL THIS POKING AND WANTS TO BE LEFT ALONE. ALSO REQUESTING TO SPEAK WITH DR KEANE TOMORROW. AILEEN EDWARDS PRESENT FOR CONVERSATION AND PT'S REFUSAL. PT IS ALERT AND ORIENTED X4.
--- NOTE | 2019-10-06 19:40 | NUR ---
Upon entering patients room this nurse found patients iv's out (2) and they were sitting on her abdomen. When this nurse questioned patient she told this nurse that Dr. Miller came and took them out. I informed her that the iv's would need to be restarted. Pt. became furious and told this nurse that no iv's are going to be restarted. Pt. educated on the importance of needing a iv, but she still refused. Pt. bed alarm is on. Will attempt to discuss iv insertion later.
--- NOTE | 2019-10-06 22:30 | NUR ---
Pt. resting quietly in the bed and pt. again educated on the importance of needing to have a iv, but she became mad and refused it. Charge nurse (Adele) went to talk to the patient and she continued not to allow a iv to be started. Called and spoke to Imelda SOSA and she is aware. Left message on Dr. Miller's answering voice mail also. Pt. also does not want staff to keep her turned frequently. She did allow this nurse and staff to reposition her. Barrier cream applied to buttocks. Bed alarm is on.
[2019-10-07 03:31] VITALS: BP 89/38
--- NOTE | 2019-10-07 07:04 | NUR ---
Pt. rested quietly during the night when checked on during frequent rounds. She offers no c/o pain or shortness of air. Bed alarm is on.
[2019-10-07 08:54] VITALS: BP 108/39
[2019-10-07 11:53] VITALS: BP 112/41
[2019-10-07 14:50] VITALS: BP 123/59
--- NOTE | 2019-10-07 19:14 | NUR ---
ASSUMED PATIENT CARE THIS MORNING 0700. PATIENT AWAKE AND ALERT. PATIENT IS STILL REFUSING ANY LAB STICKS OR RESTARTING IV. SPOKE WITH DR. MAYA REGARDING PATIENT REFUSAL FOR TREATMENT WITH IV ABO OR REPEAT LAB DRAWS, STATES WILL ORDER PO ANTIBIOTICS, ALSO SPOKE WITH PATIENT SON ISABELLA SINGH. INFORMED THAT PATIENT WAS ASKING TO BE A NO CODE AND WANTS TO GO HOME. STATES THAT HE WANTS HIS MOTHER TO BE COMFORTABLE AND TAKEN CARE OF BUT DOES NOT WANT HER TO BE INTUBATED OR COMPRESSIONS IF HER CONDITION DETORIATES. DR. MAYA STATES THAT SHE WILL PUT IN ORDERS AFTER SHE SPEAKS WITH FAMILY. PATIENT TOLERATING BOLUS FEEDING THIS SHIFT. STOOL SAMPLE SENT FOR CDIFF, PENDING RESULTS
[2019-10-07 20:04] VITALS: BP 121/41
--- NOTE | 2019-10-08 05:05 | NUR ---
PATIENT ALERT AND ORIENTED X4. BEDREST. ACCUCHECKS Q6 HOURS. DENIES PAIN. TOLERATES Q4 TUBE FEEDING. RESTING QUIETLY.
[2019-10-08 08:33] VITALS: BP 115/46
--- NOTE | 2019-10-08 09:50 | NUR ---
WOUND CONSULT; AN ABRASION WAS NOTED TO THE LEFT BUTTOCK. NO S/S OF INFECTION AND NO NECROSIS. THIS PATIENT IS IN COVID RESTRICTIONS AND IS TO BE DISCHARGED TODAY. RECOMMENDATIONS; BRYAN QUIÑONES RN PRESENT
--- NOTE | 2019-10-08 10:02 | NUR ---
assumed patient care this am at approximately 0700. assessments and meds and charted. consult to dr. ko called and has seen patient today. states will speak with family and determine plan of care. patient tolerating feeding this am. 3x stools this am. patient asking for po food intake, educated patient on npo status. oral care given this am
--- NOTE | 2019-10-08 11:01 | NUR ---
PT IS FROM [facility] FAXED CLINICAL UPDATE TO FACILITY SPOKE WITH LANDON IN ADM SHE RECEIVED UPDATE. DP TO FOLLOW.
--- NOTE | 2019-10-08 14:33 | NUR ---
ASSUMED PATIENT CARE THIS SHIFT AT APPROXIMATELY 0700. PATIENT IS AWAKE ALERT OREINTED X4. REFUSING BLOOD DRAWS AND IV STICKS, TOLERATING FEEDINGS BUT HAVING SOME LOOSE DARK BMS. AWAITING CDIFF RESULTS. DR. TEIXEIRA CONSULTED FOR PATIENT AND HAS SEEN PATIENT THIS AM. WILL SPEAK WITH FAMILY REGARDING PLAN, POSSIBLY FOR PALLIATIVE CARE. AWAITING FAMILY DECISION. WILL CTM
[2019-10-08] MEDS ORDERED: MORPHINE S20 MG/5 ML PO (15:14)
[2019-10-08] MEDS ORDERED: LORAZEPAM I2 MG/1 M2 SUBLING (15:17)
--- NOTE | 2019-10-08 15:27 | NUR ---
INITIAL ASSESSMENT/DISCHARGE NOTE: Received consult. SW was admitted from [facility] due to upper GI bleed/colitis/recent positive COVID-19. Pt placed in Enhanced Isolation. Pt's COVID test on 10/04 was positive. Palliative care physician consulted and discussed pt's plan of care with pt's sons, Papo and Maksim. Pt was made a DNR and family is agreeable with pt going back to [facility] on comfort care measures. TONY spoke with Juanita at [facility] who confirmed they are able to accept pt back today on comfort care. [facility] [place] not allowing hospice providers into their facility at this time. TONY spoke with both of pt's sons to provide update and discuss discharge plan. Both are aware and in agreement with plan. SW updated pt's nurse and attending physician. Discharge orders/summary completed. TONY faxed to [facility] and notified Juanita. TONY arranged ambulance transportation through [facility] at 1800. TONY confirmed with [facility] that pt is COVID positive, and to enter Door #5 per facility's request. Chart copy requested. Nursing provided with number to call report. No additional SW needs identified at this time, but is available to assist should needs arise.
--- NOTE | 2019-10-08 15:38 | NUR ---
REPORT CALLED TO TAWNYA AT [facility]. PATIENT TO BE PICKED UP AT 6PM FOR TRANSPORT BACK TO FACILITY. OUT OF HOSPITAL DNR TO BE SIGNED BY PATIENT PRIOR TO DISCHARGE. RX SIGNED BY DR. GARCIA AND TO BE SENT WITH PATIENTS CHART
--- NOTE | 2019-10-08 18:42 | NUR ---
PATIENT TAKEN OFF UNIT FOR DISCHARGE VIA EMS STRETCHER, LEFT UNIT IN STABLE CONDITION. NO PATIENT BELONGINGS AT BEDSIDE. NO DISTRESS NOTED UPON TIME OF DISCHARGE. 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 LEFT UNIT WITH BROOKS/ PEG INTACT.
== END 2019-10-08 19:00 | DRG 177 ==
LOC: ER 17:59 → EROBS 21:06 → 3W 21:06
PROVIDERS: Physician Assistant; ADMIT Internal Medicine; ATTEND Internal Medicine
DX: U07.1 COVID-19 (principal); K22.11 Ulcer of esophagus with bleeding; N39.0 Urinary tract infection, site not specified; E46 Unspecified protein-calorie malnutrition; K56.609 Unspecified intestinal obstruction, unspecified as to partial versus complete obstruction; Z68.1 Body mass index [BMI] 19.9 or less, adult; K52.9 Noninfective gastroenteritis and colitis, unspecified; M17.0 Bilateral primary osteoarthritis of knee; E11.9 Type 2 diabetes mellitus without complications; I10 Essential (primary) hypertension; K21.9 Gastro-esophageal reflux disease without esophagitis; E78.00 Pure hypercholesterolemia, unspecified; J44.9 Chronic obstructive pulmonary disease, unspecified; D64.9 Anemia, unspecified; E03.9 Hypothyroidism, unspecified; F03.90 Unspecified dementia, unspecified severity, without behavioral disturbance, psychotic disturbance, mood disturbance, and anxiety; R47.02 Dysphasia; E78.5 Hyperlipidemia, unspecified; I35.0 Nonrheumatic aortic (valve) stenosis; R13.10 Dysphagia, unspecified; Z85.3 Personal history of malignant neoplasm of breast; Z90.12 Acquired absence of left breast and nipple; Z90.5 Acquired absence of kidney; Z90.49 Acquired absence of other specified parts of digestive tract; Z98.42 Cataract extraction status, left eye; Z98.41 Cataract extraction status, right eye; Z87.81 Personal history of (healed) traumatic fracture; Z90.3 Acquired absence of stomach [part of]; Z79.899 Other long term (current) drug therapy; Z51.5 Encounter for palliative care
CPT/HCPCS: 10080; 10879

== ENCOUNTER 2020-02-03 06:41 | Inpatient (IN) | payer OTHER ==
[~2020-02-03] VITALS: Ht 162.6 cm; Wt 58.2 kg
[~2020-02-03 06:41] MED LIST changes: +ACETAMINOP160 MG/51 PER TUBE; +ACETAMINOP160 MG/51 PO; +ACID CONTROLLER20 MG PER TUBE; +ANTI-DIARRHEAL2 M1 PER TUBE; +CARAFATE1 GM/10 ML PER TUBE; +CLARITIN10 M3 PER TUBE; +FERROUS SU220 MG/52 PER TUBE; +FIRVANQ25 MG/1 ML PER TUBE; +HYDROCORTISONE30 GM TOP; +LORAZEPAM I2 MG/1 M2 SUBLING; +METOPROLOL TART25 MG PO; +MICATIN14 GM TOP; +MORPHINE S20 MG/5 ML PO; +MULTIVITAMINS1 EAC6 PER TUBE; +ZINC50 MG PER TUBE
[2020-02-03 06:45] VITALS: BP 92/57
[2020-02-03 07:52] LABS: MCHC 27.1 g/dL (28.0-37.0)
[2020-02-03 07:53] LABS: MCH 18.2 pg (26.0-34.0); MCV 66.9 fL (80.0-100.0); PLATELET COUNT 500 thou/uL (150-400); RBC 1.83 mil/uL (4.20-5.00); RDW 19.1 % (10.5-14.5)
[2020-02-03 08:07] LABS: URINE BILIRUBIN NEGATIVE (Negative); URINE BLOOD NEGATIVE (Negative); URINE CLARITY CLOUDY; URINE COLOR YELLOW; URINE GLUCOSE-RANDOM* NEGATIVE (Negative); URINE KETONES NEGATIVE (Negative); URINE NITRITE-REFLEX NEGATIVE (Negative); URINE PROTEIN (DIPSTICK) TRACE (Negative); URINE SPECIFIC GRAVITY 1.015 (1.005-1.035)
[2020-02-03 08:10] LABS: URINE LEUKOCYTES-REFLEX 3+ (Negative)
[2020-02-03 08:11] LABS: CALCIUM 8.6 mg/dL (8.5-10.1); CREATININE 1.8 mg/dL (0.6-1.0)
[2020-02-03 08:16] LABS: ALBUMIN 2.3 g/dL (3.4-5.0); DIRECT BILIRUBIN 0.3 mg/dL (<0.1-0.2); TOTAL BILIRUBIN 0.5 mg/dL (0.2-1.0); TOTAL PROTEIN 6.6 g/dL (6.4-8.2)
[2020-02-03 08:26] LABS: HEMATOCRIT 12.2 % (37.0-47.0); HEMOGLOBIN 3.3 gm/dL (12.0-15.0)
--- NOTE | 2020-02-03 08:42 | NUR ---
VERBAL CONSENT FOR BLOOD TRANSFUSION OBTAINED FROM SON (DPOA) SYDNEY LEIVA [phone]
[2020-02-03] MEDS ORDERED: VITAMIN C + RO500 MG PO (09:18)
[2020-02-03] MEDS ORDERED: TYLENOL325 MG PO (09:18)
[2020-02-03] MEDS ORDERED: FAMOTIDINE20 MG PO (09:19)
[2020-02-03] MEDS ORDERED: BENADRYL25 MG PO (09:19)
[2020-02-03] MEDS ORDERED: LORATIDINE 10 M10 M1 PO (09:20)
[2020-02-03] MEDS ORDERED: ONDANSETRON HCL4 M2 PO (09:20)
[2020-02-03 09:32] LABS: BACTERIA-REFLEX >30 Many /HPF (None Seen); CASTS None Seen /LPF (None Seen); CRYSTALS None Seen /LPF (None Seen); SQUAMOUS 0-3 Few /LPF (0-3); URINE RBC None Seen /HPF (0-2); URINE WBC-REFLEX >25 Many /HPF (0-5)
--- NOTE | 2020-02-03 10:12 | NUR ---
DPOA ISABELLA LEIVA CALLED, STATING HE SPOKE WITH BROTHER AND HAVE DECIDED TO CHANGE THEIR MINDS. STATES HE WOULD WANT PT TO BE PLACED ONLY ON COMFORT CARE, NO BLOOD TRANSFUSIONS. REPAIR CAMERAMAN AND ERP SPOKE WITH CIERRA EXPLAINING PT'S HEALTH STATUS AT THE MOMENT, HE VERBALIZED UNDERSTANDING.
--- NOTE | 2020-02-03 10:30 | NUR ---
PER ATTENDING- FAMILY SHOULD BE CONTACTED TO "CLARIFY" COMFORT MEASURES, IVF AND ABT ADMINISTRATION. MEDICAL PSYCHOTHERAPIST SPOKE WITH CIERRA LEIVA WHO STATED THAT HE'S ON BOARD WITH ADMINISTRATION OF ANTIBIOTICS AND NS ONLY. NOTIFIED ERP.
--- NOTE | 2020-02-03 10:51 | NUR ---
X-RAY CONFIRMED PLACEMENT OF CENTRAL LINE TO LEFT EJ.
--- NOTE | 2020-02-03 10:51 | NUR ---
X-RAY CONFIRMED PLACEMENT OF CENTRAL LINE TO RIGHT EJ.
--- NOTE | 2020-02-03 11:09 | NUR ---
CONSULTED TO PLACE A CENTRAL LINE. ORDER AND CONSENT NOTED. THE EXTERNAL JUGULAR WAS WIDLY PATENT. UNABLE TO LOCATE THE INTERNAL JUGULAR. A #6F TRIPLE LUMEN CENTRAL LINE WAS PLACED PER HOSPITAL POLICY AFTER A BEDSIDE TIMEOUT WAS COMPLETED. THE PATIENT IS CONFUSED AND UNABLE TO RESPOND TO TEACHING. THE 25CM LINE ADVANCED TO 7CM EXTERNAL. A STAT CHEST XRAY CONFIRMED LINE IN THE SVC AND RELEASED FOR USE
[2020-02-03 11:12] VITALS: BP 95/36
[2020-02-03 11:21] VITALS: BP 103/43
[2020-02-03 13:46] LABS: ABSOLUTE NEUTROPHILS 14.5 thou/uL (1.4-8.2); ANISOCYTOSIS 2+; MICROCYTES 2+
[2020-02-03 13:47] LABS: HYPOCHROMASIA 3+; POLYCHROMASIA SLIGHT
--- NOTE | 2020-02-03 17:01 | NUR ---
PATIENT ARRIVED AT 1213 ALERT XS 1-2. V.S 97.8 18 68 108/44 O2 SAT = 96%2L/NC. HAS EJ TRIPLE LUMEN TO RIGHT NECK AND SINGLE LUMEN TO LEFT NECK. O2 2 L/NC. WOUND PICTURES OF BACK AND SACRAL AREA TAKEN. HAS OWN TEETH MISSING AND CAVITIES. PUREED DIET. HAS SOME BRUISING TO BODY AND SCARS. LEFT MASTECTOMY AND SKIN TAG. HAS PEG TUBE TO ABD. BROOKS CATH WITH DARK YELLOW URINE D/D. PT DOES NOT ANSWER QUESTIONS APPROPRATELY. DR ARANDA IS HOSPITALIST AND AWARE OF ADMISSION.
--- NOTE | 2020-02-03 18:53 | NUR ---
PATIENT ARRIVED TO UNIT THIS AFTERNOON. VERY CONFUSED; NG AND PEG TUBE IN PLACE. PROVIDER AWARE; STATED "STRICTLY COMFORT CARE". MORPHINE AND ATIVAN ON EMAR NEEDED
[2020-02-03 21:33] VITALS: BP 111/51
--- NOTE | 2020-02-04 03:24 | NUR ---
PT CARE ASSUMED WITH PT RESTING IN BED.PT IS ON COMFORT CARE.MOUTH HYGIENE DONE AND PT Q2 REPOSITIONING.PT HAS MORPHINE AND ATIVAN FOR COMFORT MEASURES.PT HAS A BROOKS IN PLACE.WILL CONTINUE TO MONITOR PER POC
[2020-02-04 06:22] VITALS: BP 112/37
[2020-02-04 07:30] VITALS: BP 91/44
--- NOTE | 2020-02-04 08:30 | NUR ---
RD consult received for difficulty eating. Chart reviewed and pt on comfort care measures. Defer nutrition assessment at this time.
--- NOTE | 2020-02-04 18:46 | NUR ---
Patient slept for most of the shift, comfort care given.
[2020-02-04 19:55] VITALS: BP 78/46
== END 2020-02-04 23:47 | DRG 871 ==
LOC: ER 06:41 → EROBS 11:05 → 4W 11:05
PROVIDERS: Emergency Medicine; ADMIT Hospitalist; ATTEND Hospitalist
PROC: 02HV33Z Insertion of Infusion Device into Superior Vena Cava, Percutaneous Approach (ICD-10-PCS; principal; 2020-02-03)
DX: A41.9 Sepsis, unspecified organism (principal); G92 Toxic encephalopathy; K92.2 Gastrointestinal hemorrhage, unspecified; E87.2 Acidosis; N39.0 Urinary tract infection, site not specified; N17.9 Acute kidney failure, unspecified; E78.00 Pure hypercholesterolemia, unspecified; K21.9 Gastro-esophageal reflux disease without esophagitis; D64.9 Anemia, unspecified; J44.9 Chronic obstructive pulmonary disease, unspecified; I10 Essential (primary) hypertension; M19.90 Unspecified osteoarthritis, unspecified site; E03.9 Hypothyroidism, unspecified; E78.5 Hyperlipidemia, unspecified; Z51.5 Encounter for palliative care; M17.0 Bilateral primary osteoarthritis of knee; Z66 Do not resuscitate; Z86.19 Personal history of other infectious and parasitic diseases; Z85.3 Personal history of malignant neoplasm of breast; Z90.12 Acquired absence of left breast and nipple; Z90.49 Acquired absence of other specified parts of digestive tract; Z98.42 Cataract extraction status, left eye; Z98.41 Cataract extraction status, right eye; Z79.899 Other long term (current) drug therapy
CPT/HCPCS: 10040